=== PATIENT | female | born 2000 | race Two or more races ===

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

== ENCOUNTER → 2022-01-05 11:03 | Outpatient (BNVA) | payer MEDICAID, SELFPAY | PROVIDERS: Visit Provider Advanced Practice Midwife | DX: Z30.42 Encounter for surveillance of injectable contraceptive (principal) | CPT/HCPCS: 96372; 99211 ==

== ENCOUNTER → 2022-03-30 14:37 | Outpatient (BNVA) | payer MEDICAID, SELFPAY | PROVIDERS: Visit Provider Advanced Practice Midwife | DX: Z30.42 Encounter for surveillance of injectable contraceptive (principal) | CPT/HCPCS: 96372; 99211 ==

== ENCOUNTER 2023-03-11 12:43 | Emergency (ER) | payer OTHER, SELFPAY ==
[2023-03-11 13:32] VITALS: BP 126/75; PULSE 83; RESP 15; TEMP 36.2; O2SAT 98; BMI 28.2
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
[2023-03-11 15:02] VITALS: BP 130/66; PULSE 76; RESP 18; TEMP 36.5; O2SAT 100
== END 2023-03-11 15:26 | disposition home or self-care (01) ==
PROVIDERS: Emergency Provider Emergency Medicine Emergency Medical Services
DX: S50.02XA Contusion of left elbow, initial encounter (principal); S39.012A Strain of muscle, fascia and tendon of lower back, initial encounter; V43.52XA Car driver injured in collision with other type car in traffic accident, initial encounter; Y93.9 Activity, unspecified; Y92.9 Unspecified place or not applicable
CPT/HCPCS: 73070; 99283

== ENCOUNTER 2025-08-16 02:43 | Emergency (ER) | payer MEDICAID, SELFPAY ==
--- NOTE | ~2025-08-16 | XR_ITS ---
CLINICAL HISTORY: cp sob 1 view chest x-ray Comparison: None provided Findings: The lungs are clear. Normal size heart. No acute fracture. IMPRESSION: 1. No acute findings. This document has been electronically signed by: Miguel Levine MD on 08/16/2025 05:50:21
--- NOTE | ~2025-08-16 | US_ITS ---
CLINICAL HISTORY: RUQ pain eval for acute rickey US abdomen limited Comparison: None provided Findings: The visualized pancreas is normal. The aorta and inferior vena cava are normal caliber. The appearance of the liver suggests fatty infiltration. There is no intrahepatic bile duct dilatation. The common duct is 3.8 mm in diameter. There are tiny gallstones. The gallbladder is otherwise normal. There is no sonographic Mendez sign. The main portal vein is antegrade. The right kidney is 10.4 cm in length. No ascites. IMPRESSION: 1. Hepatic steatosis. 2. Cholelithiasis This document has been electronically signed by: Francisco Goode MD on 08/16/2025 08:19:28
[2025-08-16 02:45] VITALS: PULSE 78
--- NOTE | 2025-08-16 02:46 | ECG_ITS ---
Test Reason : CHEST PAIN Blood Pressure : */* mmHG Vent. Rate : 69 BPM Atrial Rate : 69 BPM P-R Int : 150 ms QRS Dur : 82 ms QT Int : 426 ms P-R-T Axes : 60 20 22 degrees QTcB Int : 456 ms Normal sinus rhythm Normal ECG No previous ECGs available Referred By: [facility] Electronically Signed By: YEISON HOYT MD
[2025-08-16 02:53] VITALS: BP 145/89; PULSE 76; RESP 18; TEMP 36.5; O2SAT 100; BMI 33.4
[2025-08-16 03:13] VITALS: BP 145/89; PULSE 80; RESP 16; TEMP 36.5; O2SAT 100
[2025-08-16 03:26] LABS: Hematocrit 38.4 % (37.0-47.0); Hemoglobin 12.7 g/dl (12.0-16.0); Imm Gran Abs Auto 0.02 X10*3/uL (0.00-0.03); Imm Gran Pct Auto 0.3 % (0.0-0.4); Lymphocytes Absolute Auto 2.7 X10*3/uL (1.2-4.9); MANUAL DIFF FLAG NO; Mean Corpuscular HGB Conc 33.1 g/dl (31.0-35.0); Mean Corpuscular Hemoglobin 26.6 pg (27.0-33.0); Mean Corpuscular Volume 80.3 fL (80.0-98.0); NRBC Abs Auto 0.000 X10*3/uL (0.0-0.012); NRBC Pct Auto 0.0 /100WBC (0.0-0.2); Platelet Count 370 X10*3/uL (160-400); Red Blood Count 4.78 X10*6/uL (4.20-5.50); White Blood Count 7.9 X10*3/uL (4.8-10.8)
--- OUTSIDE RECORDS SUMMARY | 2025-08-16 03:36 | XMS_ITS | Encounter Summary ---
Author Organization [employer] Address [address] [place] [address] Care Team Providers Care Overhead Foreman Name Role Phone Alyssia [facility] Primary Care Provider [phone] Encounter Details Date Type Department Care Team ([facility] Contact Info) Description 08/16/2025 Orders Only GENERIC EXTERNAL DATA DEPARTMENT Provider, Generic External Data Social History Tobacco Use Types Packs/Day Years Used Date Smoking Tobacco: Some Days Cigarettes Smokeless Tobacco: Never Alcohol Use Standard Drinks/Week Comments Never 0 (1 standard drink = 0.6 oz pur e alcohol) Depression Answer Date Recorded Patient Health Questionnaire-9 Score 0 07/08/2025 Patient Health Questionnaire-9 Score 0 07/08/2025 Last PHQ-9: Questionnaire Data Not on file 1 Housing Stability Answer Date Recorded What is your housing situation today? I have breana huston 07/11/[address] you li ve. Do you have problems with any of the following? None of the above 07/11/2023 Food Insecurity Answer Date Recorded Within the past 12 months, y ou worried that your food would run out before you got money to buy more: Never True 07/11/2023 Within the past 12 months,th e food you bought just didn't last and you didn't have enough money to get more: Never True 09/2022 Transportation Answer Date Recorded In the past 12 months, has l ack of transportation kept you from medical appts, meetings, work or from getting things needed for daily living? No 07/11/2023 Utilities Answer Date Recorded In the past 12 months, has t he electric, gas, oil or water company threatened to shut off services in your home? No 07/11/2023 Depression Answer Date Recorded Patient Health Questionnaire-2 Score 0 07/08/2025 Comments No Sex and Gender Information Value Date Recorded Sex Assigned at Female 07/10/2022 10:16 AM EDT Legal Sex Female 10:16 AM EDT Gender Identity Female 07/10/2022 10:16 AM EDT Sexual Orientation Choose not to disclose 2021 10:16 AM EDT documented as of this encounter Plan of Treatment Upcoming Encounters Date Type Department Care Team (Late st Contact Info) Description 09/25/2025 11:00 AM EST Office Visit [facility] OPTOMETRY [address] [place] [address] Porter, Yoana, OD [address] [place] [address] 09/30/2025 10:30 AM EST Office Visit [facility] MEDICINE [address] [place] [address] Bryan, Ewa, MANUFACTURING DESIGN ENGINEER [address] [place] [address] documented as of this encounter Procedures Procedure Name Priority Date/Time Associated Diagnosis Comments CBC WITH AUTO DIFFERENTIAL Routine 08/16/2025 3:19 AM EST documented in this encounter Results * (ABNORMAL) CBC auto differential (08/16/2025 3:19 AM EST) White Blood Count 7.9 4.8 - 10.8 X10*3/uL [facility] Red Blood Count 4.78 4.20 - 5.50 X10*6/uL [facility] Hemoglobin 12.7 12.0 - 16.0 g/dl [facility] Hematocrit 38.4 37.0 - 47.0 % [facility] Mean Corpuscular Volume 80.3 80.0 - 98.0 fL [facility] Mean Corpuscular Hemoglobin 26.6(L) 27.0 - 33.0 pg [facility] Mean Corpuscular HGB Conc 33.1 31.0 - 35.0 g/dl [facility] Red Cell Distribution Width 12.9 11.0 - 16.0 % [facility] Platelet Count 370 160 - 400 X10*3/uL [facility] Mean Platelet Volume 9.5 9.4 - 12.3 fL [facility] Neutrophils Percent Auto 57.6 45 - 73 % [facility] Imm Gran Pct Auto 0.3 0.0 - 0.4 % [facility] Lymphocytes Percent Auto 34.1 20 - 40 % [facility] Monocytes Percent Auto 5.6 2 - 11 % [facility] Eosinophils Percent Auto 1.9 0 - 4 % [facility] Basophils Percent Auto 0.5 0 - 2 % [facility] NRBC Pct Auto 0.0 0.0 - 0.2 /100WBC [facility] Neutrophils Absolute Auto 4.6 2.0 - 8.3 x10*3/uL [facility] Imm Gran Abs Auto 0.02 0.00 - 0.03 X10*3/uL [facility] Lymphocytes Absolute Auto 2.7 1.2 - 4.9 X10*3/uL [facility] Monocytes Absolute Auto 0.4 0.1 - 1.2 X10*3/uL [facility] Eosinophils Absolute Auto 0.2 0.0 - 0.4 X10*3/uL [facility] Basophils Absolute Auto 0.0 0.0 - 0.2 X10*3/uL [facility] NRBC Abs Auto 0.000 0.0 - 0.012 X10*3/uL [facility] 08/16/2025 3:19 AM EST 08/16/2025 3:24 AM EST us Generic External Data Provider LAB BLOOD ORDERAB LES Final Result [facility] [address] [place] [address] [phone] documented in this encounter Visit Diagnoses Not on filedocumented in this encounter Additional Health Concerns Assessment Noted Time PHQ-9 Depression Total Score: 0 07/08/20 25 11:48 AM EDT documented as of this encounter Care Teams Overhead Foreman Relationship Specialty Start Date End Date Bryan SAMMIE Mcneil [address] [place] [phone] PCP - General Family Medicine 03/07/22 documented as of this encounter
--- OUTSIDE RECORDS SUMMARY | 2025-08-16 03:36 | XMS_ITS | Clinical Summary ---
Author Organization [employer] Address [address] [facility] 7[address] [place] [address] Care Team Providers Care Commercial Account Executive Name Role Phone Ewa Cade [facility] Primary Care Provider [phone] Allergies No known active allergies Medications * This document contains information received from the source organization and may not represent a complete record from that organization. Spacer/Aero-Holdin g Chambers (Pro Comfort Spacer Adult) miscIndications:Mo derate persistent asthma without complication Use as directed with inhaler 1 each 3 Active medroxyPROGESTERon e (Depo-Provera) 150 MG/ML injectionIndicatio ns:Encounter for initial prescription of injectable contraceptive Inject 1 mL (150 mg) into the shoulder, thigh, or buttocks every 3 (three) months. 1 mL 3 3 Active cetirizine (ZyrTEC) 10 MG tabletIndications: Moderate persistent asthma without complication TAKE 1 TABLET BY MOUTH EVERY DAY IN THE MORNING 90 tablet 1 5 Active albuterol (Ventolin HFA) 108 (90 Base) MCG/ACT inhalerIndications :Moderate persistent asthma without complication INHALE 2 PUFFS BY MOUTH EVERY 4 TO 6 HOURS NEEDED WITH SPACER 18 g 11 5 Active budesonide-formote rol (Symbicort) 80-4.5 MCG/ACT inhalerIndications :Moderate persistent asthma without complication INHALE 2 PUFFS BY MOUTH TWICE DAILY. RINSE MOUTH AFTER USING. DO NOT SWALLOW 10.2 g 11 5 Active NIFEdipine CC (Adalat CC) 30 MG 24 hr tablet Take 1 tablet by mouth Once per day. 5 Active Hospital, Clinic, or Other Facility Administered Medication Ordered Dose Route Frequency Start Date End Date Status medroxyPROGESTERone (Depo-Provera) injection 150 mgIndications:Encounte r for initial prescription of injectable contraceptive 150 mg IM Every 3 months 01/10/2023 12/19/2112 Active Active Problems Problem Noted Date Diagnosed Date Acute cough 09/18/2024 Reduced visual acuity 01/10/2023 Allergic rhinitis 04/07/2013 Anxiety disorder, unspecified 03/03/2013 Overview (03/08/2023): Sertraline 25mg Trazodone PRN Social anxiety/panic disorder On waitlist with [facility] Asthma 01/27/2013 Overview (03/08/2023): Symbicort Albuterol Cetirizine Assessment & Plan (09/18/2024 1:37 PM EST): Pt here with an acute asthmatic exacerbation, not improving despite regular use of inhalers Plan: Short prednisone taper, Z-pack, continue inhalers Follow up if no improvement or worsening Encounters * This document contains information received from the source organization and may not represent a complete record from that organization. Date Type Department Care Team Description 08/16/2025 Orders Only GENERIC EXTERNAL DATA DEPARTMENT Provider, Generic External Data 07/08/2025 11:30 AM EDT Office Visit [facility] [address] [place] [id number] [facility] Gestational hypertension without significant proteinuria, (Primary Dx); Anxiety disorder, unspecified type; Encounter for immunization; Encounter for vaccination 07/08/2025 Travel from Last 3 Months Immunizations Immunization Administration Dates Next Due HPV 9-Valent 11/30/2015,02/26/2015 Hep A, ped/adol, 2 dose 02/05/2019,01/28/2018 Hep B, Adolescent or Pediatric 2002,2001,2002 Hib (HbOC) 06/18/2003,2002,2002 IPV 03/21/2006,2002,2002 Influenza injectable quadriv alent IIV4 with preservative 11/30/2015 Influenza injectable quadriv alent preservative free 10/08/2019 Influenza, IIV3, injectable 06/17/2010, 8 Influenza, seasonal, injecta ble, preservative free 07/08/2025 MMR 03/21/2006,03/23/2003 Meningococcal MCV4P [id number]-135 02/05/2019,02/27/20 15 Pfizer Covid-19 Vaccine 12+ 07/08/2025 Pneumococcal Conjugate PCV 7 06/18/2003, 2002,2002,05/22 Tdap 02/26/2015 Varicella 04/07/2008,03/23/2003 Family History Medical History Relation Name Comments Breast cancer Neg Hx Colon cancer Neg Hx Social History Tobacco Use Types Packs/Day Years Used Date Smoking Tobacco: Some Days Cigarettes Smokeless Tobacco: Never Tobacco Cessation:Ready to Q uit: Not Asked; Counseling Given: Not Answered Alcohol Use Standard Drinks/Week Comments Never 0 [...] not to disclose 2021 10:16 AM EDT Last Filed Vital Signs Vital Sign Reading Time Taken Comments Blood Pressure 128/82 07/08/2025 11:46 AM EDT Pulse 86 07/08/2025 11:46 AM EDT Temperature 37.3 C (99.2 F) 07/08/2025 11:46 AM EDT Respiratory Rate 18 07/08/2025 11:46 AM EDT Oxygen Saturation 98% 09/18/2024 1:09 PM EST Inhaled Oxygen Concentration - - Weight 71.4 kg (157 lb 6.4 oz) 07/08/2025 11:46 AM EDT Height 149.9 cm (4' 11 ) 07/08/2025 11:46 AM EDT Body Mass Index 31.79 07/08/2025 11:46 AM EDT Plan of Treatment Upcoming Encounters Date Type Department Care Team (Late st Contact Info) Description 09/25/2025 11:00 AM EST Office Visit [facility] [address] [place] [address] Porter, Yoana, OD [address] [place] [address] 09/30/2025 10:30 AM EST Office Visit [facility] [address] [place] [address] [place], [place], [facility] [address] [place] [address] Health Maintenance Due Date Last Done Comments HIV Screening 2002 Lipid Panel 2002 Disability Screening 2002 Alcohol/Substance Use Screening 2014 Family Planning (PISQ) 2017 Meningococcal B Vaccine (1 of 2 - Standard) 2018 Hepatitis C Screening 2020 Pneumococcal Vaccine: Pediatrics (0 to 5 Years) and At-Risk Patients (6 to 49) Years (1 of 2 - PCV) 2021 06/18/2003, 2002, 2002, Additional history exists Pap Smear 2023 SDOH Screening 02/07/2024 02/06/2023 Chlamydia and Gonorrhea Screening 10/06/2025 10/06/2024, 10/06/2024, 03/02/2021, Additional history exists Depression Screening 07/08/2026 07/08/2025, 07/08/20 25 Tobacco Screening 07/09/2026 07/09/2025 DTaP/Tdap/Td Vaccines (7 - Td or Tdap) 03/09/2035 03/09/2025, 02/26/2015, 03/21/2006, Additional history exists Zoster Vaccines (1 of 2) 2052 RSV Patients and Patients Aged 60 years or older (1 - 1-dose 75+ series) 2077 Hepatitis B Vaccines Completed 2002, 2002, 2002 HIB Vaccines Completed 06/18/2003, 09/10, 2002, Additional history exists IPV Vaccines Completed 03/21/2006, 12/09, 2002, Additional history exists HPV Vaccines Completed 11/30/2015, 02/26/2015 Hepatitis A Vaccines Completed 02/05/2019, 01/29/20 18 Meningococcal Vaccine Completed 02/05/2019, 015 COVID-19 Vaccine Completed 07/08/2025, 04/2021, 04/27/2021 Influenza Vaccine Completed 07/08/2025, , 11/30/2015, Additional history exists RSV under 20 months Aged Out No longe r eligible based on patient's age to complete this topic Rotavirus Vaccines Aged Out No longer eligible based on patient's age to complete this topic Procedures Procedure Name Priority Date/Time Associated Diagnosis Comments CBC WITH AUTO DIFFERENTIAL Routine 08/16/2025 3:19 AM EST from Last 3 Months Results * (ABNORMAL) CBC auto differential (08/16/2025 3:19 AM EST) White Blood Count 7.9 4.8 - 10.8 X10*3/uL [facility] Red Blood Count 4.78 4.20 - 5.50 X10*6/uL [facility] Hemoglobin 12.7 12.0 - 16.0 g/dl [facility] Hematocrit 38.4 37.0 - 47.0 % [facility] Mean Corpuscular Volume 80.3 80.0 - 98.0 fL [facility] Mean Corpuscular Hemoglobin 26.6(L) 27.0 - 33.0 pg [facility] Mean Corpuscular HGB Conc 33.1 31.0 - 35.0 g/dl [facility] Red Cell Distribution Width 12.9 11.0 - 16.0 % [facility] Platelet Count 370 160 - 400 X10*3/uL [facility] Mean Platelet Volume 9.5 9.4 - 12.3 fL [facility] Neutrophils Percent Auto 57.6 45 - 73 % [facility] Imm Gran Pct Auto 0.3 0.0 - 0.4 % [facility] Lymphocytes Percent Auto 34.1 20 - 40 % [facility] Monocytes Percent Auto 5.6 2 - 11 % [facility] Eosinophils Percent Auto 1.9 0 - 4 % [facility] Basophils Percent Auto 0.5 0 - 2 % [facility] NRBC Pct Auto 0.0 0.0 - 0.2 /100WBC [facility] Neutrophils Absolute Auto 4.6 2.0 - 8.3 x10*3/uL [facility] Imm Gran Abs Auto 0.02 0.00 - 0.03 X10*3/uL [facility] Lymphocytes Absolute Auto 2.7 1.2 - 4.9 X10*3/uL [facility] Monocytes Absolute Auto 0.4 0.1 - 1.2 X10*3/uL [facility] Eosinophils Absolute Auto 0.2 0.0 - 0.4 X10*3/uL [facility] Basophils Absolute Auto 0.0 0.0 - 0.2 X10*3/uL [facility] NRBC Abs Auto 0.000 0.0 - 0.012 X10*3/uL [facility] 08/16/2025 3:19 AM EST 08/16/2025 3:24 AM EST us Generic External Data Provider LAB BLOOD ORDERAB LES Final Result [facility] [address] [place] [address] [phone] from Last 3 Months Insurance Packet [employer] C3 * Guarantor: Gilberto Flores Account Type Relation to Patient Date of Phone Billing Address Personal/Family Self [address] [place] [address] Care Teams Commercial Account Executive Relationship Specialty Start Date End Date Ewa Cade FNP [address] [place] [address] PCP - General Family Medicine 03/07/22
[2025-08-16 03:40] LABS: IDNOW Serial# 55D5AD1C
[2025-08-16 03:41] LABS: COVID-19 Test Negative (Negative); IDNOW Serial# 58CA691E; Influenza B2 Negative (Negative)
[2025-08-16 03:49] LABS: Alanine Aminotransferase 41 U/L (0-31); Albumin Level 4.7 g/dL (3.5-5.0); Alkaline Phosphatase 104 U/L (39-117); Anion Gap 12 (12-20); Aspartate Amino Transferase 33 U/L (5-31); Blood Urea Nitrogen 12 mg/dL (9-16); Calcium 9.4 mg/dL (8.4-10.2); Carbon Dioxide 20 mmol/L (22-29); Chloride 111 mmol/L (96-108); Creatinine Clr Calc Pharmacy 111.9; Estimated Glomerular Filt Rate > 60; Magnesium 2.0 mg/dL (1.6-2.6); Potassium 4.3 mmol/L (3.3-5.1); Sodium 139 mmol/L (135-145); Total Protein 7.3 g/dL (6.5-8.0); Troponin-I High Sensitivity < 2.7 ng/L (<3.5-17.0)
--- NOTE | 2025-08-16 04:55 | ED_ITS ---
HPI - Chest Pain General Chief Complaint: Chest Pain Stated Complaint: CP Time Seen by Provider: 08/16/25 04:55 Source: patient Mode of arrival: ambulatory Limitations: no limitations History of Present Illness ED Provider: Dr. Blanca Jones HPI narrative: 25 year old female, currently post- (2 months) with no significant past medical or surgical history presents with epigastric/right upper quadrant pain that began around midnight while she was awake and bottle-feeding her infant. Pain is described as constant ?pressure? under the breastbone, radiating to the right mid-back. Current episode has persisted longer than two previous similar episodes that occurred within the first month after delivery and resolved spontaneously after 1?2 hours. Associated symptoms: nausea and a sensation of needing a bowel movement; denies vomiting, diarrhea, shortness of breath, or fever. No clear association with food intake; typically eats twice daily. Took acetaminophen at onset (~0000) with minimal relief. No prior abdominal surgeries. Regular menses resumed post-. Related Data Previous Rx's ?Medication ?Instructions ?Recorded medroxyprogesterone 150 mg/mL 150 mg IM Q12W #1 mL intramuscular suspension medroxyprogesterone 150 mg/mL 150 mg IM [id number] 3 mon ths #1 mL 01/02/22 intramuscular suspension cyclobenzaprine 5 mg tablet 5 mg PO TID PRN muscle spa sm #10 03/11/23 tabs ibuprofen 600 mg tablet 600 mg PO TID PRN pain #14 t abs 03/11/23 ibuprofen 600 mg tablet 600 mg PO Q8H PRN fever or p ain 08/16/25 #30 tabs ondansetron 4 mg disintegrating 4 mg PO Q8H PRN nausea and 08/16/25 tablet vomiting #10 tabs Allergies Allergy/AdvReac Type Severity Reaction Status Date / Time No Known Allergies Allergy Verified 08/16/25 02:55 Review of Systems 2 Review of Systems: as per HPI, full review of systems performed and negative but for the above mentioned pertinent positives and negatives. [facility] Social History Social History Alcohol intake: never Smoked in Last 30 Days: No Use of substances other than those prescribed or required for medical reasons: No Advance Directives: No Do you have a plan to hurt others: No Plan Patient : No Gender identity: Female Physical Exam 2 Exam: Exam: GENERAL: Ill-Appearing, appears uncomfortable. SKIN: Normal skin color for ethnicity, warm, dry, no rashes noted. HEENT:? Normocephalic, atraumatic, no stridor, dry mucous membranes, dentition intact, EOMI. NECK: Soft, supple, full ROM, midline structures nontender, no step-offs, no deformities, no lymphadenopathy. CHEST: Heart regular tachycardia, no murmurs, symmetric chest rise and fall. PULMONARY: Clear to auscultation bilaterally, diminished at the bases, no labored breathing, no wheezes/rhales/rhonchi. ABDOMINAL: Soft, nondistended, RUQ tenderness to palpation with voluntary guarding, quiet bowel sounds in all quadrants. : Deferred. MUSCULOSKELETAL: Normal tone, full range of motion, no deformities, no peripheral edema. NEURO: Alert and oriented x3, CN II through XII intact, equal strength and sensation bilateral upper and lower extremities, no focal neurologic deficits.? PSYCHIATRIC: Flat affect, fluid speech, good eye contact and appropriate demeanor. Vital Signs: Vital Signs: Last Vital Signs Temp 98.1 F 08/16/25 07:28 Pulse 75 08/16/25 07:28 Resp 16 08/16/25 07:28 BP 136/73 08/16/25 07:28 Pulse Ox 100 08/16/25 07:28 O2 Del Method Room Air 08/16/25 07:28 BMI result Body Mass Index 33.4 Medications Administered Discontinued Medications Generic Name Dose Route Start Last Admin Trade Name Roman PRN Reason Stop Dose Admin Ibuprofen 600 mg 08/16/25 05:30 08/16/25 06:16 Ibuprofen 600 Mg Tablet PO 08/16/25 05:31 600 mg ONCE ONE Administration Ondansetron HCl 4 mg 08/16/25 05:30 08/16/25 06:16 Ondansetron Odt 4 Mg Tab.Rapdis TRANSLINGU 08/16/25 05:31 4 mg ONCE ONE Administration Medical Decision Making Medical Decision Making MDM Narrative: 25 year old post- female with episodic RUQ/epigastric pain, nausea, and positive Mendez?s sign. Bedside ultrasound demonstrates cholelithiasis with a stone. Labs without evidence of obstruction or infection. Recent increases risk for gallbladder disease due to anatomical changes. Problem #1: Symptomatic cholelithiasis / Biliary colic Assessment: RUQ pain with radiation to back, positive Mendez?s sign, and bedside US showing large gallstone; labs do not indicate obstruction or cholecystitis at this time. Plan: * Pain control: administer analgesia per ED protocol. * Formal abdominal ultrasound by facility technician for complete evaluation of CBD diameter. * Chest X-ray ordered to assess alternative thoracic etiologies. * Discussed possibility of eventual cholecystectomy if symptoms persist or recur; not emergent tonight. Differential Diagnosis Differential Diagnoses: The differential diagnosis associated with the presentation includes (as above) Admission/Observation Consideration of admission/observation: Escalation of care including admission/observation considered Lab Data MDM Lab Attestation statement: I reviewed the patient's lab results. 08/16/25 03:19 08/16/25 03:19 Labs: Lab Results 08/16/25 Range/Units 03:19 WBC 7.9 (4.8-10.8) X10*3/uL RBC 4.78 (4.20-5.50) X10*6/uL Hgb 12.7 (12.0-16.0) g/dl Hct 38.4 (37.0-47.0) % MCV 80.3 (80.0-98.0) fL MCH 26.6 L (27.0-33.0) pg MCHC 33.1 (31.0-35.0) g/dl RDW 12.9 (11.0-16.0) % Plt Count 370 (160-400) X10*3/uL MPV 9.5 (9.4-12.3) fL Immature Gran % (Auto) 0.3 (0.0-0.4) % Neut % (Auto) 57.6 (45-73) % Lymph % (Auto) 34.1 (20-40) % [place] % (Auto) 5.6 (2-11) % Eos % (Auto) 1.9 (0-4) % Baso % (Auto) 0.5 (0-2) % Lymph # (Auto) 2.7 (1.2-4.9) X10*3/uL [place] # (Auto) 0.4 (0.1-1.2) X10*3/uL Eos # (Auto) 0.2 (0.0-0.4) X10*3/uL Baso # (Auto) 0.0 (0.0-0.2) X10*3/uL Abs Immat Gran (auto) 0.02 (0.00-0.03) X10*3/uL Absolute Neuts (auto) 4.6 (2.0-8.3) x10*3/uL Absolute Nucleated RBC 0.000 (0.0-0.012) X10*3/uL Nucleated RBC % (auto) 0.0 (0.0-0.2) /100WBC Sodium 139 (135-145) mmol/L Potassium 4.3 (3.3-5.1) mmol/L Chloride 111 H (96-108) mmol/L Carbon Dioxide 20 L (22-29) mmol/L Anion Gap 12 (12-20) BUN 12 (9-16) mg/dL Creatinine 0.69 (0.5-1.4) mg/dL Estim Creat Clear Calc 111.9 Estimated GFR > 60 Random Glucose 107 (60-115) mg/dL Calcium 9.4 (8.4-10.2) mg/dL Magnesium 2.0 (1.6-2.6) mg/dL Total Bilirubin 0.5 (0.0-1.0) mg/dL AST 33 H (5-31) U/L ALT 41 H (0-31) U/L Alkaline Phosphatase 104 (39-117) U/L Troponin I High Sens < 2.7 (<3.5-17.0) ng/L Total Protein 7.3 (6.5-8.0) g/dL Albumin 4.7 (3.5-5.0) g/dL Beta HCG, Quant < 2 mIU/mL COVID-19 (OFELIA) Negative (Negative) COVID-19 Clin Com See Note Influenza Type A (CARTER) Negative (Negative) Influenza Type B (CARTER) Negative (Negative) Influenza A & B Note See Note Independent Interpretation I performed an independent interpretation of an: EKG, Plain X-Ray and Ultrasound Interpretation: My independent interpretation of the chest x-ray reveals no consolidations, pulmonary edema, pleural effusion, pneumothorax, obvious bony abnormalities. My independent interpretation of the ECG reveals normal sinus rhythm with rate of 69, normal axis, normal intervals, no ST elevations or depressions to suggest ischemic changes, no previous for comparison Radiology Impression Discussion of test interpretation with radiology: I have reviewed the radiologist's reading. External Record Review External record reviewed: Inpatient record Prescription Management I considered prescription management with: Pain Medication Social Determinants Patient?s care significantly limited by Social Determinants of Health including: Other Social Determinant of Health Discharge Plan Discharge Clinical Impression: Biliary colic, Acute abdominal pain in right upper quadrant Patient Disposition: Home, Self-Care Instructions: Biliary Colic (ED) Additional Instructions: Use ibuprofen and Tylenol as needed for pain. You may also use Zofran for nausea. Follow up with the general surgeon regarding gallstones. If you develop any new or worsening symptoms including: Fever, worsening pain despite medication, inability to tolerate food or drink despite Zofran or any new symptom that concerns you, you should return to the emergency department immediately. Call 911 with any medical emergency. Prescriptions: New ibuprofen 600 mg tablet 600 mg PO Q8H PRN (Reason: fever or pain) Qty: 30 0RF ondansetron 4 mg tablet,disintegrating 4 mg PO Q8H PRN (Reason: nausea and vomiting) Qty: 10 0RF No Action medroxyprogesterone 150 mg/mL suspension 150 mg IM [id number] 90 Days Qty: 1 2RF ibuprofen 600 mg tablet 600 mg PO TID PRN (Reason: pain) Qty: 14 0RF cyclobenzaprine 5 mg tablet 5 mg PO TID PRN (Reason: muscle spasm) Qty: 10 0RF medroxyprogesterone 150 mg/mL suspension 150 mg IM Q12W Qty: 1 6RF Referrals: [facility] General Surgeons [Provider Group, General Surgery] Clinical Impression: Biliary colic Print Language: Georgian
[2025-08-16 07:28] VITALS: BP 136/73; PULSE 75; RESP 16; TEMP 36.7; O2SAT 100
--- NOTE | 2025-08-16 07:46 | PC.NURSE ---
nad, no complaints, skin wpd, alert, sr on monitor
[2025-08-16 08:28] VITALS: BP 123/73; PULSE 76; RESP 18; TEMP 36.6; O2SAT 98
== END 2025-08-16 08:30 | disposition home or self-care (01) ==
PROVIDERS: Emergency Provider Emergency Medicine
DX: K80.50 Calculus of bile duct without cholangitis or cholecystitis without obstruction (principal); R10.11 Right upper quadrant pain
CPT/HCPCS: 71045; 76705; 80053; 83735; 84484; 84702; 85025; 87502; 87635; 93005; 99284; 99285

== ENCOUNTER → 2025-08-16 02:46 | Outpatient (BNV) | payer MEDICAID, SELFPAY | PROVIDERS: Emergency Provider Emergency Medicine; Visit Provider Internal Medicine Cardiovascular Disease | DX: R07.9 Chest pain, unspecified (principal) | CPT/HCPCS: 93010 ==

== ENCOUNTER → 2025-08-16 03:15 | Outpatient (BNV) | payer MEDICAID, SELFPAY | PROVIDERS: Emergency Provider Emergency Medicine; Visit Provider Radiology Diagnostic Radiology | DX: K76.0 Fatty (change of) liver, not elsewhere classified (principal); K80.20 Calculus of gallbladder without cholecystitis without obstruction; R07.9 Chest pain, unspecified; R06.02 Shortness of breath | CPT/HCPCS: 71045; 76705 ==

== ENCOUNTER 2025-08-19 13:48 | Outpatient (AMB) | payer MEDICAID, SELFPAY ==
--- NOTE | 2025-08-19 13:52 | MHC.OFFVIS ---
Vital Signs 08/19/25 13:53 Height 4 ft 11 in Weight 157 lb BMI 31.7 BP 135/67 Blood Pressure Location Rt brachial Position Sitting Pulse 99 Intake Visit Reasons: gallstones Intake Note: Patient seen at [facility] ED for abdominal pain. Here today for evaluation and treatment of gallstones. Patient c/o: on and off pain on RUQ.Certain foods can make it pain worse. 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 Ultrasound indicative of uncomplicated cholelithiasis. She is interested in pursuing cholecystectomy. She has no history of any abdominal surgery. She denies any obstructive symptomatology. [facility] Social History (Updated 08/19/25 @ 13:59 by RASHEL Arguello) Alcohol intake: never Patient Tobacco Use Status: Never used Tobacco Gender identity: Female Female Reproductive History Menstrual Age of Menarche: 14 Review of Systems Const All systems reviewed & are unremarkable except as noted in HPI and below Physical Exam Vital Signs: Last Vital Signs Pulse 99 08/19/25 13:53 BP 135/67 08/19/25 13:53 BMI result Body Mass Index 31.7 HEENT Head: Yes normal to inspection Ears: hearing grossly normal bilaterally General nose exam: Normal external nose present Eyes General: appearance normal, both eyes and all related structures Sclerae: sclerae normal Pupils: Equal, round and reactive pupils present EOM: EOMs intact bilaterally Neck Neck: Yes normal visual inspection Chest Chest palpation & inspection: normal inspection of the chest Resp Effort & Inspection: normal respiratory effort and able to speak in complete sentences Cardio Rate: regular rate Rhythm: regular rhythm GI Other: Obese nontender nondistended vague discomfort to deep palpation in the epigastrium and right upper quadrant. No scars or masses or hernias. Back/Spine/Pelvis Cervical Spine: normal cervical lordosis Thoracic/Lumbar Spine: thoracic and lumbar spine normal to inspection Neuro Cranial nerves: Yes Equal, round and reactive pupils present Assessment & Plan Assessment & Plan (1) Cholelithiasis: Code(s): K80.20 - Calculus of gallbladder without cholecystitis without obstruction Category: Medical Plan: I told the patient her presentation was consistent with symptomatic cholelithiasis and I offered her laparoscopic cholecystectomy. We reviewed the risks that are involved with such a procedure. These include but are not limited to the risk of bleeding, the risk of infection, the risk of damage to surrounding structures, the risk of retained common bile duct stones, the risk of cystic duct stump leak, the risk of conversion to an open procedure, the risk of chronic pain and the risk of unsightly scarring were all reviewed with her in detail. She told me that she carefully considered her options. She told me that she understood and accepted the risks she described as inherent to such an endeavor and lastly indicated that despite the risks she still wished to proceed with surgery. Coding Level of Care Code New Pt Level 3 (56498) Diagnoses Cholelithiasis K80.20 Time Spent (min) 30 Comment Patient visit record review and coordination of care time
[2025-08-19 13:53] VITALS: BP 135/67; PULSE 99; BMI 31.7
--- OUTSIDE RECORDS SUMMARY | 2025-08-19 21:21 | XMS_ITS | Encounter Summary ---
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 Role Phone Alyssia [facility] Primary Care Provider [phone] Encounter Details Date Type Department Care Team ([facility] Contact Info) Description 08/16/2025 Orders Only GENERIC [...] Description 09/25/2025 11:00 AM EST Office Visit [facility] OPTOMETRY [address] [place] [address] Porter, Yoana, OD [address] [place] [address] 09/30/2025 10:30 AM EST Office Visit [facility] MEDICINE [address] [place] [address] [place], Ewa, SUPERVISOR BOARDING [address] [place] [address] documented as of this encounter Procedures Procedure Name Priority Date/Time Associated Diagnosis Comments US ABDOMEN LIMITED Routine 08/16/2025 8: 19 AM EST XR CHEST 1 VIEW Routine 08/16/2025 5:50 AM EST INFLUENZA A B2 ID NOW (Runscope) Routine 08/16/2025 3:19 AM EST COVID-19 ID NOW (RUIZ) Routine 08/16/2025 3:19 AM EST HIGH SENSITIVITY TROPONIN I Routine 08/16/2025 3:19 AM EST CBC WITH AUTO DIFFERENTIAL Routine 08/16/2025 3:19 AM EST HCG, TOTAL, QN Routine 08/16/2025 3:19 AM EST MAGNESIUM Routine 08/16/2025 3:19 AM EST COMPREHENSIVE METABOLIC PANEL Routine 08/16/2025 3:19 AM EST documented in this encounter Results * US Abdomen Limited (08/16/2025 8:19 AM EST) Anatomical Region Laterality Modality Abdomen Ultrasound 08/16/2025 8:19 AM EST Narrative 08/16/2025 8:21 AM EST [address] [address] Ultrasound Report Signed Patient: Gilberto Flores MR#: [id number] : 2000 Acct:[id number] Age/Sex: 25 / F ADM Date: 08/16/25 Loc: HO.ED Attending Dr: Ordering Physician: Blanca Jones DO Date of Service: 08/16/25 Procedure(s): US abdomen limited Accession Number(s): [id number] cc: Blanca Jones DO; [facility] Reason for Exam: RUQ pain eval for acute rickey CLINICAL HISTORY: RUQ pain eval for acute rickey US abdomen limited Comparison: None provided Findings: The visualized pancreas is normal. The aorta and inferior vena cava are normal caliber. The appearance of the liver suggests fatty infiltration. There is no intrahepatic bile duct dilatation. The common duct is 3.8 mm in diameter. There are tiny gallstones. The gallbladder is otherwise normal. There is no sonographic Mendez sign. The main portal vein is antegrade. The right kidney is 10.4 cm in length. No ascites. IMPRESSION: 1. Hepatic steatosis. 2. Cholelithiasis This document has been electronically signed by: Francisco Goode MD on 08/16/2025 08:19:28 Dictated By: Francisco Goode MD Signed By: <Electronically signed by Francisco Goode MD in OV> 08/16/25819 DD/ 8 TD/TT: 08/16/25818 Laserist: Procedure Note Donotuseinterpreter, Image - 08/16/[address] [address] Ultrasound Report Signed Patient: Serg FloresR#: [id number] : 2000Acct:[id number] Age/Sex: 25 / FADM Date: 08/16/25 Loc: HO.ED Attending Dr: Ordering Physician: Blanca Jones DO Date of Service: 08/16/25 Procedure(s): US abdomen limited Accession Number(s): [id number] cc: Blanca Jones DO; [facility] Reason for Exam: RUQ pain eval for acute rickey CLINICAL HISTORY: RUQ pain eval for acute rickey US abdomen limited Comparison: None provided Findings: The visualized pancreas is normal. The aorta and inferior vena cava are normal caliber. The appearance of the liver suggests fatty infiltration. There is no intrahepatic bile duct dilatation. The common duct is 3.8 mm in diameter. There are tiny gallstones. The gallbladder is otherwise normal. There is no sonographic Mendez sign. The main portal vein is antegrade. The right kidney is 10.4 cm in length. No ascites. IMPRESSION: 1. Hepatic steatosis. 2. Cholelithiasis This document has been electronically signed by: Francisco Goode MD on 08/16/2025 08:19:28 Dictated By: Francisco Goode MD Signed By: <Electronically signed by Francisco Goode MD in OV> 08/16/25819 DD/ 8 TD/TT: 08/16/25818 Laserist: us [facility] External Provider IMG US PROCEDURES Edited Result - Final * XR Chest 1 View (08/16/2025 5:50 AM EST) Anatomical Region Laterality Modality Chest Radiographic Stephie ging 08/16/2025 5:50 AM EST Narrative 08/16/2025 5:53 AM EST [place] [address] XRay Report Signed Patient: Gilberto Flores MR#: [id number] : 2000 Acct:[id number] Age/Sex: 25 / F ADM Date: 08/16/25 Loc: HO.ED Attending Dr: Ordering Physician: Blanca Jones DO Date of Service: 08/16/25 Procedure(s): XR chest 1V Accession Number(s): [id number] cc: Blanca Jones DO; [facility] Reason for Exam: cp/sob CLINICAL HISTORY: cp sob 1 view chest x-ray Comparison: None provided Findings: The lungs are clear. Normal size heart. No acute fracture. IMPRESSION: 1. No acute findings. This document has been electronically signed by: Miguel Levine MD on 08/16/2025 05:50:21 Dictated By: Miguel Levine MD Signed By: <Electronically signed by Miguel Levine MD in OV> 08/16/25550 DD/ TD/TT: 08/16/2550 Laserist: Procedure Note Donotuseinterpreter, Image - 08/16/2025 [place] [address] XRay Report Signed Patient: Marlene Flores#: [id number] : 2000Acct:[id number] Age/Sex: 25 / FADM Date: 08/16/25 Loc: .ED Attending Dr: Ordering Physician: Blanca Jones DO Date of Service: 08/16/25 Procedure(s): XR chest 1V Accession Number(s): [id number] cc: Blanca Jones DO; [facility] Reason for Exam: cp/sob CLINICAL HISTORY: cp sob 1 view chest x-ray Comparison: None provided Findings: The lungs are clear. Normal size heart. No acute fracture. IMPRESSION: 1. No acute findings. This document has been electronically signed by: Miguel Levine MD on 08/16/2025 05:50:21 Dictated By: Miguel Levine MD Signed By: <Electronically signed by Miguel Levine MD in OV> 08/16/25550 DD/ TD/TT: 08/16/2550 Laserist: [facility] External Provider IMG XR PROCEDURES Final Result * hCG, Total, Quantitative (08/16/2025 3:19 AM EST) HCG Quantitative <2 mIU/mL [facility] Comment:Weeks post LMP Appro ximate hCG(Last Menstrual Period) Range (mIU/ml)3 - 4 weeks 9 - 1304 - 5 weeks 75 - 2,6005 - 6 weeks 850 - 20,8006 - 7 weeks 4000 - 100,2007 - 12 weeks 11,500 - 289,22540 - 16 weeks 18,300 - 137,78400 - 29 weeks (2nd trimester) 1,400 - 53,13695 - 41 weeks (3rd trimester) 940 - 60,000The Ruiz B- hCG assay is used for the early detection ofpregnancy; it cannot be used to diagnose any conditionunrelated to . If a B-hCG level is not supportedby the clinical evidence, results should be confirmed by analternative method (qualitative urine hCG, for example). 08/16/2025 3:19 AM EST 08/16/2025 3:24 AM EST us Generic External Data Provider LAB BLOOD ORDERAB LES Final Result Performing Organization Address [facility] Co de Phone Number [facility] [address] [place] [phone] * High Sensitivity Troponin I (08/16/2025 3:19 AM EST) Pathologist [facility] TROPONIN I HIGH SENSITIVITY <2.7 <3.5 - 17.0 ng/L [facility] Comment:The Ruiz high sens itivity Troponin-I results should beused in conjunction with other diagnostic information suchas ECG, clinical observations and information, and patientsymptoms to aid in the diagnosis of OR. 08/16/2025 3:19 AM EST 08/16/2025 3:24 AM EST us Generic External Data Provider LAB BLOOD ORDERAB LES Final Result Performing Organization Address [facility] Co de Phone Number [facility] [address] [place] [phone] * Magnesium (08/16/2025 3:19 AM EST) Magnesium 2.0 1.6 - 2.6 mg/dL [facility] 08/16/2025 3:19 AM EST 08/16/2025 3:24 AM EST us Generic External Data Provider LAB BLOOD ORDERAB LES Final Result [facility] [address] [place] [phone] * (ABNORMAL) Comprehensive Metabolic Panel (08/16/2025 3:19 AM EST) Sodium 139 135 - 145 mmol/L [facility] Potassium 4.3 3.3 - 5.1 mmol/L [facility] Comment:Slight Hemolysis.Int erpret result with caution. Chloride 111(H) 96 - 108 mmol/L [facility] Carbon Dioxide 20(L) 22 - 29 mmol/L [facility] Anion Gap 12 12 - 20 [facility] Urea Nitrogen (BUN) 12 9 - 16 mg/dL [facility] Creatinine, Serum 0.69 0.5 - 1.4 mg/dL [facility] Creatinine Clr Calc Pharmacy 111.9 [facility] Comment:Provided height and weight: 149.86 cm,75.1 kg.eGFR (calculated from the MDRD study equation) and eCrCl(calculated from the Cockcroft-Gault equation) are based ondifferent parameters and may not yield comparable results.If eCrCl result is absurd, please check patient'sheight/weight. Estimated Glomerular Filt Rate >60 [facility] Comment:Chronic Kidney Disea se: Estimated GFR < 60 mL/min/1.31m3Zvlqkz Kidney Disease: Estimated GFR < 15 mL/min/1.73m2 Glucose 107 60 - 115 mg/dL [facility] Calcium 9.4 8.4 - 10.2 mg/dL [facility] Bilirubin, Total 0.5 0.0 - 1.0 mg/dL [facility] Aspartate Amino Transferase 33(H) 5 - 31 U/L [facility] Comment:Slight Hemolysis.Int erpret result with caution. Alanine Aminotransferase 41(H) 0 - 31 U/L [facility] Total Protein 7.3 6.5 - 8.0 g/dL [facility] Albumin Level 4.7 3.5 - 5.0 g/dL [facility] Alkaline Phosphatase 104 39 - 117 U/L [facility] 08/16/2025 3:19 AM EST 08/16/2025 3:24 AM EST us Generic External Data Provider LAB BLOOD ORDERAB LES Final Result [facility] [address] [place] [phone] * COVID-19 ID NOW (Runscope) (08/16/2025 3:19 AM EST) IDNOW SERIAL# [id number] [facility] COVID-19 TEST Negative Negative [facility] COVID-19 NOTE See Note [facility] Comment: Results are for the identification of SARS-CoV2 RNA. TheSARS-CoV2 RNA is generally detectable in respiratory samplesduring the acute phase of infection. Positive results areindicative of the presence of SARS-CoV-2 RNA; clinicalcorrelation with patient history and other diagnosticinformation is necessary to determine patient infectionstatus. Positive results do not rule out bacterial infectionor co- infection with other viruses.Testing facilities within the [facility] and itsterritories are required to report all positive results tothe appropriate public health authorities.Negative results should be treated as presumptive and, ifinconsistent with clinical signs and symptoms or necessaryfor patient management, should be tested with differentauthorized or cleared molecular tests. Negative results donot preclude SARS-CoV2 RNA infection and should not be usedas the sole basis for patient management decisions. Negativeresults should be considered in the context of a patient'srecent exposures, history and the presence of clinical signsand symptoms consistent with COVID-19.This test has been authorized by the FDA under an EmergencyUse Authorization (EUA) for use by authorized laboratories.Testing performed on the Ruiz ID NOW utilizing NAAT. 08/16/2025 3:19 AM EST 08/16/2025 3:30 AM EST Generic External Data Provider LAB MOLECULAR LATOYA GNOSTICS ORDERABLES Final Result Performing Organization Address [facility]/ZIP Co de Phone Number [facility] [address] [place] [phone] * Influenza A B2 ID NOW (Ruiz) (08/16/2025 3:19 AM EST) Pathologist [facility] IDNOW SERIAL# [id number] [facility] Influenza A Negative Negative [facility] Influenza B2 Negative Negative [facility] Influenza A B2 Note See Note [facility] Comment:The Ruiz ID NOW In fluenza A B2 test is used for thequalitative detection of influenza A and B from patientswith signs and symptoms of respiratory infection.Negative results do not preclude influenza virus infectionand should not be used as the sole basis for diagnosis,treatment or other patient management decisions.There is a risk of false negative results due to thepresence of variants in the viral targets of the assay, lowlevels of virus in the specimen and co- infection withRespiratory Syncytial Virus. 08/16/2025 3:19 AM EST 08/16/2025 3:30 AM EST Generic External Data Provider LAB MICROBIOLOGY - GENERAL ORDERABLES Final Result Performing Organization Address [facility] Co de Phone Number [facility] [address] [place] [phone] * (ABNORMAL) CBC auto differential (08/16/2025 3:19 AM EST) White Blood Count 7.9 4.8 - 10.8 X10*3/uL [facility] Red Blood Count 4.78 4.20 - 5.50 X10*6/uL [facility] Hemoglobin 12.7 12.0 - 16.0 g/dl [facility] Hematocrit 38.4 37.0 - 47.0 % [facility] Mean Corpuscular Volume 80.3 80.0 - 98.0 fL [facility] Mean Corpuscular Hemoglobin 26.6(L) 27.0 - 33.0 pg [facility] Mean Corpuscular HGB Conc 33.1 31.0 - 35.0 g/dl [facility] Red Cell Distribution Width 12.9 11.0 - 16.0 % [facility] Platelet Count 370 160 - 400 X10*3/uL [facility] Mean Platelet Volume 9.5 9.4 - 12.3 fL [facility] Neutrophils Percent Auto 57.6 45 - 73 % [facility] Imm Gran Pct Auto 0.3 0.0 - 0.4 % [facility] Lymphocytes Percent Auto 34.1 20 - 40 % [facility] Monocytes Percent Auto 5.6 2 - 11 % [facility] Eosinophils Percent Auto 1.9 0 - 4 % [facility] Basophils Percent Auto 0.5 0 - 2 % [facility] NRBC Pct Auto 0.0 0.0 - 0.2 /100WBC [facility] Neutrophils Absolute Auto 4.6 2.0 - 8.3 x10*3/uL [facility] Imm Gran Abs Auto 0.02 0.00 - 0.03 X10*3/uL [facility] Lymphocytes Absolute Auto 2.7 1.2 - 4.9 X10*3/uL [facility] Monocytes Absolute Auto 0.4 0.1 - 1.2 X10*3/uL [facility] Eosinophils Absolute Auto 0.2 0.0 - 0.4 X10*3/uL [facility] Basophils Absolute Auto 0.0 0.0 - 0.2 X10*3/uL [facility] NRBC Abs Auto 0.000 0.0 - 0.012 X10*3/uL [facility] 08/16/2025 3:19 AM EST 08/16/2025 3:24 AM EST us Generic External Data Provider LAB BLOOD ORDERAB LES Final Result [facility] [address] [place] [phone] documented in this encounter Visit Diagnoses Not on filedocumented in this encounter Additional Health Concerns Assessment Noted Time PHQ-9 Depression Total Score: 0 07/08/20 25 11:48 AM EDT documented as of this encounter Care Teams 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
--- OUTSIDE RECORDS SUMMARY | 2025-08-19 21:21 | XMS_ITS | Clinical Summary ---
Author Organization [employer] Address [address] [facility] [address] [place] [address] Care Team Providers Care [employer] Name Role Phone Ewa Cade [facility] Primary Care Provider [phone] Allergies No known active allergies Medications * [...] Data 07/08/2025 11:30 AM EDT Office Visit [facility] [address] [place] [phone] [facility] Gestational hypertension without significant proteinuria, (Primary Dx); [...] Description 09/25/2025 11:00 AM EST Office Visit [facility] [address] [place] [address] Porter, Yoana, OD [address] [place] [address] 09/30/2025 10:30 AM EST Office Visit [facility] [address] [place] [address] [place], [place], [facility] [address] [place] [address] Health Maintenance Due Date Last Done Comments [...] Screening 02/07/2024 02/06/2023 Chlamydia and Gonorrhea Screening 12/08/2025 12/08/2024, 12/08/2024, 12/08/2024, Additional history exists Depression Screening 07/08/2026 07/08/2025, [...] 1 VIEW Routine 08/16/2025 5:50 AM EST HCG, TOTAL, QN Routine 08/16/2025 3:19 AM EST HIGH SENSITIVITY TROPONIN I Routine 08/16/2025 3:19 AM EST MAGNESIUM Routine 08/16/2025 3:19 AM EST COMPREHENSIVE METABOLIC PANEL Routine 08/16/2025 3:19 AM EST COVID-19 ID NOW (RUIZ) Routine 08/16/2025 3:19 AM EST CBC WITH AUTO DIFFERENTIAL Routine 08/16/2025 3:19 AM EST INFLUENZA A B2 ID NOW (RUIZ) Routine 08/16/2025 3:19 AM EST from Last 3 Months Results * US Abdomen Limited (08/16/2025 8:19 AM EST) Anatomical Region Laterality Modality Abdomen Ultrasound 08/16/2025 8:19 AM EST Narrative 08/16/2025 8:21 AM EST [place] [address] Ultrasound Report Signed Patient: Gilberto Flores MR#: [id number] : 2000 Acct:[id number] Age/Sex: 25 / F ADM Date: 08/16/25 Loc: HO.ED Attending Dr: Ordering Physician: Blanca Jones DO Date of Service: 08/16/25 Procedure(s): US abdomen limited Accession Number(s): [id number] cc: Blanca Jones DO; [facility] Reason for Exam: RUQ pain eval [...] in OV> 08/16/25819 DD/ 8 TD/TT: 08/16/25818 Med Care Manager: Procedure Note Donotuseinterpreter, Image - 08/16/2025 [place] [address] Ultrasound Report Signed Patient: Marlene Flores#: [id number] : 2000Acct:[id number] Age/Sex: Date: 08/16/25 Loc: HO.ED Attending Dr: Ordering Physician: Blanca Jones DO Date of Service: 08/16/25 Procedure(s): US abdomen limited Accession Number(s): [id number] cc: Blanca Jones DO; [facility] Reason for Exam: RUQ pain eval [...] in OV> 08/16/25819 DD/ 8 TD/TT: 08/16/25818 Med Care Manager: us [facility] External Provider IMG US PROCEDURES Edited Result - Final * XR Chest 1 View (08/16/2025 5:50 AM EST) Anatomical Region Laterality Modality Chest Radiographic Stephie ging 08/16/2025 5:50 AM EST Narrative 08/16/2025 5:53 AM EST [address] [address] XRay Report Signed Patient: Gilberto lFores MR#: [id number] : 2000 Acct:[id number] Age/Sex: 25 / F ADM Date: 08/16/25 Loc: HO.ED Attending Dr: Ordering Physician: Blanca Jones DO Date of Service: 08/16/25 Procedure(s): XR chest 1V Accession Number(s): [id number] cc: Blanca Jones DO; [facility] Reason for Exam: cp/sob CLINICAL HISTORY: cp sob 1 view chest x-ray Comparison: None provided Findings: The lungs are clear. Normal size heart. No acute fracture. IMPRESSION: 1. No acute findings. This document has been electronically signed by: Miguel Levine MD on 08/16/2025 05:50:21 Dictated By: Miguel Levine MD Signed By: <Electronically signed by Miguel Levine MD in OV> 08/16/25 0551 DD/ 0550 TD/TT: 08/16/25 0550 Med Care Manager: Procedure Note Donotuseinterpreter, Image - 08/16/[address] [address] XRay Report Signed Patient: Serg FloresR#: [id number] : 2000Acct:[id number] Age/Sex: 25 / FADM Date: 08/16/25 Loc: .ED Attending Dr: Ordering Physician: Blanca Jones DO Date of Service: 08/16/25 Procedure(s): XR chest 1V Accession Number(s): [id number] cc: Blanca Jones DO; [facility] Reason for Exam: cp/sob CLINICAL HISTORY: cp sob 1 view chest x-ray Comparison: None provided Findings: The lungs are clear. Normal size heart. No acute fracture. IMPRESSION: 1. No acute findings. This document has been electronically signed by: Miguel Levine MD on 08/16/2025 05:50:21 Dictated By: Miguel Levine MD Signed By: <Electronically signed by Miguel Levine MD in OV> 08/16/25 0551 DD/ TD/TT: 08/16/2550 Med Care Manager: [facility] External Provider IMG XR PROCEDURES Final Result * Influenza A B2 ID NOW (Ruiz) (08/16/2025 3:19 AM EST) IDNOW SERIAL# [id number] [facility] Influenza A Negative Negative [facility] Influenza B2 Negative Negative [facility] Influenza A B2 Note See Note [facility] Comment:The Ruiz ID NOW In [...] LAB MICROBIOLOGY - GENERAL ORDERABLES Final Result [facility] [address] [place] [address] [phone] * COVID-19 ID NOW (RUIZ) (08/16/2025 3:19 AM EST) IDNOW SERIAL# [id number] [facility] COVID-19 TEST Negative Negative [facility] COVID-19 NOTE See Note [facility] Comment: Results are for the identification of SARS-CoV2 RNA. TheSARS-CoV2 RNA is generally detectable in respiratory samplesduring the acute phase of infection. Positive results areindicative of the presence of SARS-CoV-2 RNA; clinicalcorrelation with patient history and other diagnosticinformation is necessary to determine patient infectionstatus. Positive results do not rule out bacterial infectionor co- infection with other viruses.Testing facilities within the [facility] and [facility] are required to report all positive results [...] use by authorized laboratories.Testing performed on the Piqniq ID NOW utilizing NAAT. 08/16/2025 3:19 AM EST 08/16/2025 3:30 AM EST us [employer] External Data Provider LAB MOLECULAR LATOYA GNOSTICS ORDERABLES Final Result [facility] [address] [place] [phone] * High Sensitivity Troponin I (08/16/2025 3:19 AM EST) TROPONIN I HIGH SENSITIVITY <2.7 <3.5 - 17.0 ng/L [facility] Comment:The Ruiz high sens itivity Troponin-I results should beused in conjunction with other diagnostic information suchas ECG, clinical observations and information, and patientsymptoms to aid in the diagnosis of OK. 08/16/2025 3:19 AM EST 08/16/2025 3:24 AM EST us [employer] External Data Provider LAB BLOOD ORDERAB LES Final Result [facility] [address] [place], [place] [phone] * (ABNORMAL) CBC auto differential (08/16/2025 3:19 AM EST) White Blood Count 7.9 4.8 - 10.8 X10*3/uL [facility] Red Blood Count 4.78 4.20 - 5.50 X10*6/uL [facility] Hemoglobin 12.7 12.0 - 16.0 g/dl [facility] Hematocrit 38.4 37.0 - 47.0 % [facility] Mean Corpuscular Volume 80.3 80.0 - 98.0 fL [facility] Mean Corpuscular Hemoglobin 26.6(L) 27.0 - 33.0 pg [facility] Mean Corpuscular HGB Conc 33.1 31.0 - 35.0 g/dl [facility] Red Cell Distribution Width 12.9 11.0 - 16.0 % [facility] Platelet Count 370 160 - 400 X10*3/uL [facility] Mean Platelet Volume 9.5 9.4 - 12.3 fL [facility] Neutrophils Percent Auto 57.6 45 - 73 % [facility] Imm Gran Pct Auto 0.3 0.0 - 0.4 % [facility] Lymphocytes Percent Auto 34.1 20 - 40 % [facility] Monocytes Percent Auto 5.6 2 - 11 % [facility] Eosinophils Percent Auto 1.9 0 - 4 % [facility] Basophils Percent Auto 0.5 0 - 2 % [facility] NRBC Pct Auto 0.0 0.0 - 0.2 /100WBC [facility] Neutrophils Absolute Auto 4.6 2.0 - 8.3 x10*3/uL [facility] Imm Gran Abs Auto 0.02 0.00 - 0.03 X10*3/uL [facility] Lymphocytes Absolute Auto 2.7 1.2 - 4.9 X10*3/uL [facility] Monocytes Absolute Auto 0.4 0.1 - 1.2 X10*3/uL [facility] Eosinophils Absolute Auto 0.2 0.0 - 0.4 X10*3/uL [facility] Basophils Absolute Auto 0.0 0.0 - 0.2 X10*3/uL [facility] NRBC Abs Auto 0.000 0.0 - 0.012 X10*3/uL [facility] 08/16/2025 3:19 AM EST 08/16/2025 3:24 AM EST Generic External Data Provider LAB BLOOD ORDERAB LES Final Result Performing Organization Address [facility] de Phone Number [facility] [address] [place] [phone] * hCG, Total, Quantitative (08/16/2025 3:19 AM EST) HCG Quantitative <2 mIU/mL [facility] Comment:Weeks post LMP Appro ximate hCG(Last Menstrual Period) Range (mIU/ml)3 - 4 weeks 9 - 1304 - 5 weeks 75 - 2,6005 - 6 weeks 850 - 20,8006 - 7 weeks 4000 - 100,2007 - 12 weeks 11,500 - 289,72165 - 16 weeks 18,300 - 137,93731 - 29 weeks (2nd trimester) 1,400 - 53,00514 - 41 weeks (3rd trimester) 940 - [...] ORDERAB LES Final Result Performing Organization Address [facility]/ZIP Co de Phone Number [facility] [address] [place] [phone] * Magnesium (08/16/2025 3:19 AM EST) Magnesium 2.0 1.6 - 2.6 mg/dL [facility] 08/16/2025 3:19 AM EST 08/16/2025 3:24 AM EST us Generic External Data Provider LAB BLOOD ORDERAB LES Final Result [facility] [address] [place] [phone] * (ABNORMAL) Comprehensive Metabolic Panel (08/16/2025 3:19 AM EST) Sodium 139 135 - 145 mmol/L [facility] Potassium 4.3 3.3 - 5.1 mmol/L [facility] Comment:Slight Hemolysis.Int erpret result with caution. Chloride 111(H) 96 - 108 mmol/L [facility] Carbon Dioxide 20(L) 22 - 29 mmol/L [facility] Anion Gap 12 12 - 20 [facility] Urea Nitrogen (BUN) 12 9 - 16 mg/dL [facility] Creatinine, Serum 0.69 0.5 - 1.4 mg/dL [facility] Creatinine Clr Calc Pharmacy 111.9 [facility] Comment:Provided height and weight: 149.86 cm,75.1 kg.eGFR (calculated from the MDRD study equation) and eCrCl(calculated from the Cockcroft-Gault equation) are based ondifferent parameters and may not yield comparable results.If eCrCl result is absurd, please check patient'sheight/weight. Estimated Glomerular Filt Rate >60 [facility] Comment:Chronic Kidney Disea se: Estimated GFR < 60 mL/min/1.04m8Pkcora Kidney Disease: Estimated GFR < 15 mL/min/1.73m2 Glucose 107 60 - 115 mg/dL [facility] Calcium 9.4 8.4 - 10.2 mg/dL [facility] Bilirubin, Total 0.5 0.0 - 1.0 mg/dL [facility] Aspartate Amino Transferase 33(H) 5 - 31 U/L [facility] Comment:Slight Hemolysis.Int erpret result with caution. 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
== END 2025-08-19 14:07 | disposition home or self-care (01) ==
LOC: HO.HGS 13:49
PROVIDERS: PCP Registered Nurse; Visit Provider Surgery
DX: K80.20 Calculus of gallbladder without cholecystitis without obstruction (principal)
CPT/HCPCS: 99203

== ENCOUNTER → 2025-08-19 13:48 | Outpatient (BNVA) | payer MEDICAID, SELFPAY | PROVIDERS: PCP Registered Nurse; Visit Provider Surgery | DX: K80.20 Calculus of gallbladder without cholecystitis without obstruction (principal) | CPT/HCPCS: 99202 ==

== ENCOUNTER 2025-08-20 21:35 | Inpatient (IN) | payer MEDICAID, SELFPAY ==
--- NOTE | ~2025-08-20 | CT_ITS ---
CLINICAL HISTORY: biliary obstruction, LFTs up, known stones CT abdomen and pelvis with contrast Comparison: None provided Findings: The lung bases are clear. Abdominal solid organs without focal lesions or abnormal enhancement. The adrenal glands are nonenlarged. The gallbladder is distended. However, there no evidence of gallbladder wall thickening or pericholecystic fluid. There is mild diffuse intrahepatic biliary dilatation. Tiny gallstones are noted within the gallbladder lumen. CBD not significantly dilated. The stomach and bowel loops are nondistended. There are no focal colonic lesions or pneumatosis. There is no mesenteric inflammation. The appendix is normal. No free fluid, free air or collections in the peritoneal cavity No aortic dissection or aneurysm. No abdominopelvic lymphadenopathy. The bladder is normal. There is a nearly 3 cm right-sided adnexal cyst. Smaller left-sided adnexal cyst also noted. No pelvic free fluid. There is no acute soft tissue or skeletal abnormality in the abdomen or pelvis. IMPRESSION: Distended gallbladder. Tiny gallstones within the gallbladder lumen. There is mild diffuse intrahepatic biliary dilatation. Recommend further evaluation with right upper quadrant ultrasound. Small right-sided adnexal cyst. The examination is otherwise unremarkable. This document has been electronically signed by: Lamin Beaver MD on 08/21/2025 04:06:18
--- NOTE | ~2025-08-20 | FL_ITS ---
EXAMINATION: XR FLUOROSCOPY WITH IMAGES CLINICAL INFORMATION: ERCP COMPARISON: MRI 08/21/2025 TECHNIQUE: Fluoroscopy time: 2.40 minutes DAP: 14 mGy FINDINGS: Fluoroscopy provided for ERCP procedure. There is contrast opacifying the CBD, intrahepatic bile ducts , and the gallbladder. No radiologist present. FL/FL guidance in OR IMPRESSION: Fluoroscopy provided for procedure. See procedure report for details. Electronically signed by: Clark Mcgee MD 08/24/2025 10:04 AM JACKI
--- NOTE | ~2025-08-20 | MR_ITS ---
EXAMINATION: MRCP HISTORY: Biliary obstruction COMPARISON: Correlation is made with abdominal CT and ultrasound examinations dated 08/16/2025. TECHNIQUE: Axial gradient echo in and out of phase T1, axial T2 and fat suppressed T2, and coronal haste T2 with fat saturation images were obtained through the abdomen. 3D MRCP Reconstructed images and thick slab imaging of the biliary tree were obtained. FINDINGS: There is no significant signal loss within the liver on opposed phase imaging to suggest steatosis. There is no significant intrahepatic biliary ductal dilatation. The common bile duct is normal in caliber. No intraluminal filling defects are identified to suggest choledocholithiasis. Multiple tiny calculi are seen in the gallbladder. There is a small amount of pericholecystic fluid. The spleen, pancreas, adrenals, and kidneys are unremarkable. No retroperitoneal lymphadenopathy or ascites is identified in the upper abdomen. The visualized bones demonstrate normal marrow signal intensity. Incidental note is made of a 2.9 cm right ovarian cyst versus dominant follicle. MR/MR MRCP IMPRESSION: 1. Cholelithiasis and a small amount of pericholecystic fluid. No evidence of choledocholithiasis. 2. 2.9 cm right ovarian cyst versus dominant follicle. Electronically signed by: Trey Alexandra MD 08/21/2025 12:57 PM [facility]
[2025-08-20 21:48] VITALS: BP 139/84; PULSE 88; RESP 18; TEMP 36.7; O2SAT 98; BMI 31.7
[2025-08-20 22:17] LABS: MANUAL DIFF FLAG NO
[2025-08-20 22:20] LABS: Hematocrit 39.2 % (37.0-47.0); Hemoglobin 13.3 g/dl (12.0-16.0); Imm Gran Abs Auto 0.01 X10*3/uL (0.00-0.03); Imm Gran Pct Auto 0.1 % (0.0-0.4); Lymphocytes Absolute Auto 1.8 X10*3/uL (1.2-4.9); Mean Corpuscular HGB Conc 33.9 g/dl (31.0-35.0); Mean Corpuscular Hemoglobin 27.0 pg (27.0-33.0); Mean Corpuscular Volume 79.7 fL (80.0-98.0); NRBC Abs Auto 0.000 X10*3/uL (0.0-0.012); NRBC Pct Auto 0.0 /100WBC (0.0-0.2); Platelet Count 367 X10*3/uL (160-400); Red Blood Count 4.92 X10*6/uL (4.20-5.50); White Blood Count 7.5 X10*3/uL (4.8-10.8)
[2025-08-20 22:42] LABS: Alanine Aminotransferase 225 U/L (0-31); Albumin Level 4.8 g/dL (3.5-5.0); Alkaline Phosphatase 116 U/L (39-117); Anion Gap 10 (12-20); Aspartate Amino Transferase 217 U/L (5-31); Blood Urea Nitrogen 7 mg/dL (9-16); Calcium 9.4 mg/dL (8.4-10.2); Carbon Dioxide 22 mmol/L (22-29); Chloride 111 mmol/L (96-108); Creatinine Clr Calc Pharmacy 104.3; Estimated Glomerular Filt Rate > 60; Lipase 25 U/L (8-78); Potassium 3.8 mmol/L (3.3-5.1); Sodium 139 mmol/L (135-145); Total Protein 7.5 g/dL (6.5-8.0)
[2025-08-21] VITALS (11 sets, daily range): BP systolic 114–141; BP diastolic 72–86; PULSE 60–98; RESP 14–18; TEMP 36.1–37.2; O2SAT 98–100
--- OUTSIDE RECORDS SUMMARY | 2025-08-21 01:42 | XMS_ITS | Clinical Summary ---
Author Organization [employer] Address [address] [facility] 7t [place] [address] Care Team Providers Care Work Station Support Specialist Name Role Phone Ewa Cade [facility] Primary Care Provider [phone] Allergies No known active allergies Medications * [...] Data 07/08/2025 11:30 AM EDT Office Visit [facility] [address] [place] [phone] [facility] Gestational hypertension without significant proteinuria, (Primary [...] Description 09/25/2025 11:00 AM EST Office Visit [facility]OM[facility] [address] [place] [address] Porter, Yoana, OD [address] [place] [address] 09/30/2025 10:30 AM EST Office Visit [facility] [address] [place] [address] [place], [place], [facility] [address] [place] [address] Health Maintenance Due Date Last Done Comments [...] AM EST Narrative 08/16/2025 8:21 AM EST [place] [address] Ultrasound Report Signed Patient: Gilberto Flores MR#: [id number] : 2000 Acct:[id number] Age/Sex: 25 / F ADM Date: 08/16/25 Loc: HO.ED Attending Dr: Ordering Physician: Blanca Jones DO Date of Service: 08/16/25 Procedure(s): US abdomen limited Accession Number(s): [id number] cc: Blanca Jones DO; [facility] Reason for Exam: RUQ pain [...] in OV> 08/16/25819 DD/ 8 TD/TT: 08/16/25818 Therapeutic Massage Technician: Procedure Note Donotuseinterpreter, Image - 08/16/2025 [place] [address] Ultrasound Report Signed Patient: Marlene Flores#: [id number] : 2000Acct:[id number] Age/Sex: Date: 08/16/25 Loc: HO.ED Attending Dr: Ordering Physician: Blanca Jones DO Date of Service: 08/16/25 Procedure(s): US abdomen limited Accession Number(s): [id number] cc: Blanca Jones DO; [facility] Reason for Exam: RUQ pain [...] in OV> 08/16/25819 DD/ 8 TD/TT: 08/16/25818 Therapeutic Massage Technician: us [facility] External Provider IMG US PROCEDURES Edited Result - Final * XR Chest 1 View (08/16/2025 5:50 AM EST) Anatomical Region Laterality Modality Chest Radiographic Stephie ging 08/16/2025 5:50 AM EST Narrative 08/16/2025 5:53 AM EST [address] [address] XRay Report Signed Patient: Gilberto Flores MR#: [id number] : 2000 Acct:[id number] Age/Sex: 25 / F ADM Date: 08/16/25 Loc: HO.ED Attending Dr: Ordering Physician: Blanca Jones DO Date of Service: 08/16/25 Procedure(s): XR chest 1V Accession Number(s): [id number] cc: Blanca Jones DO; [facility] Reason for Exam: cp/sob CLINICAL [...] 08/16/25 0551 DD/ 0550 TD/TT: 08/16/25 0550 Therapeutic Massage Technician: Procedure Note Donotuseinterpreter, Image - 08/16/[address] [address] XRay Report Signed Patient: Serg FloresR#: [id number] : 2000Acct:[id number] Age/Sex: 25 / FADM Date: 08/16/25 Loc: .ED Attending Dr: Ordering Physician: Blanca Jones DO Date of Service: 08/16/25 Procedure(s): XR chest 1V Accession Number(s): [id number] cc: Blanca Jones DO; [facility] Reason for Exam: cp/sob CLINICAL HISTORY: cp sob 1 view chest x-ray Comparison: None provided Findings: The lungs are clear. Normal size heart. No acute fracture. IMPRESSION: 1. No acute findings. This document has been electronically signed by: Miguel Levnie MD on 08/16/2025 05:50:21 Dictated By: Miguel Levine MD Signed By: <Electronically signed by Miguel Levine MD in OV> 08/16/25 0551 DD/ TD/TT: 08/16/2550 Therapeutic Massage Technician: [facility] External Provider IMG XR PROCEDURES Final Result * Influenza A B2 ID NOW (Ruiz) (08/16/2025 3:19 AM EST) IDNOW SERIAL# [id number] [facility] Influenza A Negative Negative [facility] Influenza B2 Negative Negative [facility] Influenza A B2 Note See Note [facility] Comment:The Ruiz ID NOW In [...] LAB MICROBIOLOGY - GENERAL ORDERABLES Final Result [facility] [address] [place] [address] [phone] * COVID-19 ID NOW (RUIZ) (08/16/2025 3:19 AM EST) IDNOW SERIAL# [id number] [facility] COVID-19 TEST Negative Negative [facility] COVID-19 NOTE See Note [facility] Comment: Results are for the identification of SARS-CoV2 RNA. TheSARS-CoV2 RNA is generally detectable in respiratory samplesduring the acute phase of infection. Positive results areindicative of the presence of SARS-CoV-2 RNA; clinicalcorrelation with patient history and other diagnosticinformation is necessary to determine patient infectionstatus. Positive results do not rule out bacterial infectionor co- infection with other viruses.Testing facilities within the [facility] and [facility] are required to report all [...] use by authorized laboratories.Testing performed on the [facility] ID NOW utilizing NAAT. 08/16/2025 3:19 AM EST 08/16/2025 3:30 AM EST us [facility] External Data Provider LAB MOLECULAR LATOYA GNOSTICS ORDERABLES Final Result [facility] [address] [place] [phone] * High Sensitivity Troponin I (08/16/2025 3:19 AM EST) TROPONIN I HIGH SENSITIVITY <2.7 <3.5 - 17.0 ng/L [facility] Comment:The Ruiz high sens itivity Troponin-I results should beused in conjunction with other diagnostic information suchas ECG, clinical observations and information, and patientsymptoms to aid in the diagnosis of NM. 08/16/2025 3:19 AM EST 08/16/2025 3:24 AM EST us [facility] External Data Provider LAB BLOOD ORDERAB LES Final Result [facility] [address], [place] [phone] * (ABNORMAL) CBC auto differential (08/16/2025 3:19 AM EST) White Blood Count 7.9 4.8 - 10.8 X10*3/uL [facility] Red Blood Count 4.78 4.20 - 5.50 X10*6/uL [facility] Hemoglobin 12.7 12.0 - 16.0 g/dl [facility] Hematocrit 38.4 37.0 - 47.0 % [facility] Mean Corpuscular Volume 80.3 80.0 - 98.0 fL [facility] Mean Corpuscular Hemoglobin 26.6(L) 27.0 - 33.0 pg [facility] Mean Corpuscular HGB Conc 33.1 31.0 - 35.0 g/dl [facility] Red Cell Distribution Width 12.9 11.0 - 16.0 % [facility] Platelet Count 370 160 - 400 X10*3/uL [facility] Mean Platelet Volume 9.5 9.4 - 12.3 fL [facility] Neutrophils Percent Auto 57.6 45 - 73 % [facility] Imm Gran Pct Auto 0.3 0.0 - 0.4 % [facility] Lymphocytes Percent Auto 34.1 20 - 40 % [facility] Monocytes Percent Auto 5.6 2 - 11 % [facility] Eosinophils Percent Auto 1.9 0 - 4 % [facility] Basophils Percent Auto 0.5 0 - 2 % [facility] NRBC Pct Auto 0.0 0.0 - 0.2 /100WBC [facility] Neutrophils Absolute Auto 4.6 2.0 - 8.3 x10*3/uL [facility] Imm Gran Abs Auto 0.02 0.00 - 0.03 X10*3/uL [facility] Lymphocytes Absolute Auto 2.7 1.2 - 4.9 X10*3/uL [facility] Monocytes Absolute Auto 0.4 0.1 - 1.2 X10*3/uL [facility] Eosinophils Absolute Auto 0.2 0.0 - 0.4 X10*3/uL [facility] Basophils Absolute Auto 0.0 0.0 - 0.2 X10*3/uL [facility] NRBC Abs Auto 0.000 0.0 - 0.012 X10*3/uL [facility] 08/16/2025 3:19 AM EST 08/16/2025 3:24 AM EST Generic External Data Provider LAB BLOOD ORDERAB LES Final Result Performing Organization Address [facility] de Phone Number [facility] [address] [place] [phone] * hCG, Total, Quantitative (08/16/2025 3:19 AM EST) HCG Quantitative <2 mIU/mL [facility] Comment:Weeks post LMP Appro ximate hCG(Last Menstrual Period) Range (mIU/ml)3 - 4 weeks 9 - 1304 - 5 weeks 75 - 2,6005 - 6 weeks 850 - 20,8006 - 7 weeks 4000 - 100,2007 - 12 weeks 11,500 - 289,71900 - 16 weeks 18,300 - 137,39959 - 29 weeks (2nd trimester) 1,400 - 53,56250 - 41 weeks (3rd trimester) 940 - [...] ORDERAB LES Final Result Performing Organization Address [facility]/ZIP Co de Phone Number [facility] [address] [place] [phone] * Magnesium (08/16/2025 3:19 AM EST) Magnesium 2.0 1.6 - 2.6 mg/dL [facility] 08/16/2025 3:19 AM EST 08/16/2025 3:24 AM EST us Generic External Data Provider LAB BLOOD ORDERAB LES Final Result [facility] [address] [place] [phone] * (ABNORMAL) Comprehensive Metabolic Panel (08/16/2025 3:19 AM EST) Sodium 139 135 - 145 mmol/L [facility] Potassium 4.3 3.3 - 5.1 mmol/L [facility] Comment:Slight Hemolysis.Int erpret result with caution. Chloride 111(H) 96 - 108 mmol/L [facility] Carbon Dioxide 20(L) 22 - 29 mmol/L [facility] Anion Gap 12 12 - 20 [facility] Urea Nitrogen (BUN) 12 9 - 16 mg/dL [facility] Creatinine, Serum 0.69 0.5 - 1.4 mg/dL [facility] Creatinine Clr Calc Pharmacy 111.9 [facility] Comment:Provided height and weight: 149.86 cm,75.1 kg.eGFR (calculated from the MDRD study equation) and eCrCl(calculated from the Cockcroft-Gault equation) are based ondifferent parameters and may not yield comparable results.If eCrCl result is absurd, please check patient'sheight/weight. Estimated Glomerular Filt Rate >60 [facility] Comment:Chronic Kidney Disea se: Estimated GFR < 60 mL/min/1.10t5Hyroui Kidney Disease: Estimated GFR < 15 mL/min/1.73m2 Glucose 107 60 - 115 mg/dL [facility] Calcium 9.4 8.4 - 10.2 mg/dL [facility] Bilirubin, Total 0.5 0.0 - 1.0 mg/dL [facility] Aspartate Amino Transferase 33(H) 5 - 31 U/L [facility] Comment:Slight Hemolysis.Int erpret result with caution. Alanine Aminotransferase 41(H) 0 - 31 U/L [facility] Total Protein 7.3 6.5 - 8.0 g/dL [facility] Albumin Level 4.7 3.5 - 5.0 g/dL [facility] Alkaline Phosphatase 104 39 - 117 U/L [facility] 08/16/2025 3:19 AM EST 08/16/2025 3:24 AM EST us Generic External Data Provider LAB BLOOD ORDERAB LES Final Result Performing Organization Address City/State/[facility] Co de Phone Number [facility] [address] [place] [phone] from Last 3 Months Insurance [facility] C[employer] Care Teams Work Station Support Specialist Relationship Specialty Start Date End Date [place], TELEHEALTH DIRECTOR [address] [place] [phone] PCP - General Family Medicine 03/07/22
--- OUTSIDE RECORDS SUMMARY | 2025-08-21 01:42 | XMS_ITS | Encounter Summary ---
Author Organization [employer] Address [address] [facility] 7t [place] [address] Care Team Providers Care Aged Or Disabled Care Worker Name Role Phone Alyssia [facility] Primary Care Provider [phone] Encounter Details Date Type Department Care Team ([facility] Contact Info) Description 08/16/2025 Orders Only GENERIC [...] Description 09/25/2025 11:00 AM EST Office Visit [facility] [address] [place] [address] Porter, Yoana, OD [address] [place] [address] 09/30/2025 10:30 AM EST Office Visit [facility] [address] [place] [address] [place], Ewa, DRY CURE WORKER [address] [place] [address] documented as of this encounter Procedures Procedure Name Priority Date/Time Associated Diagnosis Comments US ABDOMEN LIMITED Routine 08/16/2025 8: 19 AM EST XR CHEST 1 VIEW Routine 08/16/2025 5:50 AM EST INFLUENZA A B2 ID NOW (momondo) Routine 08/16/2025 3:19 AM EST COVID-19 ID [...] AM EST Narrative 08/16/2025 8:21 AM EST [address] [address] Ultrasound Report Signed Patient: Gilberto Flores MR#: [id number] : 2000 Acct:[id number] Age/Sex: 25 / F ADM Date: 08/16/25 Loc: HO.ED Attending Dr: Ordering Physician: Blanca Jones DO Date of Service: 08/16/25 Procedure(s): US abdomen limited Accession Number(s): [id number] cc: Blanca Jones DO; [facility] Reason for Exam: RUQ pain eval [...] in OV> 08/16/25819 DD/ 8 TD/TT: 08/16/25818 [employer] Sales Representative: Procedure Note Donotuseinterpreter, Image - 08/16/[address] [address] Ultrasound Report Signed Patient: Serg FloresR#: [id number] : 2000Acct:[id number] Age/Sex: 25 / FADM Date: 08/16/25 Loc: HO.ED Attending Dr: Ordering Physician: Blanca Jones DO Date of Service: 08/16/25 Procedure(s): US abdomen limited Accession Number(s): [id number] cc: Blanca Jones DO; [facility] Reason for Exam: RUQ pain eval [...] in OV> 08/16/25819 DD/ 8 TD/TT: 08/16/25818 [employer] Sales Representative: us [facility] External Provider IMG US PROCEDURES Edited Result - Final * XR Chest 1 View (08/16/2025 5:50 AM EST) Anatomical Region Laterality Modality Chest Radiographic Stephie ging 08/16/2025 5:50 AM EST Narrative 08/16/2025 5:53 AM EST [place] [address] XRay Report Signed Patient: Gilberto Flores MR#: [id number] : 2000 Acct:[id number] Age/Sex: 25 / F ADM Date: 08/16/25 Loc: HO.ED Attending Dr: Ordering Physician: Blanca Jones DO Date of Service: 08/16/25 Procedure(s): XR chest 1V Accession Number(s): [id number] cc: Blanca Jones DO; [facility] Reason for Exam: cp/sob CLINICAL HISTORY: [...] MD in OV> 08/16/25550 DD/ TD/TT: 08/16/2550 [employer] Sales Representative: Procedure Note Donotuseinterpreter, Image - 08/16/2025 [place] [address] XRay Report Signed Patient: Marlene Flores#: [id number] : 2000Acct:[id number] Age/Sex: 25 / FADM Date: 08/16/25 Loc: .ED Attending Dr: Ordering Physician: Blanca Jones DO Date of Service: 08/16/25 Procedure(s): XR chest 1V Accession Number(s): [id number] cc: Blanca Jones DO; [facility] Reason for Exam: cp/sob CLINICAL HISTORY: [...] MD in OV> 08/16/25550 DD/ TD/TT: 08/16/2550 [employer] Sales Representative: [facility] External Provider IMG XR PROCEDURES Final Result * hCG, Total, Quantitative (08/16/2025 3:19 AM EST) HCG Quantitative <2 mIU/mL [facility] Comment:Weeks post LMP Appro ximate hCG(Last Menstrual Period) Range (mIU/ml)3 - 4 weeks 9 - 1304 - 5 weeks 75 - 2,6005 - 6 weeks 850 - 20,8006 - 7 weeks 4000 - 100,2007 - 12 weeks 11,500 - 289,93967 - 16 weeks 18,300 - 137,33320 - 29 weeks (2nd trimester) 1,400 - 53,08325 - 41 weeks (3rd trimester) 940 - [...] ORDERAB LES Final Result Performing Organization Address [facility] Co de Phone Number [facility] [address] [place] [phone] * High Sensitivity Troponin I (08/16/2025 3:19 AM EST) Pathologist [facility] TROPONIN I HIGH SENSITIVITY <2.7 <3.5 - 17.0 ng/L [facility] Comment:The Ruiz high sens itivity Troponin-I results should beused in conjunction with other diagnostic information suchas ECG, clinical observations and information, and patientsymptoms to aid in the diagnosis of ID. 08/16/2025 3:19 AM EST 08/16/2025 3:24 AM EST us Generic External Data Provider LAB BLOOD ORDERAB LES Final Result Performing Organization Address [facility] Co de Phone Number [facility] [address] [place] [phone] * Magnesium (08/16/2025 3:19 AM EST) Magnesium 2.0 1.6 - 2.6 mg/dL [facility] 08/16/2025 3:19 AM EST 08/16/2025 3:24 AM EST us Generic External Data Provider LAB BLOOD ORDERAB LES Final Result [facility] [address] [place] [phone] * (ABNORMAL) Comprehensive Metabolic Panel (08/16/2025 3:19 AM EST) Sodium 139 135 - 145 mmol/L [facility] Potassium 4.3 3.3 - 5.1 mmol/L [facility] Comment:Slight Hemolysis.Int erpret result with caution. Chloride 111(H) 96 - 108 mmol/L [facility] Carbon Dioxide 20(L) 22 - 29 mmol/L [facility] Anion Gap 12 12 - 20 [facility] Urea Nitrogen (BUN) 12 9 - 16 mg/dL [facility] Creatinine, Serum 0.69 0.5 - 1.4 mg/dL [facility] Creatinine Clr Calc Pharmacy 111.9 [facility] Comment:Provided height and weight: 149.86 cm,75.1 kg.eGFR (calculated from the MDRD study equation) and eCrCl(calculated from the Cockcroft-Gault equation) are based ondifferent parameters and may not yield comparable results.If eCrCl result is absurd, please check patient'sheight/weight. Estimated Glomerular Filt Rate >60 [facility] Comment:Chronic Kidney Disea se: Estimated GFR < 60 mL/min/1.27z3Nailjb Kidney Disease: Estimated GFR < 15 mL/min/1.73m2 Glucose 107 60 - 115 mg/dL [facility] Calcium 9.4 8.4 - 10.2 mg/dL [facility] Bilirubin, Total 0.5 0.0 - 1.0 mg/dL [facility] Aspartate Amino Transferase 33(H) 5 - 31 U/L [facility] Comment:Slight Hemolysis.Int erpret result with caution. Alanine Aminotransferase 41(H) 0 - 31 U/L [facility] Total Protein 7.3 6.5 - 8.0 g/dL [facility] Albumin Level 4.7 3.5 - 5.0 g/dL [facility] Alkaline Phosphatase 104 39 - 117 U/L [facility] 08/16/2025 3:19 AM EST 08/16/2025 3:24 AM EST us Generic External Data Provider LAB BLOOD ORDERAB LES Final Result [facility] [address] [place] [phone] * COVID-19 ID NOW (momondo) (08/16/2025 3:19 AM EST) IDNOW SERIAL# [id number] [facility] COVID-19 TEST Negative Negative [facility] COVID-19 NOTE See Note [facility] Comment: Results are for the identification of SARS-CoV2 RNA. TheSARS-CoV2 RNA is generally detectable in respiratory samplesduring the acute phase of infection. Positive results areindicative of the presence of SARS-CoV-2 RNA; clinicalcorrelation with patient history and other diagnosticinformation is necessary to determine patient infectionstatus. Positive results do not rule out bacterial infectionor co- infection with other viruses.Testing facilities within the [facility] and itsterritories are required to report all [...] GNOSTICS ORDERABLES Final Result Performing Organization Address [facility]/ZIP Co de Phone Number [facility] [address] [place] [phone] * Influenza A B2 ID NOW (Ruiz) (08/16/2025 3:19 AM EST) Pathologist [facility] IDNOW SERIAL# [id number] [facility] Influenza A Negative Negative [facility] Influenza B2 Negative Negative [facility] Influenza A B2 Note See Note [facility] Comment:The Ruiz ID NOW In fluenza [...] GENERAL ORDERABLES Final Result Performing Organization Address [facility] Co de Phone Number [facility] [address] [place] [phone] * (ABNORMAL) CBC auto differential (08/16/2025 3:19 AM EST) White Blood Count 7.9 4.8 - 10.8 X10*3/uL [facility] Red Blood Count 4.78 4.20 - 5.50 X10*6/uL [facility] Hemoglobin 12.7 12.0 - 16.0 g/dl [facility] Hematocrit 38.4 37.0 - 47.0 % [facility] Mean Corpuscular Volume 80.3 80.0 - 98.0 fL [facility] Mean Corpuscular Hemoglobin 26.6(L) 27.0 - 33.0 pg [facility] Mean Corpuscular HGB Conc 33.1 31.0 - 35.0 g/dl [facility] Red Cell Distribution Width 12.9 11.0 - 16.0 % [facility] Platelet Count 370 160 - 400 X10*3/uL [facility] Mean Platelet Volume 9.5 9.4 - 12.3 fL [facility] Neutrophils Percent Auto 57.6 45 - 73 % [facility] Imm Gran Pct Auto 0.3 0.0 - 0.4 % [facility] Lymphocytes Percent Auto 34.1 20 - 40 % [facility] Monocytes Percent Auto 5.6 2 - 11 % [facility] Eosinophils Percent Auto 1.9 0 - 4 % [facility] Basophils Percent Auto 0.5 0 - 2 % [facility] NRBC Pct Auto 0.0 0.0 - 0.2 /100WBC [facility] Neutrophils Absolute Auto 4.6 2.0 - 8.3 x10*3/uL [facility] Imm Gran Abs Auto 0.02 0.00 - 0.03 X10*3/uL [facility] Lymphocytes Absolute Auto 2.7 1.2 - 4.9 X10*3/uL [facility] Monocytes Absolute Auto 0.4 0.1 - 1.2 X10*3/uL [facility] Eosinophils Absolute Auto 0.2 0.0 - 0.4 X10*3/uL [facility] Basophils Absolute Auto 0.0 0.0 - 0.2 X10*3/uL [facility] NRBC Abs Auto 0.000 0.0 - 0.012 X10*3/uL [facility] 08/16/2025 3:19 AM EST 08/16/2025 3:24 AM EST us Generic External Data Provider LAB BLOOD ORDERAB LES Final Result [facility] [address] [place] [phone] documented in this encounter Visit Diagnoses Not on filedocumented in this encounter Additional Health Concerns Assessment Noted Time PHQ-9 Depression Total Score: 0 07/08/20 25 11:48 AM EDT documented as of this encounter Care Teams Aged Or Disabled Care Worker Relationship Specialty Start Date End Date Ewa Cade FNP [address] [place] [address] PCP - General Family Medicine 03/07/22 documented as of this encounter
--- NOTE | 2025-08-21 02:03 | PC.NURSE ---
pt medicated per nov. reports 10 upper abd pain; ruq abd tenderness. pt taken to ct scan now.
[2025-08-21] MEDS: iohexoL 350 MG/ML 100 ML INFUS..BTL IV (02:05)
--- NOTE | 2025-08-21 04:10 | ED.GENADULT ---
HPI - General Adult General Chief complaint: Abdominal Pain Stated complaint: Stomach Pain Time Seen by Provider: 08/21/25 01:34 Source: patient Limitations: no limitations History of Present Illness ED Provider: Erica Tubbs PA-C HPI narrative: 25-year-old female with known cholelithiasis, presents with worsening upper abdominal pain x3 days. Patient was seen in the emergency department August 16, found to have cholelithiasis. Patient was seen by the surgical service on August 19, Dr. Paluino, it appears she is pending cholecystectomy at this time. Her pain is over the upper abdomen, is nonradiating, it becomes severe at times and is triggered by eating. Associated active nausea vomiting. Denies fever. Related Data Previous Rx's ?Medication ?Instructions ?Recorded ibuprofen 600 mg tablet 600 mg PO Q8H PRN fever or pain 08/16/25 #30 tabs ondansetron 4 mg disintegrating 4 mg PO Q8H PRN nausea and 08/16/25 tablet vomiting #10 tabs Allergies Allergy/AdvReac Type Severity Reaction Status Date / Time No Known Allergies Allergy Verified 08/20/25 21:52 [facility] Social History Social History Household Members: Family Housing: Apartment Do you presently have visiting nurse or other home services: No Alcohol intake: never Patient Tobacco Use Status: Never used Tobacco Smoked in Last 30 Days: No Use of substances other than those prescribed or required for medical reasons: No Currently Displaying Signs/Symptoms of Drug Intoxication Withdrawal: No Have you been hit, kicked, punched, or otherwise hurt by someone within the past year? If so, by whom?: No Do you feel safe in your current relationship?: No Current Relationship Is there a partner from a previous relationship who is making you feel unsafe now?: No Are you made to feel afraid or neglected: No Advance Directives: No Advance Directives Information Provided: Yes Do you have a plan to hurt others: No Plan Recently lost weight without trying: No Nutrition Risks: No Nutritional Risk Patient : No : No Poor oral hygiene: No Gender identity: Female Physical Exam ED Vital Signs: Vital Signs - 24 hr 08/20/25 21:48 08/21/25 01:59 08/21/25 07:08 Temperature 98.1 F 98.4 F 97.7 F Pulse Rate 88 72 60 Respiratory Rate 18 16 14 Blood Pressure 139/84 137/85 114/75 Pulse Oximetry 98 100 98 Oxygen Delivery Method Room Air Room Air Room Air BMI result Body Mass Index 31.7 Course Course Course Narrative: Signed out to day team pending surgical consult and final disposition Reevaluation(s) Reevaluation #1: 8:24 AM 08/21/2025 (Dr. Cipriano Montiel): patient re-evaluated, she told me that she was seen by surgeon, and was told she is going to be admitted for cholecystectomy Consultations Consultation #1: per Dr. Paulino... He relayed that the patient will be assessed momentarily Time: 04:29 Medications Administered Generic Name Dose Route Start Last Admin Trade Name Freq PRN Reason Stop Dose Admin Dextrose/Sodium Chloride 1,000 mls @ 100 mls/hr 08/21/25 08:30 08/21/25 18:24 D51/2ns IVCONT 100 mls/hr .Q10H JESUS Administration Ceftriaxone Sodium 1 gm/ 50 mls @ 100 mls/hr 08/21/25 09:00 08/21/25 09:48 Sodium Chloride IV Infused Q12H JESUS Infusion Metronidazole 500 mg in 100 mls @ 100 mls/hr 08/21/25 08:30 08/21/25 20:40 Flagyl IV 100 mls/hr Q12H JESUS Administration Sodium Chloride 3 ml 08/21/25 16:00 08/21/25 20:32 0.9 % Sodium Chloride Flush 3 Ml Syringe IVFLUSH 3 ml QSHIFT JESUS Administration Discontinued Medications Generic Name Dose Route Start Last Admin Trade Name Freq PRN Reason Stop Dose Admin Sodium Chloride 1,000 mls @ 999 mls/hr 08/21/25 01:45 08/21/25 02:55 Ns IV 08/21/25 02:45 Infused .Q1H1M JESUS Infusion Iohexol 100 ml 08/21/25 02:05 08/21/25 02:05 Iohexol 350 Mg/Ml 100 Ml Infus..Btl IV 08/21/25 02:06 85 ml ONCE ONE Administration Morphine Sulfate 4 mg 08/21/25 01:42 08/21/25 01:53 Morphine Sulfate 4 Mg/Ml Cartridge IVPUSH 08/21/25 01:43 4 mg ONCE ONE Administration Protocol Ondansetron HCl 4 mg 08/21/25 01:42 08/21/25 01:53 Ondansetron Hcl 4 Mg/2 Ml Vial IVPUSH 08/21/25 01:43 4 mg ONCE ONE Administration Medical Decision Making Medical Decision Making [facility] Narrative: 25-year-old female with known cholelithiasis, presents with worsening upper abdominal pain x3 days. Patient was seen in the emergency department August 16, found to have cholelithiasis. Patient was seen by the surgical service on August 19, Dr. Paulino, it appears she is pending cholecystectomy at this time. Her pain is over the upper abdomen, is nonradiating, it becomes severe at times and is triggered by eating. Associated active nausea vomiting. Denies fever. Problem: Known cholelithiasis History: Per patient I have considered the following differential diagnoses: Biliary colic, cholecystitis, cholangitis, gastritis/GERD, gallstone pancreatitis Plan: The patient has known gallstones, her screening labs have returned, there was an increase in her LFTs, we will fractionate the bilirubin. I will obtain a CT scan, we do not have access to ultrasound at this time. Medicating with morphine Zofran and IV fluid. I have independently reviewed the following tests: Labs: No leukocytosis, not anemic, no electrolyte abnormality, increased elevation of LFTs, T bili 1.7, AST 217, ALT 225, alk phos 116, we will fractionate the bilirubin, not CT abdomen and pelvis: The lung bases are clear. Abdominal solid organs without focal lesions or abnormal enhancement. The adrenal glands are nonenlarged. The gallbladder is distended. However, there no evidence of gallbladder wall thickening or pericholecystic fluid. There is mild diffuse intrahepatic biliary dilatation. Tiny gallstones are noted within the gallbladder lumen. CBD not significantly dilated. The stomach and bowel loops are nondistended. There are no focal colonic lesions or pneumatosis. There is no mesenteric inflammation. The appendix is normal. No free fluid, free air or collections in the peritoneal cavity No aortic dissection or aneurysm. No abdominopelvic lymphadenopathy. The bladder is normal. There is a nearly 3 cm right-sided adnexal cyst. Smaller left-sided adnexal cyst also noted. No pelvic free fluid. There is no acute soft tissue or skeletal abnormality in the abdomen or pelvis. IMPRESSION: Distended gallbladder. Tiny gallstones within the gallbladder lumen. There is mild diffuse intrahepatic biliary dilatation. Recommend further evaluation with right upper quadrant ultrasound. Small right-sided adnexal cyst. The examination is otherwise unremarkable. Lab Data 08/21/25 11:27 08/20/25 22:07 Labs: Lab Results 08/20/25 Range/Units 22:07 WBC 7.5 (4.8-10.8) X10*3/uL RBC 4.92 (4.20-5.50) X10*6/uL Hgb 13.3 (12.0-16.0) g/dl Hct 39.2 (37.0-47.0) % MCV 79.7 L (80.0-98.0) fL MCH 27.0 (27.0-33.0) pg MCHC 33.9 (31.0-35.0) g/dl RDW 12.6 (11.0-16.0) % Plt Count 367 (160-400) X10*3/uL MPV 9.3 L (9.4-12.3) fL Immature Gran % (Auto) 0.1 (0.0-0.4) % Neut % (Auto) 66.3 (45-73) % Lymph % (Auto) 23.9 (20-40) % [place] % (Auto) 7.8 (2-11) % Eos % (Auto) 1.5 (0-4) % Baso % (Auto) 0.4 (0-2) % Lymph # (Auto) 1.8 (1.2-4.9) X10*3/uL [place] # (Auto) 0.6 (0.1-1.2) X10*3/uL Eos # (Auto) 0.1 (0.0-0.4) X10*3/uL Baso # (Auto) 0.0 (0.0-0.2) X10*3/uL Abs Immat Gran (auto) 0.01 (0.00-0.03) X10*3/uL Absolute Neuts (auto) 5.0 (2.0-8.3) x10*3/uL Absolute Nucleated RBC 0.000 (0.0-0.012) X10*3/uL Nucleated RBC % (auto) 0.0 (0.0-0.2) /100WBC Sodium 139 (135-145) mmol/L Potassium 3.8 (3.3-5.1) mmol/L Chloride 111 H (96-108) mmol/L Carbon Dioxide 22 (22-29) mmol/L Anion Gap 10 L (12-20) BUN 7 L (9-16) mg/dL Creatinine 0.72 (0.5-1.4) mg/dL Estim Creat Clear Calc 104.3 Estimated GFR > 60 Random Glucose 105 (60-115) mg/dL Calcium 9.4 (8.4-10.2) mg/dL Total Bilirubin 1.7 H (0.0-1.0) mg/dL Direct Bilirubin 0.8 H (0.0-0.5) mg/dL AST 217 H (5-31) U/L ALT 225 H (0-31) U/L Alkaline Phosphatase 116 (39-117) U/L Total Protein 7.5 (6.5-8.0) g/dL Albumin 4.8 (3.5-5.0) g/dL Lipase 25 (8-78) U/L Beta HCG, Quant < 2 mIU/mL Discharge Plan Discharge Clinical Impression: Biliary colic Patient Disposition: Admitted As Inpatient Discharge Date/Time: 08/21/25 11:45
--- NOTE | 2025-08-21 08:01 | PM.HPGS ---
History of Present Illness History of Present Illness Date of Service: 08/21/25 Chief complaint: Stomach Pain Narrative: Gilberto Flores is a 25 year old female with known history of biliary colic who is scheduled for cholecystectomy presents with complaints of unremitting epigastric abdominal pain. She reports this pain isn't related to eating and came on when she was shopping yesterday. She denies any fevers or chills. Imaging remarkable for cholelithiasis with distended gallbladder. Labs unremarkable apart from a hyperbilirubinemia. The patient reports that she does not really know if her urine is dark are not. Review of Systems Review of Systems: Yes all other systems are reviewed and are negative [facility] Social History Social History (Updated 08/19/25 @ 13:59 by RASHEL Arguello) Alcohol intake: never Patient Tobacco Use Status: Never used Tobacco Smoked in Last 30 Days: No Use of substances other than those prescribed or required for medical reasons: No Advance Directives: No Advance Directives Information Provided: Yes Gender identity: Female Meds Allergies Allergy/AdvReac Type Severity Reaction Status Date / Time No Known Allergies Allergy Verified 08/20/25 21:52 Physical Exam Vital Signs: Vital Signs: Last Vital Signs Temp 97.7 F 08/21/25 07:08 Pulse 60 08/21/25 07:08 Resp 14 08/21/25 07:08 BP 114/75 08/21/25 07:08 Pulse Ox 98 08/21/25 07:08 O2 Del Method Room Air 08/21/25 07:08 BMI result Body Mass Index 31.7 Const: General: cooperative, healthy appearing, comfortable and no acute distress Nutritional Appearance: obese Orientation/consciousness: oriented to person, oriented to place and oriented to time HEENT: Head: Yes normal to inspection, Yes normocephalic and Yes atraumatic Eyes: General: appearance normal, both eyes and all related structures Pupils: Equal, round and reactive pupils present EOM: EOMs intact bilaterally Neck: Neck: Yes normal visual inspection Chest: Chest palpation & inspection: normal inspection of the chest Resp: Effort & Inspection: normal respiratory effort and able to speak in complete sentences Cardio: Rate: regular rate Rhythm: regular rhythm GI: Other: Soft somewhat obese nondistended. Vague tenderness to palpation in the epigastrium, left upper quadrant right upper quadrant and periumbilical regions. No focal tenderness that would be expected from isolated gallbladder involvement Neuro: General: oriented to person, oriented to place and oriented to time Cranial nerves: Yes CN's II-XII intact bilaterally and Yes Equal, round and reactive pupils present Results Results Labs: Short CBC 08/20/25 Range/Units 22:07 WBC 7.5 (4.8-10.8) X10*3/uL Hgb 13.3 (12.0-16.0) g/dl Hct 39.2 (37.0-47.0) % Plt Count 367 (160-400) X10*3/uL BMP 08/20/25 22:07 Sodium 139 Potassium 3.8 Chloride 111 H Carbon Dioxide 22 BUN 7 L Creatinine 0.72 Calcium 9.4 Liver Function 08/20/25 Range/Units 22:07 Total Bilirubin 1.7 H (0.0-1.0) mg/dL Direct Bilirubin 0.8 H (0.0-0.5) mg/dL AST 217 H (5-31) U/L ALT 225 H (0-31) U/L Alkaline Phosphatase 116 (39-117) U/L Albumin 4.8 (3.5-5.0) g/dL Assessment and Plan (1) Cholelithiasis: Qualifiers: Cholelithiasis location: gallbladder and bile duct Cholecystitis presence: without cholecystitis Status: Acute Plan I told the patient that I felt eventually her gallbladder would need to be removed however I also feel there is a significant chance she has stone involvement in her duct resulting in an elevated bilirubin. We will plan for admit, place on antibiotic therapy and request a GI consult for consideration of ERCP. My assessment of her condition as well as the plans for continuing care described to her in detail and she indicated that she understood and wished to proceed with the plan as it was outlined to her. Quality Stroke Does the patient have a stroke diagnosis?: No VTE Prior VTE?: No VTE Risk Level:: Surgical - low VTE Device Contraindication: N/A - Device Ordered VTE Drug Contraindication: N/A - Med Ordered Procedures Date of Service Date of Service: 08/21/25
--- NOTE | 2025-08-21 08:34 | PHA.MEDREC ---
Pharmacy Consult ? Medication Reconciliation Pharmacy has completed the medication reconciliation. Spoke with patient at bedside, she confirmed all she takes is ibuprofen for pain and ondansetron for nausea. Says she takes them as needed and took them yesterday at around 3pm.
[2025-08-21] MEDS: Dextrose 5 % and 0.45 % NaCl 1,000 ML 100 ML IVCONT ×2 (09:05→18:24)
--- NOTE | 2025-08-21 09:22 | HO.NURTONUR ---
Addendum entered by Vida Chacko RN 08/21/25 10:11: 25 year old Original Note: Patient is a 5 year old female full code who presents with episgastric pain 08/20. Patient has history of bililary colic and was scheduled for a cholecystectomy 08/31. Abdomen and Pelvis CT show cholelithiasis. Plan is to admit for GI consult for possible ERCP and IV abx therapy. Patient has a IV in right FA. Patient is AOx4, up ad emely to bathroom. D5 1/2 NS running at 100c/hr.
[2025-08-21] MEDS: metroNIDAZOLE/NS 500 MG/100 ML PIGGYBACK 100 MG IV ×2 (09:32→20:40)
--- NOTE | 2025-08-21 10:52 | P.CNGI_ITS ---
History of Present Illness Data of Consult Service Date: 08/21/25 Requesting physician: Abdelrahman Paulino Primary Care Provider: [facility] Reason for consult: ERCP for suspected CBD stone 25 YF with cholelithiasis seen at [facility] ED cloth folder machine of 08/21/25 with worsening upper abdominal pain x3 days. Patient was seen in the emergency department August 16, found to have cholelithiasis. She was seen by Dr Paulino, General Surgery on August 19, and advised to schedule a Lap Telma. Her pain is over the upper abdomen, is nonradiating, it becomes severe at times and is triggered by eating. Associated active nausea vomiting. 08/21/[address] SCAN SHOWED: Distended gallbladder. Tiny gallstones within the gallbladder lumen. There is mild diffuse intrahepatic biliary dilatation. Recommend further evaluation with right upper quadrant ultrasound. Small right-sided adnexal cyst. The examination is otherwise unremarkable. Review of Systems 2 Review of Systems: Yes all other systems are reviewed and are negative [facility] Social History Social History Household Members: Family Housing: Apartment Do you presently have visiting nurse or other home services: No Alcohol intake: never Patient Tobacco Use Status: Never used Tobacco Smoked in Last 30 Days: No Use of substances other than those prescribed or required for medical reasons: No Have you been hit, kicked, punched, or otherwise hurt by someone within the past year? If so, by whom?: No Do you feel safe in your current relationship?: No Current Relationship Is there a partner from a previous relationship who is making you feel unsafe now?: No Are you made to feel afraid or neglected: No Advance Directives: No Advance Directives Information Provided: Yes Do you have a plan to hurt others: No Plan Recently lost weight without trying: No Nutrition Risks: No Nutritional Risk Patient : No : No Poor oral hygiene: No Gender identity: Female Meds Allergies Allergy/AdvReac Type Severity Reaction Status Date / Time No Known Allergies Allergy Verified 08/20/25 21:52 Active Medications: Current Medications Acetaminophen (Acetaminophen 325 Mg Tablet) 650 mg PO Q6H PRN PRN Reason: Pain, Mild 1-3,fever,headache Hydromorphone HCl (Hydromorphone Hcl 1 Mg/Ml Syringe) 0.5 mg IVPUSH Q4H PRN; Protocol PRN Reason: Pain, Severe (Pain Scale 7-10) Dextrose/Sodium Chloride (D51/2ns) 1,000 mls @ 100 mls/hr IVCONT .Q10H [facility] Last Admin: 08/21/25 09:05 Dose: 100 mls/hr Ceftriaxone Sodium 1 gm/ (Sodium Chloride) 50 mls @ 100 mls/hr IV Q12H [facility] Last Infusion: 08/21/25 09:48 Dose: Infused Metronidazole (Flagyl) 500 mg in 100 mls @ 100 mls/hr IV Q12H [facility] Last Infusion: 08/21/25 10:41 Dose: Infused Melatonin (Melatonin 3 Mg Tablet) 6 mg PO BEDTIME PRN PRN Reason: Insomnia Ondansetron HCl (Ondansetron Hcl 4 Mg/2 Ml Vial) 4 mg IVPUSH Q8H PRN PRN Reason: Nausea and Vomiting Sodium Chloride (0.9 % Sodium Chloride Flush 3 Ml Syringe) 3 ml IVFLUSH QSHIFT [facility] Temazepam (Temazepam 15 Mg Capsule) 15 mg PO BEDTIME PRN PRN Reason: Insomnia Physical Exam 2 Vital Signs: Vital Signs: Last Vital Signs Temp 97.7 F 08/21/25 07:08 Pulse 60 08/21/25 07:08 Resp 14 08/21/25 07:08 BP 114/75 08/21/25 07:08 Pulse Ox 98 08/21/25 07:08 O2 Del Method Room Air 08/21/25 07:08 BMI result Body Mass Index 31.7 Const: General: cooperative, healthy appearing, comfortable and no acute distress Nutritional Appearance: obese Orientation/consciousness: oriented to person, oriented to place and oriented to time Limitations: no limitations HEENT: Head: Yes normal to inspection, Yes normocephalic and Yes atraumatic Ears: hearing grossly normal bilaterally Mouth: Normal oral and palatal mucosa present Eyes: General: appearance normal, both eyes and all related structures S clerae: sclerae normal Pupils: Equal, round and reactive pupils present E OM: EOMs intact bilaterally Neck: Neck: Yes normal visual inspection Chest: Chest palpation & inspection: normal inspection of the chest Resp: Effort & Inspection: normal respiratory effort and able to speak in complete sentences Auscultation: clear to auscultation bilaterally Cardio: Palpation: normal PMI Rate: regular rate Rhythm: regular rhythm Heart sounds: S1 normal heart sound present, S2 normal heart sound present and no murmurs GI: Other: Soft somewhat obese nondistended. Vague tenderness to palpation in the epigastrium, left upper quadrant right upper quadrant and periumbilical regions. No focal tenderness that would be expected from isolated gallbladder involvement Palpation (GI): Soft to palpation, nontender and No hepatosplenomegaly present Auscultation: normal bowel sounds Rectal Exam - Female: deferred Skin: General skin exam: no rashes or lesions noted Neuro: General: oriented to person, oriented to place and oriented to time Cranial nerves: Yes CN's II-XII intact bilaterally and Yes Equal, round and reactive pupils present Psych: Appearance: grossly normal Mental Status: mental status grossly normal Results Labs 08/21/25 11:27 08/20/25 22:07 Labs: Short CBC 08/20/25 Range/Units 22:07 WBC 7.5 (4.8-10.8) X10*3/uL Hgb 13.3 (12.0-16.0) g/dl Hct 39.2 (37.0-47.0) % Plt Count 367 (160-400) X10*3/uL BMP 08/20/25 22:07 Sodium 139 Potassium 3.8 Chloride 111 H Carbon Dioxide 22 BUN 7 L Creatinine 0.72 Calcium 9.4 Liver Function 08/20/25 Range/Units 22:07 Total Bilirubin 1.7 H (0.0-1.0) mg/dL Direct Bilirubin 0.8 H (0.0-0.5) mg/dL AST 217 H (5-31) U/L ALT 225 H (0-31) U/L Alkaline Phosphatase 116 (39-117) U/L Albumin 4.8 (3.5-5.0) g/dL Assessment and Plan (1) Cholelithiasis: Qualifiers: Cholecystitis presence: without cholecystitis Cholelithiasis location: gallbladder and bile duct Status: Acute (2) Biliary obstruction: Status: Acute Plan 25 YF with cholelithiasis admitted to [facility] on 08/21/25 with worsening upper abdominal pain, nausea and vomiting x 3 days. Labs showed elevated LFTs. Abd CT scan showed tiny gallstones within the gallbladder lumen with mild diffuse intrahepatic biliary dilatation suggestive of choledocholithiasis. RECOMMENDATIONS: 1. Repeat LFTs 2. MRCP - order placed MRCP showed Cholelithiasis and a small amount of pericholecystic fluid. No evidence of choledocholithiasis. Repeat labs showed worsening LFTs raising concern for CBD obstruction. Pt was discussed with Dr Odonnell and scheduled for ERCP due to concern for CBD stones since LFTs remained elevated. Procedures Date of Service Date of Service: 08/21/25
[2025-08-21 11:39] LABS: Hematocrit 37.5 % (37.0-47.0); Hemoglobin 12.4 g/dl (12.0-16.0); Mean Corpuscular HGB Conc 33.1 g/dl (31.0-35.0); Mean Corpuscular Hemoglobin 26.7 pg (27.0-33.0); Mean Corpuscular Volume 80.6 fL (80.0-98.0); NRBC Abs Auto 0.000 X10*3/uL (0.0-0.012); NRBC Pct Auto 0.0 /100WBC (0.0-0.2); Platelet Count 321 X10*3/uL (160-400); Red Blood Count 4.65 X10*6/uL (4.20-5.50); White Blood Count 4.2 X10*3/uL (4.8-10.8)
[2025-08-21 11:57] LABS: Alanine Aminotransferase 505 U/L (0-31); Albumin Level 4.2 g/dL (3.5-5.0); Alkaline Phosphatase 140 U/L (39-117); Aspartate Amino Transferase 324 U/L (5-31); Total Protein 6.4 g/dL (6.5-8.0)
[2025-08-21 12:32] LABS: INTERNATIONAL NORM RATIO 1.1 (0.9-1.1); Prothrombin Time 13.7 SEC (11.2-13.5)
--- NOTE | 2025-08-21 13:52 | HO.ANESPROP2 ---
[facility] Active Problems Active Problems: All Active Problems Biliary colic (Acute) Cholelithiasis (Acute) Encounter for Depo-Provera contraception (Acute) Uses 3-month hormonal injection as primary control method (Acute) Heavy vaginal bleeding due to contraceptive implant use (Acute) Surgical History History of Problems with Anesthesia: No Social History Social History Household Members: Family Housing: Apartment Do you presently have visiting nurse or other home services: No Alcohol intake: never Patient Tobacco Use Status: Never used Tobacco Smoked in Last 30 Days: No Use of substances other than those prescribed or required for medical reasons: No Have you been hit, kicked, punched, or otherwise hurt by someone within the past year? If so, by whom?: No Do you feel safe in your current relationship?: No Current Relationship Is there a partner from a previous relationship who is making you feel unsafe now?: No Are you made to feel afraid or neglected: No Advance Directives: No Advance Directives Information Provided: Yes Do you have a plan to hurt others: No Plan Recently lost weight without trying: No Nutrition Risks: No Nutritional Risk Patient : No : No Poor oral hygiene: No Gender identity: Female Meds Allergies Allergy/AdvReac Type Severity Reaction Status Date / Time No Known Allergies Allergy Verified 08/20/25 21:52 Active Medications: Current Medications Acetaminophen (Acetaminophen 325 Mg Tablet) 650 mg PO Q6H PRN PRN Reason: Pain, Mild 1-3,fever,headache Hydromorphone HCl (Hydromorphone Hcl 1 Mg/Ml Syringe) 0.5 mg IVPUSH Q4H PRN; Protocol PRN Reason: Pain, Severe (Pain Scale 7-10) Dextrose/Sodium Chloride (D51/2ns) 1,000 mls @ 100 mls/hr IVCONT .Q10H [facility] Last Admin: 08/21/25 09:05 Dose: 100 mls/hr Ceftriaxone Sodium 1 gm/ (Sodium Chloride) 50 mls @ 100 mls/hr IV Q12H [facility] Last Infusion: 08/21/25 09:48 Dose: Infused Metronidazole (Flagyl) 500 mg in 100 mls @ 100 mls/hr IV Q12H [facility] Last Infusion: 08/21/25 10:41 Dose: Infused Melatonin (Melatonin 3 Mg Tablet) 6 mg PO BEDTIME PRN PRN Reason: Insomnia Ondansetron HCl (Ondansetron Hcl 4 Mg/2 Ml Vial) 4 mg IVPUSH Q8H PRN PRN Reason: Nausea and Vomiting Sodium Chloride (0.9 % Sodium Chloride Flush 3 Ml Syringe) 3 ml IVFLUSH QSHIFT [facility] Temazepam (Temazepam 15 Mg Capsule) 15 mg PO BEDTIME PRN PRN Reason: Insomnia Exam Height,Weight and Vital Signs: Height 4 ft 11 in Weight 71.214 kg Last Vital Signs Temp 98.9 F 08/21/25 13:38 Pulse 67 08/21/25 13:38 Resp 16 08/21/25 13:38 BP 126/73 08/21/25 13:38 Pulse Ox 98 08/21/25 13:38 O2 Del Method Room Air 08/21/25 13:38 Pertinent Lab Results Pertinent Lab Results: Laboratory Tests 08/20/25 08/21/25 08/21/25 22:07 11:27 12:15 WBC 7.5 4.2 L RBC 4.92 4.65 Hgb 13.3 12.4 Hct 39.2 37.5 MCV 79.7 L 80.6 MCH 27.0 26.7 L MCHC 33.9 33.1 RDW 12.6 13.1 Plt Count 367 321 MPV 9.3 L 9.3 L Immature Gran % (Auto) 0.1 Neut % (Auto) 66.3 Lymph % (Auto) 23.9 [place] % (Auto) 7.8 Eos % (Auto) 1.5 Baso % (Auto) 0.4 Lymph # (Auto) 1.8 [place] # (Auto) 0.6 Eos # (Auto) 0.1 Baso # (Auto) 0.0 Abs Immat Gran (auto) 0.01 Absolute Neuts (auto) 5.0 Absolute Nucleated RBC 0.000 0.000 Nucleated RBC % (auto) 0.0 0.0 PT 13.7 H INR 1.1 Sodium 139 Potassium 3.8 Chloride 111 H Carbon Dioxide 22 Anion Gap 10 L BUN 7 L Creatinine 0.72 Estim Creat Clear Calc 104.3 Estimated GFR > 60 Random Glucose 105 Calcium 9.4 Total Bilirubin 1.7 H 3.3 H Direct Bilirubin 0.8 H 1.1 H AST 217 H 324 H ALT 225 H 505 H Alkaline Phosphatase 116 140 H Total Protein 7.5 6.4 L Albumin 4.8 4.2 Lipase 25 Beta HCG, Quant < 2 Airway Mallampati Class: II TM Dist: >3cm Neck ROM: Full Loose/Missing/Broken Teeth: No Heart: RRR Lungs: CTA Assessment and Plan Assessment Anesthesia Assessment: Anesthesia Plan Discussed and Chart Reviewed Final Anesthetic Review History of Problems with Anesthesia: No NPO: Yes ASA Class: II Final Preanesthetic Review: Meds/Allgs Chart Reviewed, Consent Obtained/Reviewed and Anes Risks/Benef Reviewed Patient Risk: Low Procedure Risk: Intermediate Anesthetic Plan Anesthetic Plan: GA Disposition: Standard PACU
--- NOTE | 2025-08-21 14:38 | MHC.SHP ---
Pre-Procedural Eval Section A - 24 Hr Update-Section A only Date of Service: 08/21/25 The patient is an INPATIENT: Yes The patient has been examined within 24 hours of the surgical procedure. The History & Physical has been completed within 30 days and I have reviewed it.: Yes Section B - Complete if H&P > 30 days Chief Complaint: choledocholithiasis Allergies: Allergies Allergy/AdvReac Type Severity Reaction Status Date / Time No Known Allergies Allergy Verified 08/20/25 21:52 Plan I have reviewed the history and physical and performed a pertinent physical examination on my patient. No changes have occurred unless specified. Time Spent With Patient Time: Total time managing care of this patient today ____ minutes.
--- NOTE | 2025-08-21 14:38 | PM.EVENT ---
Event Note Date of Service: 08/21/25 Event Note: GI Consult-Full note dictated Imp: Gallstones, RUQ pain, and rising LFT's. She continues to have pain today and the LFT's are higher today than yesterday. There is no radiographic evidence of cholecystitis or choledocholithiasis. Therefore, given her ongoing pain and rising LFT's, as well as multiple small stones in the gallbladder, I am still concerned that she may have a CBD stone despite the negative imaging studies. Rec: ERCP today. Full consent has been obtained from her for this, including risks of bleeding, perforation, cholangitis, and pancreatitis. D/W patient in detail. She expressed a good understanding and was comfortable with the plan. Thanks Time Spent With Patient Time: Total time managing care of this patient today ____ minutes.
--- NOTE | 2025-08-21 16:16 | P.BOP_ITS ---
Brief Operative Note Date of Service: 08/21/25 Pre-op diagnosis: ? of choledocholitiasis Post-op diagnosis: other (Choledocholithiasis) Procedure: ERCP with sphincterotomy and removal of a small CBD stone Surgeon: Trey Odonnell MD Anesthesia: GETA Was an Self Propelled Hot Mix Roller Operator used for this Procedure?: No Estimated blood loss (mL): 0 Pathology: none sent Condition: stable Disposition: PACU
--- NOTE | 2025-08-21 16:31 | PM.EVENT ---
Event Note Date of Service: 08/21/25 Event Note: ERCP-Full note dictated Findings: 1. Normal major papilla. 2. Guidewire entered the pancreatic duct once but no dye was injected. Thereafter, selective cannulation of the bile duct was obtained over the straight guide wire. Selective cholangiograms revealed good filling of the intrahepatic and extrahepatic bile ducts, cystic duct, and gallbladder 3. There was one < 5mm persistent filling defect seen in the distal CBD c/w a tiny stone 4. An approx 6-8mm sphincterotomy was performed with good drainage of dye and bile, and the small stone passed spontaneously into the duodenum 5. F/U Cholangiograms were negative for other filling defects and the 12mm balloon pulled easily into the duodenum. There was excellent of drainage of dye from the biliary tract. Imp: Choledocholithiasis Rec: Observe, F/U LFT's in AM, advance diet 08/22, and Lap Telma as per surgery. D/W the patient and her mother, Rosanna, in detail. Please text me if having problems over the weekend.Thanks Time Spent With Patient Time: Total time managing care of this patient today ____ minutes.
[2025-08-21] MEDS: 0.9 % Sodium Chloride Flush 3 ML SYRINGE IVFLUSH ×2 (18:23→20:32)
--- NOTE | 2025-08-21 21:59 | OP_ITS ---
DATE OF SERVICE: 08/21/2025 SURGEON: Trey Odonnell MD INDICATIONS: The patient presents for evaluation of abdominal pain, gallstones, and rising LFTs. Full consent has been obtained from her for this, including risks of bleeding, perforation, cholangitis, and pancreatitis. PREOPERATIVE DIAGNOSIS: POSTOPERATIVE DIAGNOSIS: PROCEDURE PERFORMED: Endoscopic retrograde cholangiopancreatography with sphincterotomy and removal of a single common duct stone. ESTIMATED BLOOD LOSS: COMPLICATIONS: ANESTHESIA: General anesthesia and glucagon 0.5 mg IV x 1 dose. ASSISTANTS: SPECIMENS: DESCRIPTION OF PROCEDURE: The patient was placed in the semiprone position. The Pronutria Exalt single use duodenoscope was passed in the posterior oropharynx and upper esophagus. The scope was advanced into the stomach. The scope was advanced to the pylorus, and the duodenum was cannulated to the descending portion. The region of the major papilla was visualized and appeared normal. Using a Pronutria triple lumen sphincterotome, a straight guidewire was passed into the papillary orifice and went into the pancreatic duct judging fluoroscopically. No dye was injected. The wire was removed and repositioned. I then obtained a selective cannulation of the biliary tree judging fluoroscopically. Selective cholangiograms revealed good filling of the intrahepatic ducts, extrahepatic bile duct, cystic duct, and the gallbladder. The intrahepatic and extrahepatic ducts were not dilated. There appeared to be a persistent single small, 5 mm or less, filling defect in the distal bile duct. Given her presentation and the persistence of the filling defect, I did perform an approximately 6 to 8 mm sphincterotomy over the guidewire without any immediate complication. There was good drainage of bile and dye noted. There was no purulence. After the sphincterotomy was completed, the small stone passed spontaneously into the duodenum. Further selective cholangiograms were negative for any further filling defects. The duct was swept with a 12 mm balloon which pulled easily into the duodenum. Given no further filling defects seen and no other abnormalities noted, the procedure was then terminated. The pancreatic duct was not cannulated beyond the initial one time with the guidewire and was not injected with any contrast. The scope was withdrawn from the patient. She tolerated the procedure well and was returned to the recovery area in stable condition. IMPRESSION: Choledocholithiasis, status post sphincterotomy and stone removal. PLAN: The patient will be observed. She will have followup laboratories in the morning. If stable, her diet will be advanced tomorrow. She will undergo a laparoscopic cholecystectomy as per the surgical service. This has been discussed with the patient and her mother, Rosanna, in detail. MD OFELIA Lindsay/NIRAJ / [phone] MTDD
[2025-08-22] VITALS (7 sets, daily range): BP systolic 114–145; BP diastolic 59–79; PULSE 56–84; RESP 14–18; TEMP 36.1–36.6; O2SAT 95–100
[2025-08-22] MEDS: Dextrose 5 % and 0.45 % NaCl 1,000 ML 100 ML IVCONT ×3 (02:16→23:49)
[2025-08-22] MEDS: oxyCODONE HCl Immed Release 5 MG TABLET 10 MG PO (04:29)
--- NOTE | 2025-08-22 05:56 | PC.NURSE ---
after taking oxycodone with a small sip of water, about an hour after patient had a moderate amount of green vomit, zofran given, will reassess.
--- NOTE | 2025-08-22 06:35 | P.PNGS_ITS ---
Subjective Subjective Date of Service: 08/22/25 Interval history: Patient reports increased abdominal pain during the night now significantly improved with current pain meds. She tried oxycodone although subsequently vomited (green fluid). Physical Exam 2 Vital Signs: Vital Signs: Last Vital Signs Temp 96.9 F 08/22/25 03:15 Pulse 84 08/22/25 03:15 Resp 16 08/22/25 03:15 BP 119/72 08/22/25 03:15 Pulse Ox 95 08/22/25 03:15 O2 Del Method Room Air 08/22/25 03:15 BMI result Body Mass Index 31.7 Const: General: tired appearing Nutritional Appearance: well nourished O rientation/consciousness: patient oriented x3 Limitations: no limitations Resp: Effort & Inspection: normal respiratory effort, no audible wheezes, no cough and no respiratory distress GI: Palpation (GI): Soft to palpation, Tenderness to palpation present (GI) in the epigastrum, no guarding, not rigid and No hepatosplenomegaly present P ercussion: Yes normal to percussion Auscultation: normal bowel sounds Skin: General skin exam: no jaundice and pallor Neuro: General: patient oriented x3 Extrem: General: No edema Objective Data Active Medications Acetaminophen (Acetaminophen 325 Mg Tablet) 650 mg PO Q6H PRN PRN Reason: Pain, Mild 1-3,fever,headache Dextrose/Sodium Chloride (D51/2ns) 1,000 mls @ 100 mls/hr IVCONT .Q10H [facility] Last Admin: 08/22/25 04:20 Dose: Not Given Documented By: KRISTA Non-Admin Reason: Previously Administered Ceftriaxone Sodium 1 gm/ (Sodium Chloride) 50 mls @ 100 mls/hr IV Q12H [facility] Last Infusion: 08/21/25 22:38 Dose: Infused Documented By: KRISTA Metronidazole (Flagyl) 500 mg in 100 mls @ 100 mls/hr IV Q12H [facility] Last Infusion: 08/21/25 21:40 Dose: Infused Documented By: KRISTA Melatonin (Melatonin 3 Mg Tablet) 6 mg PO BEDTIME PRN PRN Reason: Insomnia Morphine Sulfate (Morphine Sulfate 10 Mg/Ml Cartridge) 5 mg IVPUSH Q4H PRN; Protocol PRN Reason: Pain, Severe (Pain Scale 7-10) Naloxone HCl (Naloxone Hcl 0.4 Mg/Ml Vial) 0.04 mg IVPUSH Q5M PRN PRN Reason: Excessive sedation or RR < 8 Ondansetron HCl (Ondansetron Hcl 4 Mg/2 Ml Vial) 4 mg IVPUSH Q8H PRN PRN Reason: Nausea and Vomiting Last Admin: 08/22/25 05:51 Dose: 4 mg Documented By: KRISTA Oxycodone HCl (Oxycodone Hcl Immed Release 5 Mg Tablet) 5 mg PO Q4H PRN PRN Reason: Pain, Moderate(Pain Scale 4-6) Sodium Chloride (0.9 % Sodium Chloride Flush 3 Ml Syringe) 3 ml IVFLUSH QSHIFT JESUS Last Admin: 08/21/25 20:32 Dose: 3 ml Documented By: KRISTA Temazepam (Temazepam 15 Mg Capsule) 15 mg PO BEDTIME PRN PRN Reason: Insomnia Labs 08/21/25 11:27 08/20/25 22:07 Labs: Laboratory Results - last 24 hr 08/21/25 08/21/25 11:27 12:15 MCV 80.6 MCH 26.7 L MCHC 33.1 RDW 13.1 Plt Count 321 MPV 9.3 L Absolute Nucleated RBC 0.000 Nucleated RBC % (auto) 0.0 PT 13.7 H INR 1.1 Total Bilirubin 3.3 H Direct Bilirubin 1.1 H AST 324 H ALT 505 H Alkaline Phosphatase 140 H Total Protein 6.4 L Albumin 4.2 Procedures Date of Service Date of Service: 08/22/25 Progress Note: A&P Assessment and plan (1) Choledocholithiasis: Status: Acute Plan 25-year-old female patient with complaints of abdominal pain in the epigastrium found to have choledocholithiasis, now POD 1 following ERCP, sphincterotomy, common bile duct stone removal. She continues to have abdominal pain not relieved with current medications. We will switch to morphine for severe pain. Await a.m. lab results. Continue NPO pending lab results. Patient will need continued hospitalization due to ongoing abdominal pain. Time Spent With Patient Time: Total time managing care of this patient today ____ minutes. Quality Stroke Does the patient have a stroke diagnosis?: No VTE Prior VTE?: No VTE Risk Level:: Surgical - low VTE Device Contraindication: N/A - Device Ordered VTE Drug Contraindication: N/A - Med Ordered
[2025-08-22 06:40] LABS: Hematocrit 39.4 % (37.0-47.0); Hemoglobin 13.3 g/dl (12.0-16.0); Mean Corpuscular HGB Conc 33.8 g/dl (31.0-35.0); Mean Corpuscular Hemoglobin 26.9 pg (27.0-33.0); Mean Corpuscular Volume 79.8 fL (80.0-98.0); NRBC Abs Auto 0.000 X10*3/uL (0.0-0.012); NRBC Pct Auto 0.0 /100WBC (0.0-0.2); Platelet Count 314 X10*3/uL (160-400); Red Blood Count 4.94 X10*6/uL (4.20-5.50); White Blood Count 6.8 X10*3/uL (4.8-10.8)
[2025-08-22 06:58] LABS: Alanine Aminotransferase 528 U/L (0-31); Albumin Level 4.3 g/dL (3.5-5.0); Alkaline Phosphatase 215 U/L (39-117); Anion Gap 13 (12-20); Aspartate Amino Transferase 166 U/L (5-31); Blood Urea Nitrogen 5 mg/dL (9-16); Calcium 9.0 mg/dL (8.4-10.2); Carbon Dioxide 18 mmol/L (22-29); Chloride 110 mmol/L (96-108); Creatinine Clr Calc Pharmacy 121.1; Estimated Glomerular Filt Rate > 60; Potassium 3.7 mmol/L (3.3-5.1); Sodium 137 mmol/L (135-145); Total Protein 6.8 g/dL (6.5-8.0)
[2025-08-22] MEDS: metroNIDAZOLE/NS 500 MG/100 ML PIGGYBACK 100 MG IV ×2 (07:56→19:48)
[2025-08-22 11:46] LABS: Lipase 2680 U/L (8-78)
--- NOTE | 2025-08-22 15:36 | MHC.CM.PN ---
PT REPORTS SHE LIVES WITH HER PARENTS SHE IS INDEPENDENT WITH CARE AND HAS NO DME OR SERVICES PT DECLINES A HCP PCP AT [facility] DCP: HOME VIA FAMILY TRANSPORT
[2025-08-22] MEDS: oxyCODONE HCl Immed Release 5 MG TABLET PO ×2 (19:46→23:48)
--- NOTE | 2025-08-22 19:49 | PM.EVENT ---
Event Note Date of Service: 08/22/25 Event Note: GI-Chart and patient course reviewed It appears that she has a component of ERCP-induced pancreatitis based on her labs and clinical course. I would recommend supportive care, IV fluids, NPO, and F/U labs. Dr. Avelar covering GI this weekend. Thanks Time Spent With Patient Time: Total time managing care of this patient today ____ minutes.
[2025-08-23 03:06] VITALS: BP 118/58; PULSE 73; RESP 16; TEMP 36; O2SAT 98
[2025-08-23] MEDS: oxyCODONE HCl Immed Release 5 MG TABLET PO ×2 (04:21→18:48)
[2025-08-23 06:16] LABS: Hematocrit 37.5 % (37.0-47.0); Hemoglobin 12.3 g/dl (12.0-16.0); Imm Gran Abs Auto 0.02 X10*3/uL (0.00-0.03); Imm Gran Pct Auto 0.3 % (0.0-0.4); Lymphocytes Absolute Auto 1.3 X10*3/uL (1.2-4.9); MANUAL DIFF FLAG NO; Mean Corpuscular HGB Conc 32.8 g/dl (31.0-35.0); Mean Corpuscular Hemoglobin 26.3 pg (27.0-33.0); Mean Corpuscular Volume 80.3 fL (80.0-98.0); NRBC Abs Auto 0.000 X10*3/uL (0.0-0.012); NRBC Pct Auto 0.0 /100WBC (0.0-0.2); Platelet Count 280 X10*3/uL (160-400); Red Blood Count 4.67 X10*6/uL (4.20-5.50); White Blood Count 7.9 X10*3/uL (4.8-10.8)
[2025-08-23 06:39] LABS: Alanine Aminotransferase 318 U/L (0-31); Albumin Level 3.9 g/dL (3.5-5.0); Alkaline Phosphatase 173 U/L (39-117); Anion Gap 13 (12-20); Aspartate Amino Transferase 46 U/L (5-31); Blood Urea Nitrogen 3 mg/dL (9-16); Calcium 8.9 mg/dL (8.4-10.2); Carbon Dioxide 21 mmol/L (22-29); Chloride 110 mmol/L (96-108); Creatinine Clr Calc Pharmacy 119.3; Estimated Glomerular Filt Rate > 60; Potassium 3.5 mmol/L (3.3-5.1); Sodium 140 mmol/L (135-145); Total Protein 6.3 g/dL (6.5-8.0)
[2025-08-23 06:42] LABS: Lipase 703 U/L (8-78)
[2025-08-23 07:23] VITALS: BP 117/66; PULSE 80; RESP 16; TEMP 37.2; O2SAT 98
[2025-08-23] MEDS: metroNIDAZOLE/NS 500 MG/100 ML PIGGYBACK 100 MG IV ×2 (08:22→19:45)
[2025-08-23] MEDS: Dextrose 5 % and 0.45 % NaCl 1,000 ML 100 ML IVCONT (08:28)
--- NOTE | 2025-08-23 10:19 | P.PNGS_ITS ---
Subjective Subjective Date of Service: 08/23/25 Interval history: Patient overall feels improved today with less abdominal pain. She still has occasional sharp pain in the epigastric region. She is tolerating a clear liquid diet without nausea, vomiting. Physical Exam 2 Vital Signs: Vital Signs: Last Vital Signs Temp 98.9 F 08/23/25 07:23 Pulse 80 08/23/25 07:23 Resp 16 08/23/25 07:23 BP 117/66 08/23/25 07:23 Pulse Ox 98 08/23/25 07:23 O2 Del Method Room Air 08/23/25 07:23 BMI result Body Mass Index 31.7 Const: General: no acute distress Nutritional Appearance: well nourished Orientation/consciousness: patient oriented x3 Resp: Effort & Inspection: normal respiratory effort, no audible wheezes, no cough and no respiratory distress GI: Inspection: Yes normal to inspection Palpation (GI): Soft to palpation, Tenderness to palpation present (GI) in the epigastrum; Mendez's sign negative, no guarding, not rigid and No hepatosplenomegaly present Skin: Other: Warm, dry, no rash Neuro: General: patient oriented x3 Extrem: Other: No edema Objective Data Active Medications Acetaminophen (Acetaminophen 325 Mg Tablet) 650 mg PO Q6H PRN PRN Reason: Pain, Mild 1-3,fever,headache Ceftriaxone Sodium 1 gm/ (Sodium Chloride) 50 mls @ 100 mls/hr IV Q12H [facility] Last Infusion: 08/23/25 09:04 Dose: Infused Documented By: RAHEEM Metronidazole (Flagyl) 500 mg in 100 mls @ 100 mls/hr IV Q12H [facility] Last Infusion: 08/23/25 09:29 Dose: Infused Documented By: RAHEEM Melatonin (Melatonin 3 Mg Tablet) 6 mg PO BEDTIME PRN PRN Reason: Insomnia Morphine Sulfate (Morphine Sulfate 10 Mg/Ml Cartridge) 5 mg IVPUSH Q4H PRN; Protocol PRN Reason: Pain, Severe (Pain Scale 7-10) Last Admin: 08/23/25 06:34 Dose: 5 mg Documented By: JESICA Naloxone HCl (Naloxone Hcl 0.4 Mg/Ml Vial) 0.04 mg IVPUSH Q5M PRN PRN Reason: Excessive sedation or RR < 8 Ondansetron HCl (Ondansetron Hcl 4 Mg/2 Ml Vial) 4 mg IVPUSH Q8H PRN PRN Reason: Nausea and Vomiting Last Admin: 08/22/25 05:51 Dose: 4 mg Documented By: KRISAT Oxycodone HCl (Oxycodone Hcl Immed Release 5 Mg Tablet) 5 mg PO Q4H PRN PRN Reason: Pain, Moderate(Pain Scale 4-6) Last Admin: 08/23/25 04:21 Dose: 5 mg Documented By: JESICA Sodium Chloride (0.9 % Sodium Chloride Flush 3 Ml Syringe) [facility] Last Admin: 08/23/25 07:08 Dose: Not Given Documented By: RAHEEM Non-Admin Reason: IV Running Temazepam (Temazepam 15 Mg Capsule) 15 mg PO BEDTIME PRN PRN Reason: Insomnia Labs 08/23/25 05:37 08/23/25 05:37 Labs: Laboratory Results - last 24 hr 08/22/25 08/23/25 06:27 05:37 MCV 80.3 MCH 26.3 L MCHC 32.8 RDW 13.2 Plt Count 280 MPV 10.0 Immature Gran % (Auto) 0.3 Neut % (Auto) 74.1 H Lymph % (Auto) 16.6 L [place] % (Auto) 7.6 Eos % (Auto) 1.1 Baso % (Auto) 0.3 Lymph # (Auto) 1.3 [place] # (Auto) 0.6 Eos # (Auto) 0.1 Baso # (Auto) 0.0 Abs Immat Gran (auto) 0.02 Absolute Neuts (auto) 5.9 Absolute Nucleated RBC 0.000 Nucleated RBC % (auto) 0.0 Anion Gap 13 Estim Creat Clear Calc 119.3 Estimated GFR > 60 Fasting Glucose 100 H Calcium 8.9 Total Bilirubin 0.9 Direct Bilirubin 0.5 AST 46 H ALT 318 H Alkaline Phosphatase 173 H Total Protein 6.3 L Albumin 3.9 Lipase 2680 H 703 H Procedures Date of Service Date of Service: 08/23/25 Progress Note: A&P Assessment and plan (1) Choledocholithiasis: Status: Acute (2) Cholelithiasis: Status: Acute (3) Pancreatitis: Status: Acute Plan 25-year-old presenting with elevated LFTs found to have a common bile duct stone, now status post ERCP with findings of a common duct stone. Postprocedure the patient developed increased pain in the epigastric region and was found to have an elevated lipase level suggestive of pancreatitis. Levels this morning are improved and symptomatically she feels better. We discussed possible laparoscopic/open cholecystectomy once pancreatitis has resolved. We will make NPO after midnight. Time Spent With Patient Time: Total time managing care of this patient today ____ minutes. Quality Stroke Does the patient have a stroke diagnosis?: No VTE Prior VTE?: No VTE Risk Level:: Surgical - low VTE Device Contraindication: N/A - Device Ordered VTE Drug Contraindication: N/A - Med Ordered
[2025-08-23 12:00] VITALS: BP 115/63; PULSE 81; RESP 16; TEMP 37.3; O2SAT 97
[2025-08-23 14:58] VITALS: BP 109/58; PULSE 88; RESP 16; TEMP 37.5; O2SAT 98
[2025-08-23 19:24] VITALS: BP 122/67; PULSE 94; RESP 17; TEMP 36.4; O2SAT 98
[2025-08-23] MEDS: 0.9 % Sodium Chloride Flush 3 ML SYRINGE IVFLUSH (19:49)
[2025-08-24] VITALS (9 sets, daily range): BP systolic 102–133; BP diastolic 61–75; PULSE 85–114; RESP 18; TEMP 36.3–36.7; O2SAT 94–98
[2025-08-24 06:11] LABS: Alanine Aminotransferase 219 U/L (0-31); Albumin Level 3.6 g/dL (3.5-5.0); Alkaline Phosphatase 173 U/L (39-117); Aspartate Amino Transferase 39 U/L (5-31); Lipase 146 U/L (8-78); Total Protein 6.1 g/dL (6.5-8.0)
--- NOTE | 2025-08-24 07:36 | PM.PNGS ---
Subjective Subjective Date of Service: 08/24/25 Interval history: pain improving. continues to have pain worse in RUQ and epigastric area. Denies nausea or vomiting Physical Exam Vital Signs: Vital Signs: Last Vital Signs Temp 97.9 F 08/24/25 04:00 Pulse 98 08/24/25 05:49 Resp 18 08/24/25 04:00 BP 124/64 08/24/25 04:00 Pulse Ox 95 08/24/25 04:00 O2 Del Method Room Air 08/24/25 04:00 BMI result Body Mass Index 31.7 Const: General: comfortable and no acute distress Orientation/consciousness: patient oriented x3 GI: Inspection: No distended Palpation (GI): Soft to palpation, Tenderness to palpation present (GI) in the epigastrum and in the RUQ and no guarding Neuro: General: patient oriented x3 Objective Data Active Medications Acetaminophen (Acetaminophen 325 Mg Tablet) 650 mg PO Q6H PRN PRN Reason: Pain, Mild 1-3,fever,headache Ceftriaxone Sodium 1 gm/ (Sodium Chloride) 50 mls @ 100 mls/hr IV Q12H [facility] Last Infusion: 08/23/25 21:21 Dose: Infused Documented By: JESICA Metronidazole (Flagyl) 500 mg in 100 mls @ 100 mls/hr IV Q12H [facility] Last Infusion: 08/23/25 20:45 Dose: Infused Documented By: JESICA Melatonin (Melatonin 3 Mg Tablet) 6 mg PO BEDTIME PRN PRN Reason: Insomnia Morphine Sulfate (Morphine Sulfate 10 Mg/Ml Cartridge) 5 mg IVPUSH Q4H PRN; Protocol PRN Reason: Pain, Severe (Pain Scale 7-10) Last Admin: 08/24/25 05:15 Dose: 5 mg Documented By: JESICA Naloxone HCl (Naloxone Hcl 0.4 Mg/Ml Vial) 0.04 mg IVPUSH Q5M PRN PRN Reason: Excessive sedation or RR < 8 Ondansetron HCl (Ondansetron Hcl 4 Mg/2 Ml Vial) 4 mg IVPUSH Q8H PRN PRN Reason: Nausea and Vomiting Last Admin: 08/22/25 05:51 Dose: 4 mg Documented By: KRISTA Oxycodone HCl (Oxycodone Hcl Immed Release 5 Mg Tablet) 5 mg PO Q4H PRN PRN Reason: Pain, Moderate(Pain Scale 4-6) Last Admin: 08/23/25 18:48 Dose: 5 mg Documented By: RAHEEM Sodium Chloride (0.9 % Sodium Chloride Flush 3 Ml Syringe) [facility] Last Admin: 08/23/25 19:49 Dose: 3 ml Documented By: JESICA Temazepam (Temazepam 15 Mg Capsule) 15 mg PO BEDTIME PRN PRN Reason: Insomnia Labs 08/23/25 05:37 08/23/25 05:37 Labs: Laboratory Results - last 24 hr 08/24/25 05:28 Hold Purple Top SEE NOTE Total Bilirubin 1.2 H Direct Bilirubin 0.5 AST 39 H ALT 219 H Alkaline Phosphatase 173 H Total Protein 6.1 L Albumin 3.6 Lipase 146 H Procedures Date of Service Date of Service: 08/24/25 Progress Note: A&P Assessment and plan (1) Biliary colic: Status: Acute (2) Pancreatitis: Status: Acute (3) Choledocholithiasis: Status: Acute Plan 25-year-old female with known biliary colic admitted for choledocholithiasis s/p ERCP now with pancreatitis. Overall improving, pain improving but remains in right upper quadrant epigastric area. Had previously been tolerating clear liquid diet. Denying nausea or vomiting. Lipase has been trending down, now 146. Total bilirubin now 1.2 today, elevated from yesterday. Transaminases and alk-phos slowly trending down as well. On exam abdomen soft some tenderness in the right upper quadrant epigastric area, no guarding. For now plan to continue trending labs for resolving pancreatitis, on-call to continue with cholecystectomy as outpatient, but if unable to do so may need to do cholecystectomy during this admission. For now she is okay to have clear liquid diet, would take the slowly given her pancreatitis. No surgical intervention at this time. Continue antibiotics Clear liquid diet Trend liver enzymes, lipase Ambulation as tolerated Time Spent With Patient Time: Total time managing care of this patient today ____ minutes. Quality Stroke Does the patient have a stroke diagnosis?: No VTE Prior VTE?: No VTE Risk Level:: Surgical - low VTE Device Contraindication: N/A - Device Ordered VTE Drug Contraindication: N/A - Med Ordered
[2025-08-24] MEDS: 0.9 % Sodium Chloride Flush 3 ML SYRINGE IVFLUSH ×2 (08:47→15:19)
[2025-08-24] MEDS: metroNIDAZOLE/NS 500 MG/100 ML PIGGYBACK 100 MG IV ×2 (08:47→19:53)
--- NOTE | 2025-08-24 12:43 | MHC.CM.PN ---
Not medically cleared for dc. CM will continue to follow.
[2025-08-25] MEDS: 0.9 % Sodium Chloride Flush 3 ML SYRINGE IVFLUSH ×2 (00:14→23:37)
[2025-08-25 03:47] VITALS: BP 129/71; PULSE 88; RESP 18; TEMP 36.2; O2SAT 97
[2025-08-25 06:33] LABS: Alanine Aminotransferase 163 U/L (0-31); Albumin Level 3.7 g/dL (3.5-5.0); Alkaline Phosphatase 179 U/L (39-117); Aspartate Amino Transferase 39 U/L (5-31); Lipase 49 U/L (8-78); Total Protein 6.3 g/dL (6.5-8.0)
[2025-08-25 07:28] VITALS: BP 116/61; PULSE 73; RESP 18; TEMP 36.6; O2SAT 98
--- NOTE | 2025-08-25 07:34 | PM.PNGS ---
Subjective Subjective Date of Service: 08/25/25 Interval history: Feels about the same as yesterday 01/17 RUQ. Denies nausea or vomiting. Tolerated CLD yesterday without symptoms Physical Exam Vital Signs: Vital Signs: Last Vital Signs Temp 97.8 F 08/25/25 07:28 Pulse 73 08/25/25 07:28 Resp 18 08/25/25 07:28 BP 116/61 08/25/25 07:28 Pulse Ox 98 08/25/25 07:28 O2 Del Method Room Air 08/25/25 07:28 BMI result Body Mass Index 31.7 Const: General: comfortable and no acute distress Orientation/consciousness: patient oriented x3 Resp: Effort & Inspection: normal respiratory effort and able to speak in complete sentences GI: Inspection: No distended Palpation (GI): Soft to palpation and Tenderness to palpation present (GI) in the epigastrum and in the RUQ Neuro: General: patient oriented x3 Objective Data Active Medications Acetaminophen (Acetaminophen 325 Mg Tablet) 650 mg PO Q6H PRN PRN Reason: Pain, Mild 1-3,fever,headache Metronidazole (Flagyl) 500 mg in 100 mls @ 100 mls/hr IV Q12H [facility] Last Infusion: 08/24/25 20:53 Dose: Infused Documented By: KRISTA Ceftriaxone Sodium 1 gm/ (Sodium Chloride) 50 mls @ 100 mls/hr IV Q12H [facility] Last Infusion: 08/24/25 23:00 Dose: Infused Documented By: KRISTA Melatonin (Melatonin 3 Mg Tablet) 6 mg PO BEDTIME PRN PRN Reason: Insomnia Morphine Sulfate (Morphine Sulfate 10 Mg/Ml Cartridge) 5 mg IVPUSH Q4H PRN; Protocol PRN Reason: Pain, Severe (Pain Scale 7-10) Last Admin: 08/25/25 02:46 Dose: 5 mg Documented By: KRISTA Naloxone HCl (Naloxone Hcl 0.4 Mg/Ml Vial) 0.04 mg IVPUSH Q5M PRN PRN Reason: Excessive sedation or RR < 8 Ondansetron HCl (Ondansetron Hcl 4 Mg/2 Ml Vial) 4 mg IVPUSH Q8H PRN PRN Reason: Nausea and Vomiting Last Admin: 08/22/25 05:51 Dose: 4 mg Documented By: KRISTA Oxycodone HCl (Oxycodone Hcl Immed Release 5 Mg Tablet) 5 mg PO Q4H PRN PRN Reason: Pain, Moderate(Pain Scale 4-6) Last Admin: 08/23/25 18:48 Dose: 5 mg Documented By: RAHEEM Sodium Chloride (0.9 % Sodium Chloride Flush 3 Ml Syringe) 3 ml IVFLUSH QSHIFT JESUS Last Admin: 08/25/25 00:14 Dose: 3 ml Documented By: KRISTA Temazepam (Temazepam 15 Mg Capsule) 15 mg PO BEDTIME PRN PRN Reason: Insomnia Labs 08/23/25 05:37 08/23/25 05:37 Labs: Laboratory Results - last 24 hr 08/25/25 05:56 Total Bilirubin 0.8 Direct Bilirubin 0.5 AST 39 H ALT 163 H Alkaline Phosphatase 179 H Total Protein 6.3 L Albumin 3.7 Lipase 49 Procedures Date of Service Date of Service: 08/25/25 Progress Note: A&P Assessment and plan (1) Biliary colic: Status: Acute (2) Pancreatitis: Status: Acute (3) Choledocholithiasis: Status: Acute Plan 25-year-old female with known biliary colic admitted for choledocholithiasis s/p ERCP now with pancreatitis. Overall improving, pain improving but remains in right upper quadrant and epigastric area. Had previously been tolerating clear liquid diet. Denying nausea or vomiting. Lipase and Total bilirubin improved, now within normal limits. Transaminases and alk-phos continue to slowly trend down as well. On exam abdomen remains soft with mild tenderness in the right upper quadrant epigastric area, no guarding. For now plan to continue trending labs for resolving pancreatitis and elevated LFTs. Per Dr. Paulino we will continue with our plan for cholecystectomy as outpatient, but if unable to do so may need to do cholecystectomy during this admission if labs not improving. For now we will continue with clear liquid diet, would take the slowly given her pancreatitis. Would not want to preciado her back. No surgical intervention at this time. If not improving this afternoon we will add her on for OR schedule for tomorrow afternoon. Continue antibiotics Clear liquid diet Trend liver enzymes, lipase Ambulation as tolerated Time Spent With Patient Time: Total time managing care of this patient today ____ minutes. Quality Stroke Does the patient have a stroke diagnosis?: No VTE Prior VTE?: No VTE Risk Level:: Surgical - low VTE Device Contraindication: N/A - Device Ordered VTE Drug Contraindication: N/A - Med Ordered
[2025-08-25] MEDS: metroNIDAZOLE/NS 500 MG/100 ML PIGGYBACK 100 MG IV (07:46)
[2025-08-25 12:00] VITALS: BP 113/61; PULSE 79; RESP 18; O2SAT 98
[2025-08-25] MEDS: oxyCODONE HCl Immed Release 5 MG TABLET PO ×2 (13:00→23:36)
[2025-08-25 15:40] VITALS: BP 108/65; PULSE 75; RESP 18; TEMP 36.1; O2SAT 97
[2025-08-25 19:37] VITALS: BP 127/80; PULSE 85; RESP 19; TEMP 36.4; O2SAT 98
[2025-08-25 23:38] VITALS: BP 114/75; PULSE 69; RESP 19; TEMP 36.3; O2SAT 99
[2025-08-26] VITALS (13 sets, daily range): BP systolic 115–145; BP diastolic 58–80; PULSE 56–111; RESP 10–18; TEMP 36.1–36.8; O2SAT 95–98
--- NOTE | 2025-08-26 08:13 | P.PNGS_ITS ---
Subjective Subjective Date of Service: 08/26/25 Interval history: feeling increased pain today in RUQ, states she gets a pain in the RUQ of the abdomen when she takes a deep breath. yesterday had difficulty after diet was advanced to regular diet. feels full after a few bites. denies vomiting. Physical Exam 2 Vital Signs: Vital Signs: Last Vital Signs Temp 97.5 F 08/26/25 07:21 Pulse 66 08/26/25 07:21 Resp 16 08/26/25 07:21 BP 117/68 08/26/25 07:21 Pulse Ox 97 08/26/25 07:21 O2 Del Method Room Air 08/26/25 07:21 BMI result Body Mass Index 31.7 Const: General: comfortable and no acute distress O rientation/consciousness: patient oriented x3 Resp: Effort & Inspection: normal respiratory effort and able to speak in complete sentences GI: Inspection: No distended Palpation (GI): Soft to palpation and Tenderness to palpation present (GI) (mild) in the epigastrum and in the RUQ Neuro: General: patient oriented x3 Objective Data Active Medications Acetaminophen (Acetaminophen 325 Mg Tablet) 650 mg PO Q6H PRN PRN Reason: Pain, Mild 1-3,fever,headache Melatonin (Melatonin 3 Mg Tablet) 6 mg PO BEDTIME PRN PRN Reason: Insomnia Last Admin: 08/26/25 01:38 Dose: 6 mg Documented By: ARIC Morphine Sulfate (Morphine Sulfate 10 Mg/Ml Cartridge) 5 mg IVPUSH Q4H PRN; Protocol PRN Reason: Pain, Severe (Pain Scale 7-10) Last Admin: 08/26/25 01:38 Dose: 5 mg Documented By: ARIC Naloxone HCl (Naloxone Hcl 0.4 Mg/Ml Vial) 0.04 mg IVPUSH Q5M PRN PRN Reason: Excessive sedation or RR < 8 Ondansetron HCl (Ondansetron Hcl 4 Mg/2 Ml Vial) 4 mg IVPUSH Q8H PRN PRN Reason: Nausea and Vomiting Last Admin: 08/22/25 05:51 Dose: 4 mg Documented By: KRISTA Oxycodone HCl (Oxycodone Hcl Immed Release 5 Mg Tablet) 5 mg PO Q4H PRN PRN Reason: Pain, Moderate(Pain Scale 4-6) Last Admin: 08/25/25 23:36 Dose: 5 mg Documented By: ARIC Sodium Chloride (0.9 % Sodium Chloride Flush 3 Ml Syringe) 3 ml IVFLUSH [facility] Last Admin: 08/25/25 23:37 Dose: 3 ml Documented By: ARIC Temazepam (Temazepam 15 Mg Capsule) 15 mg PO BEDTIME PRN PRN Reason: Insomnia Labs 08/23/25 05:37 08/26/25 08:54 Procedures Date of Service Date of Service: 08/26/25 Progress Note: A&P Assessment and plan (1) Biliary colic: Status: Acute (2) Pancreatitis: Status: Acute (3) Choledocholithiasis: Status: Acute Plan 25-year-old female with known biliary colic admitted for choledocholithiasis s/p ERCP now with pancreatitis. Overall improving, pain improving but remains in right upper quadrant and epigastric area, worse than yesterday afternoon. Diet advanced yesterday, feeling increased pain. denies nausea but states was only able to eat a small amount before feeling full. Lipase and total bilirubin improved, remain within normal limits. Transaminases and alk-phos continue to slowly trend down as well. On exam abdomen remains soft with mild tenderness in the right upper quadrant epigastric area, no guarding. Will add patient on for laparascopic cholecystectomy possible open this afternoon due to worsening pain, unable to tolerate regular diet. we discussed risked of the procedure including but not limited to bleeding, infection, bile leak, poor wound healing. Patient agrees to surgical intervention and wishes to proceed. We will resume antibiotics that were discontinued yesterday afternoon. NPO lap rickey possible open Time Spent With Patient Time: Total time managing care of this patient today ____ minutes. Quality Stroke Does the patient have a stroke diagnosis?: No VTE Prior VTE?: No VTE Risk Level:: Surgical - low VTE Device Contraindication: N/A - Device Ordered VTE Drug Contraindication: N/A - Med Ordered
[2025-08-26] MEDS: 0.9 % Sodium Chloride Flush 3 ML SYRINGE IVFLUSH ×2 (09:09→22:01)
[2025-08-26 10:08] LABS: Alanine Aminotransferase 126 U/L (0-31); Albumin Level 3.8 g/dL (3.5-5.0); Alkaline Phosphatase 176 U/L (39-117); Anion Gap 11 (12-20); Aspartate Amino Transferase 26 U/L (5-31); Blood Urea Nitrogen 6 mg/dL (9-16); Calcium 9.2 mg/dL (8.4-10.2); Carbon Dioxide 25 mmol/L (22-29); Chloride 109 mmol/L (96-108); Creatinine Clr Calc Pharmacy 127.3; Estimated Glomerular Filt Rate > 60; Potassium 3.5 mmol/L (3.3-5.1); Sodium 141 mmol/L (135-145); Total Protein 6.6 g/dL (6.5-8.0)
--- NOTE | 2025-08-26 10:44 | HO.ANESPROP2 ---
Documented by User: Morena Nassar NP 08/26/25 10:45 HPI - Anesthesia Eval Consult details Narrative: 25 yr old female for Cholecystectomy Laparoscopic,possible open s/p ERCP 08/21/25 with GA, ETT 7; [place] [facility] [place] RUQ pain PMFSH Active Problems Active Problems: All Active Problems Pancreatitis (Acute) Choledocholithiasis (Acute) Biliary obstruction (Acute) Biliary colic (Acute) Cholelithiasis (Acute) Encounter for Depo-Provera contraception (Acute) Uses 3-month hormonal injection as primary control method (Acute) Heavy vaginal bleeding due to contraceptive implant use (Acute) Surgical History History of Problems with Anesthesia: No Social History Social History Household Members: Family Housing: Apartment Do you presently have visiting nurse or other home services: No Alcohol intake: never Patient Tobacco Use Status: Never used Tobacco Smoked in Last 30 Days: No Use of substances other than those prescribed or required for medical reasons: No Currently Displaying Signs/Symptoms of Drug Intoxication Withdrawal: No Have you been hit, kicked, punched, or otherwise hurt by someone within the past year? If so, by whom?: No Do you feel safe in your current relationship?: No Current Relationship Is there a partner from a previous relationship who is making you feel unsafe now?: No Are you made to feel afraid or neglected: No Advance Directives: No Advance Directives Information Provided: Yes Do you have a plan to hurt others: No Plan Recently lost weight without trying: No Nutrition Risks: No Nutritional Risk Patient : No : No Poor oral hygiene: No service: No Gender identity: Female Meds Allergies Allergy/AdvReac Type Severity Reaction Status Date / Time No Known Allergies Allergy Verified 08/20/25 21:52 Active Medications: Current Medications Acetaminophen (Acetaminophen 325 Mg Tablet) 650 mg PO Q6H PRN PRN Reason: Pain, Mild 1-3,fever,headache Melatonin (Melatonin 3 Mg Tablet) 6 mg PO BEDTIME PRN PRN Reason: Insomnia Last Admin: 08/26/25 01:38 Dose: 6 mg Morphine Sulfate (Morphine Sulfate 10 Mg/Ml Cartridge) 5 mg IVPUSH Q4H PRN; Protocol PRN Reason: Pain, Severe (Pain Scale 7-10) Last Admin: 08/26/25 01:38 Dose: 5 mg Naloxone HCl (Naloxone Hcl 0.4 Mg/Ml Vial) 0.04 mg IVPUSH Q5M PRN PRN Reason: Excessive sedation or RR < 8 Ondansetron HCl (Ondansetron Hcl 4 Mg/2 Ml Vial) 4 mg IVPUSH Q8H PRN PRN Reason: Nausea and Vomiting Last Admin: 08/22/25 05:51 Dose: 4 mg Oxycodone HCl (Oxycodone Hcl Immed Release 5 Mg Tablet) 5 mg PO Q4H PRN PRN Reason: Pain, Moderate(Pain Scale 4-6) Last Admin: 08/25/25 23:36 Dose: 5 mg Sodium Chloride (0.9 % Sodium Chloride Flush 3 Ml Syringe) 3 ml IVFLUSH QSHIFT [facility] Last Admin: 08/26/25 09:09 Dose: 3 ml Exam Height,Weight and Vital Signs: Height 4 ft 11 in Weight 71.214 kg Last Vital Signs Temp 97.5 F 08/26/25 07:21 Pulse 66 08/26/25 07:21 Resp 16 08/26/25 07:21 BP 117/68 08/26/25 07:21 Pulse Ox 97 08/26/25 07:21 O2 Del Method Room Air 08/26/25 07:21 Pertinent Lab Results Pertinent Lab Results: Laboratory Tests 08/20/25 08/21/25 08/21/25 22:07 11:27 12:15 WBC 7.5 4.2 L RBC 4.92 4.65 Hgb 13.3 12.4 Hct 39.2 37.5 MCV 79.7 L 80.6 MCH 27.0 26.7 L MCHC 33.9 33.1 RDW 12.6 13.1 Plt Count 367 321 MPV 9.3 L 9.3 L Immature Gran % (Auto) 0.1 Neut % (Auto) 66.3 Lymph % (Auto) 23.9 [place] % (Auto) 7.8 Eos % (Auto) 1.5 Baso % (Auto) 0.4 Lymph # (Auto) 1.8 [place] # (Auto) 0.6 Eos # (Auto) 0.1 Baso # (Auto) 0.0 Abs Immat Gran (auto) 0.01 Absolute Neuts (auto) 5.0 Absolute Nucleated RBC 0.000 0.000 Nucleated RBC % (auto) 0.0 0.0 Hold Purple Top PT 13.7 H INR 1.1 Sodium 139 Potassium 3.8 Chloride 111 H Carbon Dioxide 22 Anion Gap 10 L BUN 7 L Creatinine 0.72 Estim Creat Clear Calc 104.3 Estimated GFR > 60 Random Glucose 105 Fasting Glucose Calcium 9.4 Total Bilirubin 1.7 H 3.3 H Direct Bilirubin 0.8 H 1.1 H AST 217 H 324 H ALT 225 H 505 H Alkaline Phosphatase 116 140 H Total Protein 7.5 6.4 L Albumin 4.8 4.2 Lipase 25 Beta HCG, Quant < 2 08/22/25 08/23/25 08/24/25 06:27 05:37 05:28 WBC 6.8 7.9 RBC 4.94 4.67 Hgb 13.3 12.3 Hct 39.4 37.5 MCV 79.8 L 80.3 MCH 26.9 L 26.3 L MCHC 33.8 32.8 RDW 12.7 13.2 Plt Count 314 280 MPV 9.5 10.0 Immature Gran % (Auto) 0.3 Neut % (Auto) 74.1 H Lymph % (Auto) 16.6 L [place] % (Auto) 7.6 Eos % (Auto) 1.1 Baso % (Auto) 0.3 Lymph # (Auto) 1.3 [place] # (Auto) 0.6 Eos # (Auto) 0.1 Baso # (Auto) 0.0 Abs Immat Gran (auto) 0.02 Absolute Neuts (auto) 5.9 Absolute Nucleated RBC 0.000 0.000 Nucleated RBC % (auto) 0.0 0.0 Hold Purple Top SEE NOTE PT INR Sodium 137 140 Potassium 3.7 3.5 Chloride 110 H 110 H Carbon Dioxide 18 L 21 L Anion Gap 13 13 BUN 5 L 3 L Creatinine 0.62 0.63 Estim Creat Clear Calc 121.1 119.3 Estimated GFR > 60 > 60 Random Glucose 109 Fasting Glucose 100 H Calcium 9.0 8.9 Total Bilirubin 2.8 H 0.9 1.2 H Direct Bilirubin 1.0 H 0.5 0.5 AST 166 H 46 H 39 H ALT 528 H 318 H 219 H Alkaline Phosphatase 215 H 173 H 173 H Total Protein 6.8 6.3 L 6.1 L Albumin 4.3 3.9 3.6 Lipase 2680 H 703 H 146 H Beta HCG, Quant 08/25/25 08/26/25 05:56 08:54 WBC RBC Hgb Hct MCV MCH MCHC RDW Plt Count MPV Immature Gran % (Auto) Neut % (Auto) Lymph % (Auto) [place] % (Auto) Eos % (Auto) Baso % (Auto) Lymph # (Auto) [place] # (Auto) Eos # (Auto) Baso # (Auto) Abs Immat Gran (auto) Absolute Neuts (auto) Absolute Nucleated RBC Nucleated RBC % (auto) Hold Purple Top SEE NOTE PT INR Sodium 141 Potassium 3.5 Chloride 109 H Carbon Dioxide 25 Anion Gap 11 L BUN 6 L Creatinine 0.59 Estim Creat Clear Calc 127.3 Estimated GFR > 60 Random Glucose 81 Fasting Glucose Calcium 9.2 Total Bilirubin 0.8 0.5 Direct Bilirubin 0.5 AST 39 H 26 ALT 163 H 126 H Alkaline Phosphatase 179 H 176 H Total Protein 6.3 L 6.6 Albumin 3.7 3.8 Lipase 49 Beta HCG, Quant Assessment and Plan Final Anesthetic Review History of Problems with Anesthesia: No Documented by User: Livier Arriaga MD 08/26/25 12:29 PMFSH Family History Family history of problems with anesthesia: No Social History Social History Household Members: Family Housing: Apartment Do you presently have visiting nurse or other home services: No Alcohol intake: never Patient Tobacco Use Status: Never used Tobacco Smoked in Last 30 Days: No Use of substances other than those prescribed or required for medical reasons: No Currently Displaying Signs/Symptoms of Drug Intoxication Withdrawal: No Have you been hit, kicked, punched, or otherwise hurt by someone within the past year? If so, by whom?: No Do you feel safe in your current relationship?: No Current Relationship Is there a partner from a previous relationship who is making you feel unsafe now?: No Are you made to feel afraid or neglected: No Advance Directives: No Advance Directives Information Provided: Yes Do you have a plan to hurt others: No Plan Recently lost weight without trying: No Nutrition Risks: No Nutritional Risk Patient : No : No Poor oral hygiene: No service: No Gender identity: Female Meds Allergies Allergy/AdvReac Type Severity Reaction Status Date / Time No Known Allergies Allergy Verified 08/20/25 21:52 Exam Airway Mallampati Class: II TM Dist: >3cm Neck ROM: Full Heart: rrr Lungs: cta Assessment and Plan Assessment Anesthesia Assessment: Anesthesia Plan Discussed and Chart Reviewed Final Anesthetic Review Family History of Problems with Anesthesia: No NPO: Yes ASA Class: II Final Preanesthetic Review: No Changes in Pt Med Stat, Meds/Allgs Chart Reviewed, Consent Obtained/Reviewed and Anes Risks/Benef Reviewed Patient Risk: Low Procedure Risk: Intermediate Anesthetic Plan Anesthetic Plan: GA and Agree w/ Assess. and Plan Disposition: Standard PACU
[2025-08-26] MEDS: Lactated Ringers 1,000 ML 50 ML IVCONT ×2 (13:00→22:02)
--- NOTE | 2025-08-26 14:06 | P.OP_ITS ---
Operative Note Operative Note Date of Service: 08/26/25 Narrative: Preoperative diagnosis: Symptomatic cholelithiasis and history of choledocholithiasis Postoperative diagnosis: Same Procedure performed: Laparoscopic cholecystectomy Surgeon: Abdelrahman Paulino MD Optometrist/Practice Owner: REGINO Landry Specimen: Gallbladder and contents Findings: Cholelithiasis and markedly fatty liver Anesthesia: GETA Blood Loss: Minimal The patient was brought to the operating room and placed supine on the table. The arms and legs were cushioned appropriately and Venodyne boots were cycled. The patient's abdomen was then prepped and draped in the standard sterile fashion. After this approximately 20 cc of Marcaine without epinephrine were infused in the skin and soft tissue in the infraumbilical region of the patient's abdomen. Through this locally anesthetized site disturbances with created with a 11. Blade following Danny's lines of the skin. It was carried down with a combination of blunt sharp dissection to the level of the umbilical root which was grasped elevated exposing the median raphe. A stab incision was then created the median raphe and gently spread with a Schnidt clamp allowing access to the peritoneal cavity. A 12 mm trocar port was then placed and CO2 gas was insufflated to create a pneumoperitoneum. Once the anterior abdominal pressure reached approximately 1 5 mmHg the intra-abdominal contents were surveyed with the laparoscope. There is no evidence of injury from placement of either local anesthetic or to the laparoscopic trocar port. The patient was placed in reverse Trendelenburg position with her left side down. Three more 5 mm ports were placed via separate stab incisions under direct visualization of the laparoscope. First was with a right lateral subcostal 5 mm ports 2nd was a right periumbilical 5 mm port the 3rd was an epigastric 5 mm port. We then used to access retraction technique to expose the region of the cystic duct the cystic artery. Peritoneal soft tissue fatty tissue over the region of the duct and the artery were taken down with a combination of blunt sharp dissection. Both the artery and the cystic duct was skeletonized. The critical view of safety was obtained. The artery and the duct were controlled with three 5 mm clips on the patient's side and one 5 mm clip on the specimen side for each. Division was in between without difficulty with endo Rosario. We then used cautery to excise the gallbladder from the attachments to the gallbladder fossa. Once the gallbladder was completely freed the fossa was inspected. There is no evidence of hemorrhage or bile leakage. All the clips were visualized to be securely in place. The gallbladder was placed in a retrieval bag and delivered the patient's infraumbilical port without difficulty and passed off table the specimen. Final laparoscopic surveillance revealed no evidence of hemorrhage, bile leakage or visceral injury. All the clips were visualized to be securely in place. The pneumoperitoneum was released and a trocar ports removed without difficulty. The fascia underlying the infraumbilical port was closed using 0 Polysorb on a UR 6 needle. All of the incisions were closed with buried 4-0 Monocryl in a subcuticular fashion. Steri-Strips and sterile occlusive dressings were applied. The patient tolerated procedure well, was recovered from anesthesia and taken to the recovery room in good condition. It should be noted that the sponge instrument needle counts were correct in the case and that I directly supervised or performed all aspects of the case. Also discussed the details case with the patient afterward.
[2025-08-26] MEDS: oxyCODONE HCl Immed Release 5 MG TABLET PO (22:00)
[2025-08-27 03:49] VITALS: BP 129/76; PULSE 66; RESP 16; TEMP 36.7; O2SAT 98
[2025-08-27] MEDS: oxyCODONE HCl Immed Release 5 MG TABLET PO ×2 (04:03→10:23)
[2025-08-27 07:33] VITALS: BP 123/76; PULSE 58; RESP 14; TEMP 36.4; O2SAT 98
--- NOTE | 2025-08-27 10:04 | P.PNGS_ITS ---
Subjective Subjective Date of Service: 08/27/25 Interval history: doing well, complaining of some soreness at the incision sites. THere is Physical Exam 2 Vital Signs: Vital Signs: Last Vital Signs Temp 97.5 F 08/27/25 07:33 Pulse 58 08/27/25 07:33 Resp 14 08/27/25 07:33 BP 123/76 08/27/25 07:33 Pulse Ox 98 08/27/25 07:33 O2 Del Method Room Air 08/27/25 07:33 BMI result Body Mass Index 31.7 Const: General: comfortable and no acute distress O rientation/consciousness: patient oriented x3 Resp: Effort & Inspection: normal respiratory effort and able to speak in complete sentences GI: Other: incisions site dressings in place, clean and dry Inspection: No distended Palpation (GI): Soft to palpation and Tenderness to palpation present (GI) (mild incisional) Neuro: General: patient oriented x3 Objective Data Active Medications Acetaminophen (Acetaminophen 325 Mg Tablet) 650 mg PO Q6H PRN PRN Reason: Pain, Mild 1-3,fever,headache Lactated Ringer's (Lr) 1,000 mls @ 50 mls/hr IVCONT .Q20H JESUS Last Admin: 08/26/25 22:02 Dose: 50 mls/hr Documented By: CHITO Melatonin (Melatonin 3 Mg Tablet) 6 mg PO BEDTIME PRN PRN Reason: Insomnia Last Admin: 08/26/25 01:38 Dose: 6 mg Documented By: ARIC Morphine Sulfate (Morphine Sulfate 10 Mg/Ml Cartridge) 5 mg IVPUSH Q4H PRN; Protocol PRN Reason: Pain, Severe (Pain Scale 7-10) Last Admin: 08/27/25 05:13 Dose: 5 mg Documented By: CHITO Ondansetron HCl (Ondansetron Hcl 4 Mg/2 Ml Vial) 4 mg IVPUSH Q8H PRN PRN Reason: Nausea and Vomiting Last Admin: 08/22/25 05:51 Dose: 4 mg Documented By: KRISTA Oxycodone HCl (Oxycodone Hcl Immed Release 5 Mg Tablet) 5 mg PO Q4H PRN PRN Reason: Pain, Moderate(Pain Scale 4-6) Last Admin: 08/27/25 04:03 Dose: 5 mg Documented By: CHITO Sodium Chloride (0.9 % Sodium Chloride Flush 3 Ml Syringe) 3 ml IVFLUSH QSHIFT [facility] Last Admin: 08/27/25 07:52 Dose: Not Given Documented By: RAHEEM Non-Admin Reason: IV Running Labs 08/23/25 05:37 08/26/25 08:54 Labs: Laboratory Results - last 24 hr 08/26/25 08:54 Anion Gap 11 L Estim Creat Clear Calc 127.3 Estimated GFR > 60 Random Glucose 81 Calcium 9.2 Total Bilirubin 0.5 AST 26 ALT 126 H Alkaline Phosphatase 176 H Total Protein 6.6 Albumin 3.8 Procedures Date of Service Date of Service: 08/27/25 Progress Note: A&P Assessment and plan (1) Biliary colic: Status: Acute (2) Pancreatitis: Status: Acute (3) Choledocholithiasis: Status: Acute (4) S/P laparoscopic cholecystectomy: Status: Acute Plan 25-year-old female with known biliary colic admitted for choledocholithiasis s/p ERCP complicated by pancreatitis. Now POD1 s/p laparoscopic cholecystectomy.Feels good today, some mild soreness in the RUQ. Diet advanced This morning, to regular diet. Tolerated clears last night. She denies nausea. Ambulating within the room well. Denies issues with urination. Bilirubin is normalized, the transaminases continue to decrease, expect this to normalize over the next few days. On exam abdomen is soft with appropriate tenderness related to incision sites. Dressings are in place, i reinforced wound care and activity restrictions. She feels ready to be discharged today. Will discharged today, plan to follow up in 2 weeks in the office. Time Spent With Patient Time: Total time managing care of this patient today ____ minutes. Quality Stroke Does the patient have a stroke diagnosis?: No VTE Prior VTE?: No VTE Risk Level:: Surgical - low VTE Device Contraindication: N/A - Device Ordered VTE Drug Contraindication: N/A - Med Ordered
--- NOTE | 2025-08-27 10:45 | HO.POSTANES ---
Post Anesthesia Evaluation Post Anesthesia Evaluation Date of Service: 08/27/25 Vital Signs: Vital Signs Temp Pulse Resp BP Pulse Ox O2 Del Method 08/27/25 07:33 97.5 F 58 14 123/76 98 Room Air 08/27/25 03:49 98.0 F 66 16 129/76 98 Room Air 08/26/25 23:07 97.5 F 69 18 120/66 97 Room Air Anesthesia: General Mental Status: Awake Pain Control: Satisfactory Nausea/Vomiting: None Hydration: Adequate Anesthesia-Related Issues: No Anes. Related Issues
[2025-08-27 12:00] VITALS: BP 115/56; PULSE 86; RESP 14; TEMP 36.5; O2SAT 96
--- NOTE | 2025-08-27 12:54 | PM.DS ---
DS: Providers Provider Date of admission: 08/21/25 08:17 Date of discharge: 08/27/25 Primary care physician: [facility] Admitting clinician: Abdelrahman Paulino Attending physician on admission: Abdelrahman Paulino Consults: 08/21/25 08:17 Consult to Gastroenterology Routine Consulting Provider: Abdelrahman Paulino Reason for consultation: Opinion regarding ERCP for possible choledocholithiasis Has provider been notified: No Attending physician on discharge: Abdelrahman Paulino DS: Diagnosis Discharge Diagnosis (1) Biliary colic: Status: Acute (2) Pancreatitis: Status: Acute (3) Choledocholithiasis: Status: Acute (4) S/P laparoscopic cholecystectomy: Status: Acute DS: Summary Hospital Course Hospital Course: ADmission HPI: Gilberto Flores is a 25 year old female with known history of biliary colic who is scheduled for cholecystectomy presents with complaints of unremitting epigastric abdominal pain. She reports this pain isn't related to eating and came on when she was shopping yesterday. She denies any fevers or chills. Imaging remarkable for cholelithiasis with distended gallbladder. Labs unremarkable apart from a hyperbilirubinemia. The patient reports that she does not really know if her urine is dark are not. Hospital course: Patient was admitted fro elevated liver enzymes, CT showing evidence of cholecystitis. Patient was started on IV antibiotics. GI was consutled for possible CBD stone. They recommended ERCP. Patient had ERCP on 08/[address] Odonnell which found a small CBD stone, sphincterotomy was performed. POD 1 after ERCP patient struggling with pain. POD2 was found to have pancreatitis after elevated lipase. Treated with bowel rest, fluids. We trended her labs over the next few days, which were slowly decreasing. She was feeling somewhat improved but had continued pain in RUQ, epigastric area without nausea or vomiting. Was made NPO on 08/26 for lap rickey. Pancreatitis had resovled at that point but liver enzymes elevated but trending down. Patient had an uncomplicated lap rickey and was transferred back to the [facility]. Diet was advance to clears. POD 1 she was toelrating this well, we advanced diet that morning for which she tolerated. pain was minimal. She felt ready to go home. Liver enzymes continued to decrease, bilirubin WNL. She was discharged that afternoon. At the time of discharge the patient was in stable condition, her abdomen was soft, appropriately tender in the RUQ incision sites. She will follow up in 1-2 weeks as outpt Status at Discharge Functional status at discharge: independent ambulation Overall status at discharge: patient is progressing back to baseline Time Attestation Discharge Coordination Time (in mins): 30 Quality: Safe Use of Opioids Does Pt have an Active Cancer Diagnosis on the Problem List?: No Quality: Stroke Does the patient have a stroke diagnosis?: No Physical Exam Vital Signs: Vital Signs: Last Vital Signs Temp 97.7 F 08/27/25 12:00 Pulse 86 08/27/25 12:00 Resp 14 08/27/25 12:00 BP 115/56 L 08/27/25 12:00 Pulse Ox 96 08/27/25 12:00 O2 Del Method Room Air 08/27/25 12:00 BMI result Body Mass Index 31.7 Const: General: comfortable and no acute distress Orientation/consciousness: patient oriented x3 Resp: Effort & Inspection: normal respiratory effort and able to speak in complete sentences GI: Other: incisions site dressings in place, clean and dry Inspection: No distended Palpation (GI): Soft to palpation and Tenderness to palpation present (GI) (mild incisional) Neuro: General: patient oriented x3 DS: Data Data Completed and Pending Pending studies at discharge: Pending at discharge 08/26/25 14:22 Surgical [PTH] Routine Discharge Plan Discharge Anticipated Discharge Date/Time: 08/24/25 08:56 Patient Disposition: Home, Self-Care Discharge Diagnosis: s/p laparoscopic cholecystectomy Referrals: [place] [Primary Care Provider, Medical] - 1 Week Discharge Medications: New docusate sodium [Colace] 100 mg capsule 100 mg PO BID Qty: 30 0RF oxycodone 5 mg tablet 5 mg PO Q6H PRN (Reason: pain) Qty: 20 0RF Rx Instructions: Partial Fill upon patient request. Continued ibuprofen 600 mg tablet 600 mg PO Q8H PRN (Reason: fever or pain) Qty: 30 0RF ondansetron 4 mg tablet,disintegrating 4 mg PO Q8H PRN (Reason: nausea and vomiting) Qty: 10 0RF Discharge Orders: Discharge Order (Routine); Ordered 08/27/25 Ordered By: Wilmer Amezquita Diet: Low fat, low cholesterol Activity on Discharge: No heavy lifting Stand Alone Forms: Patient Portal Discharge page Print Language: Yakut Activity Restrictions/Additional Instructions: If your incision site is sore, you may apply ice to the area for short periods of time (no more than 20 minutes at a time, followed by 20 minutes off). You were prescribed oxycodone to assist with pain management as needed. You can additionally use OTC ibuprofen or acetaminophen as needed for pain. You can remove the dressings at home, they do not need to be redressed. Steri strips can remain in place and will likely fall on their own or in the shower. No heavy lifting >20 pounds No strenuous activity. Do not use creams, lotion, ointment on the incision sites You will follow up with Dr. Paulino in the office in 1 week, you can call the office to schedule the appointment ) Please reach out to the office or be seen at the emergency department if you develop: -Fever >101.5 -Increasing pain or swelling of the area -Increased bleeding from the incision site or the incision begins to separate -If you are concerned for incision site infection such as redness, warmth, discharge. Some yellow/pink tinged discharge is normal -You develop nausea or vomiting Care Plan Goals: return to baseline Health Concerns: post op pain pancreatitis elevated liver enzymes Plan of Treatment: follow up in the office in 1-2 weeks Assessment: patient doing well Discharge Date/Time: 08/27/25 13:41
--- NOTE | 2025-08-27 13:06 | MHC.CM.PN ---
Patient medically cleared for dc home self care via private transport.
== END 2025-08-27 13:41 | disposition home or self-care (01) | DRG 263 ==
LOC: HO.ED 08-21 06:30 → HO.EDOVER 08-21 08:24 → HO.S3 08-21 10:30
PROVIDERS: Emergency Medicine; Internal Medicine; Internal Medicine Gastroenterology; Physician Assistant Medical; Surgery; Admitting Provider Surgery; Emergency Provider Emergency Medicine; Visit Provider Surgery
PROC: 0FC98ZZ Extirpation of Matter from Common Bile Duct, Via Natural or Artificial Opening Endoscopic (ICD-10-PCS; CPT 43260; principal; 2025-08-21 14:00)
PROC: 0FT44ZZ Resection of Gallbladder, Percutaneous Endoscopic Approach (ICD-10-PCS; CPT 47562; principal; 2025-08-26 13:00)
DX: K80.70 Calculus of gallbladder and bile duct without cholecystitis without obstruction (principal); K85.90 Acute pancreatitis without necrosis or infection, unspecified; K76.0 Fatty (change of) liver, not elsewhere classified; Z79.899 Other long term (current) drug therapy
CPT/HCPCS: 36415; 74177; 74181; 80048; 80053; 80076; 82248; 83690; 84702; 85025; 85027; 85610; 88304; 99284; C1748; J0131; J0696; J1100; J1171; J1610; J1836; J1885; J2003; J2250; J2270; J2405; J2543; J2704; J3010; J7120; Q9967

== ENCOUNTER → 2025-08-21 01:35 | Outpatient (BNV) | payer MEDICAID, SELFPAY | PROVIDERS: Emergency Provider Emergency Medicine; Visit Provider Radiology Diagnostic Radiology | DX: K82.8 Other specified diseases of gallbladder (principal); K80.20 Calculus of gallbladder without cholecystitis without obstruction; N83.291 Other ovarian cyst, right side | CPT/HCPCS: 74177; 74181 ==

== ENCOUNTER → 2025-08-21 01:38 | Outpatient (BNV) | payer MEDICAID, SELFPAY | PROVIDERS: Emergency Provider Emergency Medicine; Visit Provider Surgery | DX: K80.20 Calculus of gallbladder without cholecystitis without obstruction (principal) | CPT/HCPCS: 99222; 99232; 99233 ==

== ENCOUNTER → 2025-08-21 08:17 | Outpatient (BNV) | payer MEDICAID, SELFPAY | PROVIDERS: Admitting Provider Surgery; Emergency Provider Emergency Medicine; Visit Provider Internal Medicine Gastroenterology | DX: K83.1 Obstruction of bile duct (principal) | CPT/HCPCS: 99222 ==

== ENCOUNTER 2025-09-08 12:10 | Outpatient (AMB) | payer MEDICAID, SELFPAY ==
--- NOTE | 2025-09-08 12:11 | A.OFFVIS_ITS ---
Vital Signs 09/08/25 12:12 Height 4 ft 11 in Weight 148 lb BMI 29.9 BP 142/83 H Blood Pressure Location Rt brachial Position Sitting Pulse 87 Intake Visit Reasons: s/p Lap Telma Intake Note: Patient here s/p Laparoscopic cholecystectomy. Patient c/o: reports no complaints pertaining to surgery. Surgery (JK): 08-26-2025 Emergency Medical Technician Basic Required: No Accompanied by: Self / Same As Patient Allergies No Known Allergies Allergy (Verified 09/08/25 12:18) HPI HPI s/p Lap Telma: Details: Doing well has no concerns. Reports her diet is good, bowel function is normal. Taking pain medication as needed. Taking Colace alongside this. Denies nausea or vomiting, denies constipation or diarrhea. Reports her incision sites are healing well, Band-Aids fell off, denies redness or drainage. Denies fevers at home PFSH Surgical History Hx laparoscopic cholecystectomy (~08/26/25) Social History Household Members: Family Housing: Apartment Do you presently have visiting nurse or other home services: No Alcohol intake: never Patient Tobacco Use Status: Never used Tobacco service: No Gender identity: Female Female Reproductive History Menstrual Age of Menarche: 14 Physical Exam Vital Signs: Last Vital Signs Pulse 87 09/08/25 12:12 BP 142/83 H 09/08/25 12:12 BMI result Body Mass Index 29.9 Const General: comfortable and no acute distress Orientation/consciousness: patient oriented x3 Resp Effort & Inspection: normal respiratory effort and able to speak in complete sentences GI Other: Well healed incision sites, no erythema, no edema, no fluctuance Inspection: No distended Palpation (GI): Soft to palpation and nontender Neuro General: patient oriented x3 Assessment & Plan Assessment & Plan (1) S/P laparoscopic cholecystectomy: Code(s): Z90.49 - Acquired absence of other specified parts of digestive tract Category: Surgical Plan 25-year-old female s/p laparoscopic cholecystectomy on 08/27/[address] Paulino. Patient was admitted for choledocholithiasis. Had ERCP with sphincterotomy. Liver enzymes trended down. Patient continued to have right upper quadrant pain so we proceeded with laparoscopic cholecystectomy while inpatient. She was later discharged. She reports she has been doing well since surgery. Diet and bowel function are at baseline. She has no concerns about her incision sites, denies fevers at home denies any drainage from incisions. Has been avoiding heavy lifting, wondering when she can get back to activity. We discussed this, my recommendation is for one-month of no heavy lifting from the surgery date. She is agreeable to this plan. Otherwise she is doing well. On exam abdomen is soft and benign, incision sites appear well healed, there was no evidence of infection at this time. We will continue with activity restrictions for a total of one-month postoperatively, patient no longer requiring follow up, can follow up as needed with any questions or concerns in the future. Pathology report showing chronic cholecystitis cholelithiasis cholesterolosis Coding Level of Care Code Global (36376) Diagnoses S/P laparoscopic cholecystectomy Z90.49
[2025-09-08 12:12] VITALS: BP 142/83; PULSE 87; BMI 29.9
--- OUTSIDE RECORDS SUMMARY | 2025-09-08 16:10 | XMS_ITS | Clinical Summary ---
Author Organization [employer] Address [address] [facility] 7t [place] [address] Care Team Providers Care Mysql Dba Name Role Phone Ewa Cade [facility] Primary Care Provider [phone] Allergies No known active allergies Medications * [...] Data 07/08/2025 11:30 AM EDT Office Visit [facility] [address] [place] [phone] [facility] Gestational hypertension without significant proteinuria, (Primary Dx); [...] Description 09/25/2025 11:00 AM EST Office Visit [facility] [address] [place] [address] Porter, Yoana, OD [address] [place] [address] 09/30/2025 10:30 AM EST Office Visit [facility] [address] [place] [address] [place], [place], [facility] [address] [place] [address] Health Maintenance Due Date Last Done Comments [...] Procedure Name Priority Date/Time Associated Diagnosis Comments FL GUIDANCE IN OR Routine 08/21/2025 3:0 0 PM EST MR MRCP Routine 08/21/2025 12:[address] ABDOMEN PELVIS W CONTRAST Routine 08/21/2025 4:06 AM EST HCG, TOTAL, QN Routine 08/20/2025 10:07 PM EST LIPASE Routine 08/20/2025 10:07 PM EST BILIRUBIN, DIRECT Routine 08/20/2025 10: 07 PM EST COMPREHENSIVE METABOLIC PANEL Routine 08/20/2025 10:07 PM EST US ABDOMEN LIMITED Routine 08/16/2025 8: 19 [...] EST from Last 3 Months Results * FL Guidance in OR (08/21/2025 3:00 PM EST) Anatomical Region Laterality Modality X-Ray Angiograph y 08/21/2025 3:00 PM EST Narrative 08/24/2025 10:07 AM EST [address] [address] Fluoroscopy Report Signed Patient: Gilberto Flores MR#: [id number] : 2000 Acct:[id number] Age/Sex: 25 / F ADM Date: 08/21/25 Loc: .S3 385-[address]: Abdelrahman Paulino MD Ordering Physician: Trey Odonnell MD Date of Service: 08/21/25 Procedure(s): FL guidance in OR Accession Number(s): [id number] cc: [facility]; Trey Odonnell MD Reason for Exam: ercp EXAMINATION: XR FLUOROSCOPY WITH IMAGES CLINICAL INFORMATION: ERCP COMPARISON: MRI 08/21/2025 TECHNIQUE: Fluoroscopy time: 2.40 minutes DAP: 14 mGy FINDINGS: Fluoroscopy provided for ERCP procedure. There is contrast opacifying the CBD, intrahepatic bile ducts , and the gallbladder. No radiologist present. FL/FL guidance in OR IMPRESSION: Fluoroscopy provided for procedure. See procedure report for details. Electronically signed by: Clark Mcgee MD 08/24/2025 10:04 AM EST Dictated By: Clark Mcgee MD Signed By: <Electronically signed by Clark Mcgee MD in OV> 08/24/25 1004 DD/ 1500 TD/TT: 08/21/25 1540 Crane Engineer: Procedure Note Donotuseinterpreter, Image - 08/24/2025 [place] [address] Fluoroscopy Report Signed Patient: Marlene Flores#: [id number] : 2000Acct:[id number] Age/Sex: 25 / FADM Date: 08/21/25 Loc: HO.S3 385-[address]: Abdelrahman Paulino MD Ordering Physician: Trey Odonnell MD Date of Service: 08/21/25 Procedure(s): FL guidance in OR Accession Number(s): [id number] cc: [facility]; Trey Odonnell MD Reason for Exam: ercp EXAMINATION: XR FLUOROSCOPY WITH IMAGES CLINICAL INFORMATION: ERCP COMPARISON: MRI 08/21/2025 TECHNIQUE: Fluoroscopy time: 2.40 minutes DAP: 14 mGy FINDINGS: Fluoroscopy provided for ERCP procedure. There is contrast opacifying the CBD, intrahepatic bile ducts , and the gallbladder. No radiologist present. FL/FL guidance in OR IMPRESSION: Fluoroscopy provided for procedure. See procedure report for details. Electronically signed by: Clark Mcgee MD 08/24/2025 10:04 AM EST Dictated By: Clark Mcgee MD Signed By: <Electronically signed by Clark Mcgee MD in OV> 08/24/25 1004 DD/ 1500 TD/TT: 08/21/25 1540 Crane Engineer: CIRILO us [facility] External Provider IMG IR PROCEDURES Final Result * MR MRCP (08/21/2025 12:16 PM EST) Anatomical Region Laterality Modality Lower Extremities Left Magnetic Reson ance 08/21/2025 12:1 6 PM EST Narrative 08/21/2025 1:00 PM EST [place] [address] Magnetic Resonance Report Signed Patient: Gilberto Flores MR#: [id number] : 2000 Acct:[id number] Age/Sex: 25 / F ADM Date: 08/21/25 Loc: .S3 385-[address]: Abdelrahman Paulino MD Ordering Physician: James Avelar MD Date of Service: 08/21/25 Procedure(s): MR MRCP Accession Number(s): [id number] cc: [facility]; James Avelar MD Reason for Exam: Biliary obstruction EXAMINATION: MRCP HISTORY: Biliary obstruction COMPARISON: Correlation is made with abdominal CT and ultrasound examinations dated 08/16/2025. TECHNIQUE: Axial gradient echo in and out of phase T1, axial T2 and fat suppressed T2, and coronal haste T2 with fat saturation images were obtained through the abdomen. 3D MRCP Reconstructed images and thick slab imaging of the biliary tree were obtained. FINDINGS: There is no significant signal loss within the liver on opposed phase imaging to suggest steatosis. There is no significant intrahepatic biliary ductal dilatation. The common bile duct is normal in caliber. No intraluminal filling defects are identified to suggest choledocholithiasis. Multiple tiny calculi are seen in the gallbladder. There is a small amount of pericholecystic fluid. The spleen, pancreas, adrenals, and kidneys are unremarkable. No retroperitoneal lymphadenopathy or ascites is identified in the upper abdomen. The visualized bones demonstrate normal marrow signal intensity. Incidental note is made of a 2.9 cm right ovarian cyst versus dominant follicle. MR/MR MRCP IMPRESSION: 1. Cholelithiasis and a small amount of pericholecystic fluid. No evidence of choledocholithiasis. 2. 2.9 cm right ovarian cyst versus dominant follicle. Electronically signed by: Trey Alexandra MD 08/21/2025 12:57 PM [facility] Dictated By: Trey Alexandra MD Signed By: <Electronically signed by Trey Alexandra MD in OV> 08/21/25 1257 DD/ 1216 TD/TT: 08/21/25 1225 Crane Engineer: Procedure Note Donotuseinterpreter, Image - 08/21/2025 [place] [address] Magnetic Resonance Report Signed Patient: Marlene Flores#: [id number] : 2000Acct:[id number] Age/Sex: 25 / FADM Date: 08/21/25 Loc: HO.S3 385-[address]: Abdelrahman Paulino MD Ordering Physician: James Avelar MD Date of Service: 08/21/25 Procedure(s): MR MRCP Accession Number(s): [id number] cc: [facility]; James Avelar MD Reason for Exam: Biliary obstruction EXAMINATION: MRCP HISTORY: Biliary obstruction COMPARISON: Correlation is made with abdominal CT and ultrasound examinations dated 08/16/2025. TECHNIQUE: Axial gradient echo in and out of phase T1, axial T2 and fat suppressed T2, and coronal haste T2 with fat saturation images were obtained through the abdomen. 3D MRCP Reconstructed images and thick slab imaging of the biliary tree were obtained. FINDINGS: There is no significant signal loss within the liver on opposed phase imaging to suggest steatosis. There is no significant intrahepatic biliary ductal dilatation. The common bile duct is normal in caliber. No intraluminal filling defects are identified to suggest choledocholithiasis. Multiple tiny calculi are seen in the gallbladder. There is a small amount of pericholecystic fluid. The spleen, pancreas, adrenals, and kidneys are unremarkable. No retroperitoneal lymphadenopathy or ascites is identified in the upper abdomen. The visualized bones demonstrate normal marrow signal intensity. Incidental note is made of a 2.9 cm right ovarian cyst versus dominant follicle. MR/MR MRCP IMPRESSION: 1. Cholelithiasis and a small amount of pericholecystic fluid. No evidence of choledocholithiasis. 2. 2.9 cm right ovarian cyst versus dominant follicle. Electronically signed by: Trey Alexandra MD 08/21/2025 12:57 PM EST Dictated By: Trey Alexandra MD Signed By: <Electronically signed by Trey Alexandra MD in OV> 08/21/25 1257 DD/ 1216 TD/TT: 08/21/25 1225 Crane Engineer: [facility] External Provider IMG MRI PROCEDURES Final Result * CT Abdomen Pelvis w/ Contrast (08/21/2025 4:06 AM EST) Anatomical Region Laterality Modality Body, Pelvis, Abdomen Computed T omography 08/21/2025 4:06 AM EST Narrative 08/21/2025 4:08 AM EST [address] [address] [address] Scan Report Signed Patient: Gilberto Flores MR#: [id number] : 2000 Acct:[id number] Age/Sex: 25 / F ADM Date: 08/21/25 Loc: HO.ED Attending Dr: Ordering Physician: Erica Tubbs Date of Service: 08/21/25 Procedure(s): CT abdomen pelvis w IV con Accession Number(s): [id number] cc: Erica Tubbs; [facility] Report Number: [id number]: Total DLP = 0.00 mGy-cm Reason for Exam: biliary obstruction, LFTs up, known stones CLINICAL HISTORY: biliary obstruction, LFTs up, known stones CT abdomen and pelvis with contrast Comparison: None provided Findings: The lung bases are clear. Abdominal solid organs without focal lesions or abnormal enhancement. The adrenal glands are nonenlarged. The gallbladder is distended. However, there no evidence of gallbladder wall thickening or pericholecystic fluid. There is mild diffuse intrahepatic biliary dilatation. Tiny gallstones are noted within the gallbladder lumen. CBD not significantly dilated. The stomach and bowel loops are nondistended. There are no focal colonic lesions or pneumatosis. There is no mesenteric inflammation. The appendix is normal. No free fluid, free air or collections in the peritoneal cavity No aortic dissection or aneurysm. No abdominopelvic lymphadenopathy. The bladder is normal. There is a nearly 3 cm right-sided adnexal cyst. Smaller left-sided adnexal cyst also noted. No pelvic free fluid. There is no acute soft tissue or skeletal abnormality in the abdomen or pelvis. IMPRESSION: Distended gallbladder. Tiny gallstones within the gallbladder lumen. There is mild diffuse intrahepatic biliary dilatation. Recommend further evaluation with right upper quadrant ultrasound. Small right-sided adnexal cyst. The examination is otherwise unremarkable. This document has been electronically signed by: Lamin Beaver MD on 08/21/2025 04:06:18 Dictated By: Lamin Beaver MD Signed By: <Electronically signed by Lamin Beaver MD in OV> 08/21/25406 DD/ 5 TD/TT: 08/21/25405 Crane Engineer: Procedure Note Donotuseinterpreter, Image - 08/21/[address] [address] [address] Scan Report Signed Patient: Marlene Flores#: [id number] : 2000Acct:[id number] Age/Sex: 25 / FADM Date: 08/21/25 Loc: HO.ED Attending Dr: Ordering Physician: Erica Tubbs Date of Service: 08/21/25 Procedure(s): CT abdomen pelvis w IV con Accession Number(s): [id number] cc: Erica Tubbs; [facility] Report Number: [id number]: Total DLP = 0.00 mGy-cm Reason for Exam: biliary obstruction, LFTs up, known stones CLINICAL HISTORY: biliary obstruction, LFTs up, known stones CT abdomen and pelvis with contrast Comparison: None provided Findings: The lung bases are clear. Abdominal solid organs without focal lesions or abnormal enhancement. The adrenal glands are nonenlarged. The gallbladder is distended. However, there no evidence of gallbladder wall thickening or pericholecystic fluid. There is mild diffuse intrahepatic biliary dilatation. Tiny gallstones are noted within the gallbladder lumen. CBD not significantly dilated. The stomach and bowel loops are nondistended. There are no focal colonic lesions or pneumatosis. There is no mesenteric inflammation. The appendix is normal. No free fluid, free air or collections in the peritoneal cavity No aortic dissection or aneurysm. No abdominopelvic lymphadenopathy. The bladder is normal. There is a nearly 3 cm right-sided adnexal cyst. Smaller left-sided adnexal cyst also noted. No pelvic free fluid. There is no acute soft tissue or skeletal abnormality in the abdomen or pelvis. IMPRESSION: Distended gallbladder. Tiny gallstones within the gallbladder lumen. There is mild diffuse intrahepatic biliary dilatation. Recommend further evaluation with right upper quadrant ultrasound. Small right-sided adnexal cyst. The examination is otherwise unremarkable. This document has been electronically signed by: Lamin Beaver MD on 08/21/2025 04:06:18 Dictated By: Lamin Beaver MD Signed By: <Electronically signed by Lamin Beaver MD in OV> 08/21/25406 DD/ 5 TD/TT: 08/21/25405 Crane Engineer: us [facility] External Provider IMG CT PROCEDURES Final Result * hCG, Total, Quantitative (08/20/2025 10:07 PM EST) Only the most recent of2 resultswithin the time period is included. HCG Quantitative <2 mIU/mL [facility] Comment:Weeks post LMP Appro ximate hCG(Last Menstrual Period) Range (mIU/ml)3 - 4 weeks 9 - 1304 - 5 weeks 75 - 2,6005 - 6 weeks 850 - 20,8006 - 7 weeks 4000 - 100,2007 - 12 weeks 11,500 - 289,22667 - 16 weeks 18,300 - 137,41140 - 29 weeks (2nd trimester) 1,400 - 53,18465 - 41 weeks (3rd trimester) 940 - 60,000The Ruiz B- hCG assay is used for the early detection ofpregnancy; it cannot be used to diagnose any conditionunrelated to . If a B-hCG level is not supportedby the clinical evidence, results should be confirmed by analternative method (qualitative urine hCG, for example). 08/20/2025 10:0 7 PM EST 08/20/2025 10:15 PM EST Generic External Data Provider LAB BLOOD ORDERAB LES Final Result Performing Organization Address [facility] de Phone Number [facility] [address] [place] [phone] * Lipase (08/20/2025 10:07 PM EST) Lipase 25 8 - 78 U/L [facility] 08/20/2025 10:0 7 PM EST 08/20/2025 10:15 PM EST [employer] External Data Provider LAB BLOOD ORDERAB LES Final Result Performing Organization Address [facility] de Phone Number [facility] [address] [place] [phone] * (ABNORMAL) Bilirubin, Direct (08/20/2025 10:07 PM EST) Bilirubin, Direct 0.8(H) 0.0 - 0.5 mg/dL [facility] 08/20/2025 10:0 7 PM EST 08/20/2025 10:15 PM EST Generic External Data Provider LAB BLOOD ORDERAB LES Final Result Performing Organization Address [facility] de Phone Number [facility] [address] [place] [address] [phone] * (ABNORMAL) Comprehensive Metabolic Panel (08/20/2025 10:07 PM EST) Only the most recent of2 resultswithin the time period is included. Sodium 139 135 - 145 mmol/L [facility] Potassium 3.8 3.3 - 5.1 mmol/L [facility] Chloride 111(H) 96 - 108 mmol/L [facility] Carbon Dioxide 22 22 - 29 mmol/L [facility] Anion Gap 10(L) 12 - 20 [facility] Urea Nitrogen (BUN) 7(L) 9 - 16 mg/dL [facility] Creatinine, Serum 0.72 0.5 - 1.4 mg/dL [facility] Creatinine Clr Calc Pharmacy 104.3 [facility] Comment:Provided height and weight: 149.86 cm,71.214 kg.eGFR (calculated from the MDRD study equation) and eCrCl(calculated from the Cockcroft-Gault equation) are based ondifferent parameters and may not yield comparable results.If eCrCl result is absurd, please check patient'sheight/weight. Estimated Glomerular Filt Rate >60 [facility] Comment:Chronic Kidney Disea se: Estimated GFR < 60 mL/min/1.79e6Cebowv Kidney Disease: Estimated GFR < 15 mL/min/1.73m2 Glucose 105 60 - 115 mg/dL [facility] Calcium 9.4 8.4 - 10.2 mg/dL [facility] Bilirubin, Total 1.7(H) 0.0 - 1.0 mg/dL [facility] Aspartate Amino Transferase 217(H) 5 - 31 U/L [facility] Alanine Aminotransferase 225(H) 0 - 31 U/L [facility] Total Protein 7.5 6.5 - 8.0 g/dL [facility] Albumin Level 4.8 3.5 - 5.0 g/dL [facility] Alkaline Phosphatase 116 39 - 117 U/L [facility] 08/20/2025 10:0 7 PM EST 08/20/2025 10:15 PM EST us Generic External Data Provider LAB BLOOD ORDERAB LES Final Result Performing Organization Address City/State/[facility] Co de Phone Number [facility] [address] [place] [phone] * US Abdomen Limited (08/16/2025 8:19 AM EST) Anatomical Region Laterality Modality Abdomen Ultrasound 08/16/2025 8:19 AM EST Narrative 08/16/2025 8:21 AM EST [address] [address] Ultrasound Report Signed Patient: Gilberto Flores MR#: [id number] : 2000 Acct:[id number] Age/Sex: 25 / F ADM Date: 08/16/25 Loc: HO.ED Attending Dr: Ordering Physician: Blanca Jones DO Date of Service: 08/16/25 Procedure(s): US abdomen limited Accession Number(s): [id number] cc: Blanca Jones DO; [facility] Reason for Exam: RUQ pain eval for [...] in OV> 08/16/25819 DD/ 8 TD/TT: 08/16/25818 Crane Engineer: Procedure Note Donotuseinterpreter, Image - 08/16/[address] [address] Ultrasound Report Signed Patient: Marlene Flores#: [id number] : 2000Acct:[id number] Age/Sex: 25 / FADM Date: 08/16/25 Loc: HO.ED Attending Dr: Ordering Physician: Blanca Jones DO Date of Service: 08/16/25 Procedure(s): US abdomen limited Accession Number(s): [id number] cc: Blanca Jones DO; [facility] Reason for Exam: RUQ pain eval for [...] in OV> 08/16/25819 DD/ 8 TD/TT: 08/16/25818 Crane Engineer: us [facility] External Provider IMG US PROCEDURES Edited Result - Final * XR Chest 1 View (08/16/2025 5:50 AM EST) Anatomical Region Laterality Modality Chest Radiographic Stephie ging 08/16/2025 5:50 AM EST Narrative 08/16/2025 5:53 AM EST [address] [address] XRay Report Signed Patient: Gilberto Flores MR#: [id number] : 2000 Acct:[id number] Age/Sex: 25 / F ADM Date: 08/16/25 Loc: HO.ED Attending Dr: Ordering Physician: Blanca Jones DO Date of Service: 08/16/25 Procedure(s): XR chest 1V Accession Number(s): [id number] cc: Blanca Jones DO; [facility] Reason for Exam: cp/sob CLINICAL HISTORY: cp [...] 08/16/25 0551 DD/ 0550 TD/TT: 08/16/25 0550 Crane Engineer: Procedure Note Donotuseinterpreter, Image - 08/16/2025 [place] [address] XRay Report Signed Patient: Serg FloresR#: [id number] : 2000Acct:[id number] Age/Sex: 25 / FADM Date: 08/16/25 Loc: .ED Attending Dr: Ordering Physician: Blanca Jones DO Date of Service: 08/16/25 Procedure(s): XR chest 1V Accession Number(s): [id number] cc: Blanca Jones DO; [facility] Reason for Exam: cp/sob CLINICAL HISTORY: cp [...] 08/16/25 0551 DD/ 0550 TD/TT: 08/16/25 0550 Crane Engineer: [facility] External Provider IMG XR PROCEDURES Final Result * Influenza A B2 ID NOW (Ruiz) (08/16/2025 3:19 AM EST) IDNOW SERIAL# [id number] [facility] Influenza A Negative Negative [facility] Influenza B2 Negative Negative [facility] Influenza A B2 Note See Note [facility] Comment:The Ruiz ID NOW In [...] GENERAL ORDERABLES Final Result Performing Organization Address City/State/[facility] Co de Phone Number [facility] [address] [place] [phone] * COVID-19 ID NOW (RUIZ) (08/16/2025 3:19 AM EST) IDNOW SERIAL# [id number] [facility] COVID-19 TEST Negative Negative [facility] COVID-19 NOTE See Note [facility] Comment: Results are for the identification of SARS-CoV2 RNA. TheSARS-CoV2 RNA is generally detectable in respiratory samplesduring the acute phase of infection. Positive results areindicative of the presence of SARS-CoV-2 RNA; clinicalcorrelation with patient history and other diagnosticinformation is necessary to determine patient infectionstatus. Positive results do not rule out bacterial infectionor co- infection with other viruses.Testing facilities within the [place] and [facility] are required to report all positive results [...] use by authorized laboratories.Testing performed on the [employer] ID NOW utilizing NAAT. 08/16/2025 3:19 AM EST 08/16/2025 3:30 AM EST Generic External Data Provider LAB MOLECULAR LATOYA GNOST[facility] ORDERABLES Final Result Performing Organization Address [facility] Co de Phone Number [facility] [address] [place] [phone] * High Sensitivity Troponin I (08/16/2025 3:19 AM EST) [facility] TROPONIN I HIGH SENSITIVITY <2.7 <3.5 - 17.0 ng/L [facility] Comment:The Ruiz high sens itivity Troponin-I results should beused in conjunction with other diagnostic information suchas ECG, clinical observations and information, and patientsymptoms to aid in the diagnosis of [place]. 08/16/2025 3:19 AM EST 08/16/2025 3:24 AM EST Generic External Data Provider LAB BLOOD ORDERAB LES Final Result Performing Organization Address [facility] Co de Phone Number [facility] [address] [place] [phone] * (ABNORMAL) CBC auto differential (08/16/2025 3:19 AM EST) [facility] White Blood Count 7.9 4.8 - 10.8 X10*3/uL [facility] Red Blood Count 4.78 4.20 - 5.50 X10*6/uL [facility] Hemoglobin 12.7 12.0 - 16.0 g/dl [facility] Hematocrit 38.4 37.0 - 47.0 % [facility] Mean Corpuscular Volume 80.3 80.0 - 98.0 fL [facility] Mean Corpuscular Hemoglobin 26.6(L) 27.0 - 33.0 pg [facility] Mean Corpuscular HGB Conc 33.1 31.0 - 35.0 g/dl [facility] Red Cell Distribution Width 12.9 11.0 - 16.0 % [facility] Platelet Count 370 160 - 400 X10*3/uL [facility] Mean Platelet Volume 9.5 9.4 - 12.3 fL [facility] Neutrophils Percent Auto 57.6 45 - 73 % [facility] Imm Gran Pct Auto 0.3 0.0 - 0.4 % [facility] Lymphocytes Percent Auto 34.1 20 - 40 % [facility] Monocytes Percent Auto 5.6 2 - 11 % [facility] Eosinophils Percent Auto 1.9 0 - 4 % [facility] Basophils Percent Auto 0.5 0 - 2 % [facility] NRBC Pct Auto 0.0 0.0 - 0.2 /100WBC [facility] Neutrophils Absolute Auto 4.6 2.0 - 8.3 x10*3/uL [facility] Imm Gran Abs Auto 0.02 0.00 - 0.03 X10*3/uL [facility] Lymphocytes Absolute Auto 2.7 1.2 - 4.9 X10*3/uL [facility] Monocytes Absolute Auto 0.4 0.1 - 1.2 X10*3/uL [facility] Eosinophils Absolute Auto 0.2 0.0 - 0.4 X10*3/uL [facility] Basophils Absolute Auto 0.0 0.0 - 0.2 X10*3/uL [facility] NRBC Abs Auto 0.000 0.0 - 0.012 X10*3/uL [facility] 08/16/2025 3:19 AM EST 08/16/2025 3:24 AM EST us Generic External Data Provider LAB BLOOD ORDERAB LES Final Result Performing Organization Address City/[facility]/ZIP Co de Phone Number [facility] [address] [place] [phone] * Magnesium (08/16/2025 3:19 AM EST) Magnesium 2.0 1.6 - 2.6 mg/dL [facility] 08/16/2025 3:19 AM EST 08/16/2025 3:24 AM EST us Generic External Data Provider LAB BLOOD ORDERAB LES Final Result Performing Organization Address City/[facility] Co de Phone Number [facility] [address] [place] [phone] from Last 3 Months Insurance [facility] C3 Care Teams Mysql Dba Relationship Specialty Start Date End Date [place] FNP [address] [place] [phone] PCP - General Family Medicine 03/07/22
== END 2025-09-08 12:28 | disposition home or self-care (01) ==
LOC: HO.HGS 12:10
PROVIDERS: PCP Registered Nurse
DX: Z90.49 Acquired absence of other specified parts of digestive tract (principal)
CPT/HCPCS: 99024

== ENCOUNTER → 2025-09-08 12:10 | Outpatient (BNVA) | payer MEDICAID, SELFPAY | PROVIDERS: PCP Registered Nurse | DX: Z48.815 Encounter for surgical aftercare following surgery on the digestive system (principal); Z90.49 Acquired absence of other specified parts of digestive tract | CPT/HCPCS: 99212 ==